=== PATIENT | female | born 1940 | race American Indian/Alaskan Native ===

== ENCOUNTER 2021-07-19 11:10 | Outpatient (AMBR) | payer MEDICARE, MEDICAID, SELFPAY ==
--- NOTE | 2021-07-19 11:26 | PTNOTE_ITS ---
PT OP Initial Eval Patient Information Visit Reasons: Achilles tendinitis Medical Diagnosis: M76.61 Treatment Dx #1: R ankle pain Start of Care: 07/19/21 Date of Onset: 1 month ago Initial Assessment Subjective Pt is 80 yr old female who reports R ankle pain and points to the Achilles region and lateral malleolus as site of pain. She got a pain injection about 4 weeks ago which gave relief for a week and then pain returned. Pain level today is 6/10 and she can walk about 1/2 a block. PLOF: pt could ambulate further not limited by R ankle pain but she has Hx of L LE pain on back side since last year that limits walking distance. PMH: HTN, allergies, Imaging: results in EMR of R calcaneal spur Pt goal: to get rid of the pain Objective R ankle AROM: DF: 5 deg Plantarflexion: to 40 deg Inv/Eversion 15 deg Strength: Ankle DF 3+/5, PF: 4-/5 TTP: moderate of distal Achilles and lateral mallelous Sensation: intact to light touch of R foot Assessment Pt presentation consistent with referring Dx. Pt has limited ankle DF ROM and gastroc tightness with decreased ankle PF strength with heel raises. Pt has L knee pain that contributes to antalgic gait pattern and painful WB on R foot. Pt requires skilled therapy in order to improve ROM, strength and gait and has fair rehab potential. Eval followed by HEP. Short Term and Half-Way Goals 1. Ind with HEP 2. Improved ankle DF to 10 deg and PF to 50 deg 3. Decreased TTP of R ankle from mod to min 4. Pt will ambulate with symmetrical gait pattern one block Treatment Plan 90 day POC in order to complete visits. Pt requires skilled therapy in order to increase strength, decrease pain and address aforementioned impairments. Rx may consist of Therex, Manual therapy, Neuromuscular re-education, Gait training, and therapeutic activities. Modalities as indicated-moist heat packs, ice packs, estim Frequency and Duration 2x a week for 6 weeks Certification Dates: 07/19/21 to 10/18/21 Office Procedures PT Procedures PT Date of Service: 07/19/21 OP PT Eval Mod Complex 30 minutes: Yes
== END 2021-07-20 23:59 | disposition home or self-care (01) ==
PROVIDERS: PCP Physician Assistant; Referring Provider Physician Assistant; Visit Provider Nurse Practitioner Family
DX: M25.571 Pain in right ankle and joints of right foot (principal); R26.2 Difficulty in walking, not elsewhere classified; I10 Essential (primary) hypertension
CPT/HCPCS: 97162

== ENCOUNTER 2021-07-30 13:39 | Outpatient (AMBR) | payer MEDICARE, MEDICAID, SELFPAY ==
--- NOTE | 2021-07-21 14:05 | PTNOTE_ITS ---
PT Outpatient Daily Note Date of Service: 07/21/21 OP Daily Note Visit Reasons: Achilles tendinitis Outpatient Physical Therapy Treatment Date: 07/21/21 Subjective: Same as time of evaluation Objective: See F/S for therex MT: STM Achilles with Graston x10 Assessment: Min/mod TTP of Achilles today with manual therapy. Pt able to demonstrate proper technique with gastrocnemius stretching in standing. Plan: continue per POC Length of Time (minutes) of Treatment: 30 Minutes Office Procedures PT Procedures PT Date of Service: 07/21/21 Therapeutic Exercise 15 minutes: Yes Manual Salvage Inspector 15 minutes: Yes
--- NOTE | 2021-07-27 13:37 | PTNOTE_ITS ---
PT Outpatient Daily Note Date of Service: 07/27/21 OP Daily Note Visit Reasons: Achilles tendinitis Outpatient Physical Therapy Treatment Date: 07/27/21 Subjective: Not too sore after last visit Objective: See F/S for therex MT: STM Achilles with Graston x10 Assessment: Min/mod TTP of Achilles today with manual therapy. Pt transfers and ambulates slowly and cautiously appropriate for age. Plan: continue per POC Length of Time (minutes) of Treatment: 30 Minutes Office Procedures PT Procedures PT Date of Service: 07/21/21 Therapeutic Exercise 15 minutes: Yes Manual Feeder Switchboard Operator 15 minutes: Yes PT Procedures PT Date of Service: 07/27/21 Therapeutic Exercise 15 minutes: Yes Manual Feeder Switchboard Operator 15 minutes: Yes
--- NOTE | 2021-07-30 14:12 | PTNOTE_ITS ---
PT OP Progress/Discharge Note Date of Service: 07/30/21 Progress Note/DC Note Progress Note/Discharge Note: DC Note Patient Information Visit Reasons: Achilles tendinitis Service Continue Service or Discharge: Discharge Discharge Date: 07/30/21 Status Subjective: Pt is ready to be done with therapy as her ankle is doing much better. It's not hurting except when she does her stretches. Objective: R ankle AROM: DF: 10 deg PF: 50 deg Ankle DF: 4-/5 TTP: min of Achilles MT: STM Achilles with Graston x10 Assessment: Pt has attended the eval and 3 Rx visits and made good progress to meet therapy goals. Pt has improved DF ROM to 10 deg and ankle DF strength is improved. Much less TTP of Achilles with manual therapy. Plan: D/C with HEP Office Procedures PT Procedures PT Date of Service: 07/21/21 Therapeutic Exercise 15 minutes: Yes Manual Infantry Operations Specialist 15 minutes: Yes PT Procedures PT Date of Service: 07/27/21 Therapeutic Exercise 15 minutes: Yes Manual Infantry Operations Specialist 15 minutes: Yes PT Procedures PT Date of Service: 07/30/21 Therapeutic Exercise 15 minutes: Yes Manual Infantry Operations Specialist 15 minutes: Yes
== END 2021-08-19 23:59 | disposition home or self-care (01) ==
PROVIDERS: PCP Nurse Practitioner Family; Referring Provider Nurse Practitioner Family; Visit Provider Nurse Practitioner Family
DX: M25.571 Pain in right ankle and joints of right foot (principal); R26.2 Difficulty in walking, not elsewhere classified; I10 Essential (primary) hypertension
CPT/HCPCS: 97110; 97140

== ENCOUNTER 2024-12-03 11:11 | Inpatient (IN) | payer MEDICARE, MEDICAID, SELFPAY ==
[2024-12-03] VITALS (7 sets, daily range): BP systolic 91–120; BP diastolic 51–65; PULSE 82–150; RESP 18–29; TEMP 36.7–37.3; O2SAT 96–100; BMI 19.1
--- NOTE | 2024-12-03 11:25 | EKG_ITS ---
[facility] Test Date: 2024-12-03 Pat Name: MOY ANDRADE Department: Room: - Gender: Female Skin Toggler: : 1940 Requested By: Melvin Bond Order Number: [id number] Reading MD: Melvin Bond Measurements Intervals Centre Rate: 80 P: 39 OH: 155 QRS: -46 QRSD: 117 T: 59 QT: 337 QTc: 391 Interpretive Statements SINUS RHYTHM WITH OCCASIONAL VENTRICULAR PREMATURE COMPLEXES LEFT ANTERIOR FASCICULAR BLOCK [QRS AXIS <= -45, QR IN I, RS IN II] POSSIBLE ANTERIOR MYOCARDIAL INFARCTION , PROBABLY OLD [30 ms Q WAVE IN V3/V4, OR R < 0.2 mV IN V4] Compared to ECG 01/05/2024 14:15:35 Ventricular premature complex(es) now present Left anterior fascicular block now present Sinus bradycardia no longer present Left-axis deviation no longer present Myocardial infarct finding still present /store/S0/[id number]/ecg/[id number].pdf
--- NOTE | 2024-12-03 11:25 | XR_ITS ---
Examination: AP chest single view Technique one AP portable upright chest single view Exam date and time: December 03, 2024 1255 hours Comparison March 21, 2024 INDICATIONS: COPD diagnosis with shortness of breath today. FINDINGS: Extensive bilateral lung opacity consistent with pneumonia Consider underlying pulmonary fibrosis Ladder prominence left ventricle Moderate ectasia thoracic aorta IMPRESSION: Extensive bilateral pneumonia Consider underlying pulmonary fibrosis
--- NOTE | 2024-12-03 11:26 | EDNOTE_ITS ---
<Statement entered by Madhavi Mujica MD - 12/05/24 15:28> As co-signing physician, I was present and available for consult prn. I concur with the plan and care as documented by the midlevel provider. ED General RME/HPI General Chief complaint: Weakness Stated complaint: WEAKNESS Time Seen by Provider: 12/03/24 11:24 Arrival date/time: 12/03/24 11:11 CC: Weakness decreased appetite HPI patient presents the ER via EMS with known history of COPD on 2 L nasal cannula chronically the patient is not able to tell me specifically what is going on EMS report that she has also been intermittently incontinent Related Data Home Medications ?Medication ?Instructions ?Recorded ?Confirmed lisinopril 10 mg tablet 2.5 mg PO DAILY ##0 10/22/13 11/27/23 simvastatin 20 mg tablet 1 tab PO HS ##0 10/22/13 11/27/23 sertraline 100 mg tablet 50 mg PO HS 01/28/19 11/27/23 trazodone 100 mg tablet 50 mg PO HS PRN Sleep 01/28/19 11/27/23 Previous Rx's ?Medication ?Instructions ?Recorded azithromycin 250 mg tablet See Rx Instructions PO .COMPLEX #6 01/05/24 (Zithromax) tabs Allergies Allergy/AdvReac Type Severity Reaction Status Date / Time aspirin Allergy GI UPSET Verified 11/27/23 10:02 codeine Allergy DIFFICULTY Verified 11/27/23 10:02 BREATHING Penicillins Allergy Diarrhea Verified 11/27/23 10:02 Review of Systems Review of Systems Narrative Review of Systems: GEN: No fever, no chills, no weight loss EYES: No discharge, no visual changes, no pain HEENT: No ear pain, no congestion, no sore throat PULM: No shortness of breath, no cough, no congestion CV: No chest pain, no dyspnea on exertion, no palpitations GI: No nausea, no vomiting, no diarrhea, no pain, no constipation : No frequency, no urgency, no dysuria MUSC/SKEL: No joint pain, no back pain SKIN: No rash PSYCH: No hallucinations, no depression HEME/LYMPH: No easy bleeding or bruising tendencies NEURO: + weakness, no headache Past Medical History Past Medical History NEUROLOGIC: Negative Neurological Disorders or Seizures CARDIAC: Positive Hypercholesterolemia and Hypertension; Negative Cardiac Disorders or Congestive Heart Failure RESPIRATORY: Positive Asthma, Pneumonia and Sleep Apnea; Negative Chronic Obstructive Pulmonary Disease (COPD) or Bronchitis GASTROINTESTINAL: Negative Gastrointestinal Disorders GENITOURINARY: Positive Renal Disease; Negative Genitourinary Disorders MUSCULOSKELETAL: Positive Musculoskeletal Disorders and Arthritis ENT: Positive Cataracts and Deafness ENDOCRINE: Negative Endocrine Disorders, Diabetes Mellitus Type 1 or Diabetes Mellitus Type 2 HEMATOLOGIC: Negative Blood Disorders or Sickle Cell Disease PSYCHO/SOCIAL: Positive Depression and Anxiety OTHER HISTORY: Positive Chicken Pox, Measles and Mumps; Negative Hospitalization, Blood Transfusions, Blood Transfusion Reaction, Anesthesia Reactions or Cancer Family History FAMILY HISTORY: Positive Family Cardiac Disorders (CHF Stroke); Negative Family Anesthesia Reaction Surgical History SURGICAL: Positive Ear Surgery, Cochlear Implant, Abdominal Surgery, Hysterectomy and Tubal Ligation Social History SMOKING STATUS: Never smoker ED Exam Narrative Physical exam: [General: Appears mildly uncomfortable but not in any acute distress Head normocephalic HEENT: Eyes pupils are PERRLA EOMs are intact mouth pink dry membranes uvula is midline swallow symmetrical phonation is normal. All the subsystems of HEENT are within acceptable limits Neck is supple nontender no JVD no edema Chest equal chest rise nontender to palpation Respiratory: Tachypneic, with poor inspiratory effort. Clear to auscultation no wheezes crackles or rubs CV: Rate rhythm is irregular no murmurs rubs or clicks Abdomen is soft nontender no masses positive bowel sounds all 4 quadrants Back: No CVA tenderness no spinous process tenderness from cervical spine thoracic and lumbar spine Skin: Intact no petechiae rash induration ulceration or crepitus Extremities: Moving all extremity against resistance cap refill less than 2 seconds neurosensory intact. No lower extremity edema. Neuro: Awake alert oriented x1, self, Glascow coma 15 no focal deficits] Course Quality Measures VTE prophylaxis Orders Category Date Time Status EKG (ED ONLY) *Do not use* NOW Care 12/03/24 11:25 Completed In and Out Catheter X1 Care 12/03/24 12:59 Completed Insert IV NOW Care 12/03/24 12:59 Active EKG (ED Only) Stat Exams 12/03/24 11:25 Draft XR chest 1V Stat Exams 12/03/24 11:25 Completed B-Type Natriuretic Peptide Stat Lab 12/03/24 11:32 Completed CBC Stat Lab 12/03/24 11:32 Completed Comprehensive Metabolic Panel Stat Lab 12/03/24 11:32 Completed Drug Screen,Urine Stat Lab 12/03/24 14:09 Received LDH (Lactate Dehydrogenase) Stat Lab 12/03/24 11:32 Completed Magnesium Stat Lab 12/03/24 11:32 Completed Partial Thromboplastin Time Stat Lab 12/03/24 11:32 Completed Prothrombin Time with INR Stat Lab 12/03/24 11:32 Completed Troponin I Stat Lab 12/03/24 11:32 Completed Urinalysis Stat Lab 12/03/24 14:09 Completed cefTRIAXone/D5w 1gm IV premix [Rocephin/D5w 1gm IV Med 12/03/24 14:35 Discontinued premix] 50 ml IV X1 Vital Signs Vital signs: Vital Signs Temperature 98.2 F 12/03/24 11:16 Pulse Rate 94 12/03/24 11:16 Respiratory Rate 22 H 12/03/24 11:16 Blood Pressure 104/61 12/03/24 11:16 Pulse Oximetry (%) 97 12/03/24 11:16 Oxygen Delivery Method Nasal Cannula 12/03/24 11:16 Oxygen Flow Rate 2 12/03/24 11:16 [facility] Patient data External records reviewed:: [facility] previous records and EMS form Clinical information provided by:: patient and EMS Social determinants that could affect healthcare access:: none Patient has the following chronic illnesses:: COPD How is presenting disease/condition affected by chronic disease/condition?: u neffected by Evaluation data The following diagnostics were reviewed and interpreted by me:: lab results, radiology exam(s) and EKG tracing(s) Lab and/or radiology exams considered but not ordered:: EKG performed at 2030 shows a ventricular rate of 80 AR interval 155 QRS of 117 QTc of 374 normal sinus rhythm occasional PVC. CBC shows leukocytosis of 20,000 no anemia thrombocytopenia Coags show an INR of 1.5 CMP shows sodium 130 potassium of 4.8 chloride of 91 CO2 31.9 BUN of 7 creatinine 2.2 glucose 121 LDH of 254 Troponin is negative BNP is negative X-ray shows extensive pneumonia Interpretation Summary: Patient oxygen saturations stained but greater than 95% however when she was decreased to 2 L nasal cannula the patient became tachypneic and tachycardic, returned back up to 4 L. Patient's case discussed with Dr. Lance resident for Dr. Ferguson who agrees to accept the patient for pneumonia. Medications Medications considered but not ordered:: None Medication administrations:: Medication Administration History Discontinued Medications Ceftriaxone Sodium/Dextrose (Rocephin/D5w 1gm Iv Premix) 50 mls @ 100 mls/hr IV X1 ONE Stop: 12/03/24 15:04 Last Admin: 12/03/24 14:51 Dose: 100 mls/hr Documented By: FRANCK None Consultations Consultation(s) initiated? (list below): No Diagnosis Differential Diagnosis ED Complaint MDM: Pneumonia COPD exacerbation CHF Most likely diagnosis given after review of the tests above:: Pneumonia Admission Indicated Admission indicated?: indicated Explain why admission is indicated or not indicated:: Requires further medical management Admission Request Was there a request for admission?: No Disposition Plan Disposition Plan: Admit Medical Decision Making Differential Diagnosis Differential Diagnosis: Pneumonia COPD exacerbation CHF Lab Data 12/03/24 11:32 12/03/24 11:32 Labs: Lab Results 12/03/24 12/03/24 Range/Units 11:32 14:09 WBC 20.7 H (3.6-11.0) Thou/mm3 RBC 3.72 L (4.00-5.20) Miln/mm3 Hgb 12.4 (12.0-16.0) g/dL Hct 36.8 (36.0-46.0) % MCV 99 (80-100) fL MCH 33.3 (25.0-35.0) pg MCHC 33.7 (31.0-37.0) g/dl RDW Std Deviation 43.2 (36.4-46.3) fL Plt Count 140 (140-440) Thou/mm3 Neut % (Auto) 86 H (37-80) % Lymph % (Auto) 6 L (10-50) % [place] % (Auto) 8 (0-12) % Eos % (Auto) 0 (0-10) % Baso % (Auto) 0 (0-2.5) % Neut # (Auto) 17.7 H (1.8-7.7) Thou/mm3 Lymph # (Auto) 1.2 (1.0-4.8) Thou/mm3 [place] # (Auto) 1.6 H (0.0-0.8) Thou/mm3 Eos # (Auto) 0.0 (0.0-0.5) Thou/mm3 Baso # (Auto) 0.1 (0.0-0.2) Thou/mm3 Immature Gran # (Auto) 0.13 H (0.00-0.00) Thou/mm3 Absolute Nucleated RBC 0.00 (0.00-0.00) Thou/mm3 Immature Gran % 1 H (0-0) % Nucleated RBC % 0 (0) /100 WBC PT 15.7 H (9.0-12.2) Seconds INR 1.5 H (0.9-1.3) APTT 29.5 (22.0-36.0) Seconds Sodium 130 L (136-145) mMol/L Potassium 4.8 (3.4-5.1) mMol/L Chloride 91 L (98-107) mMol/L Carbon Dioxide 31.9 H (20.0-31.0) mMol/L Anion Gap 7 (7-16) BUN 22 (9-23) mg/dL Creatinine 0.8 (0.6-1.3) mg/dL Estim Creat Clear Calc 40.5 L (>60) mL/min eGFR > 60 (60 - ) See Note BUN/Creatinine Ratio 28 H (12-20) Ratio Glucose 121 H (74-106) mg/dL Calculated Osmolality 265 L (275-295) Calcium 10.3 (8.3-10.6) mg/dL Corrected Calcium 10.4 H (8.5-10.1) mg/dL Magnesium 1.3 L (1.6-2.6) mg/dL Total Bilirubin 1.2 (0.3-1.2) mg/dL AST 28 (0-34) U/L ALT 9 L (10-49) U/L Alkaline Phosphatase 54 (46-116) U/L Lactate Dehydrogenase 254 H (120-246) U/L Troponin I < 0.020 (0.0-0.045) ng/mL B-Natriuretic Peptide 95 (0-100) pg/mL Total Protein 7.0 (5.7-8.2) gm/dL Albumin 3.9 (3.4-4.8) gm/dL Globulin 3.1 (2.3-3.5) gm/dL Albumin/Globulin Ratio 1.3 (1.2-2.2) Ur Collection Type Clean Catch Urine Color Yellow (Lt Yel-Yel) Urine Clarity Clear (Clear/Hazy) Urine pH 7.0 (5.0-7.0) Ur Specific [place] 1.025 (1.001-1.035) Urine Protein Trace (Neg - Trace) Urine Glucose (UA) Negative (Negative) Urine Ketones 1+ A (Negative) Urine Blood Negative (Negative) Urine Nitrite Negative (Negative) Urine Bilirubin Negative (Negative) Urine Urobilinogen (Auto) 8.0 (0.0-1.0) mg/dL Ur Leukocyte Esterase Negative (Negative) Urine RBC 5 H (0-3) /hpf Urine WBC 1 (0-5) /hpf Ur Squamous Epith Cells 0 (0-5) /hpf Urine Bacteria None (None) Hyaline Casts < 1 (0-1) /hpf Discharge Plan Plan Patient Disposition: Other Care w/in Hosp ([facility]) Patient condition on transfer: Stable Prescriptions/Referrals Prescriptions/Med Rec: No Action simvastatin 20 MG tablet 1 tab PO HS Qty: 0 lisinopril 10 MG tablet 2.5 mg PO DAILY Qty: 0 trazodone 100 mg Tablet 50 mg PO HS PRN (Reason: Sleep) Hold Instructions: Resume on 11/28/23. sertraline 100 mg Tablet 50 mg PO HS azithromycin [Zithromax] 250 mg tablet See Rx Instructions .ROUTE .COMPLEX Qty: 6 0RF Rx Instructions: For 250 mg dose pack: take 500 mg today (day 1), then 250 mg for 4 days (days 2-5) Problem List Clinical Impression: Pneumonia Patient/Caregiver Discharge Instructions Print Language: Faroese Stand Alone Forms: Aev Award Info., Patient Portal Info Letter PA/MALENA Supervising Physician ESTEBAN/MALENA Supervising Physician: Melvin Ritchie ENP
[2024-12-03 11:51] LABS: Basophils # (Auto) 0.1 Thou/mm3 (0.0-0.2); Basophils % (Auto) 0 % (0-2.5); Eosinophils % (Auto) 0 % (0-10); Hematocrit 36.8 % (36.0-46.0); Hemoglobin 12.4 g/dL (12.0-16.0); Immature Granulocytes % (Auto) 1 % (0-0); Immature Granulocytes Auto 0.13 Thou/mm3 (0.00-0.00); Lymphocytes # (Auto) 1.2 Thou/mm3 (1.0-4.8); Lymphocytes % (Auto) 6 % (10-50); Mean Corpuscular HGB Conc 33.7 g/dl (31.0-37.0); Mean Corpuscular Hemoglobin 33.3 pg (25.0-35.0); Mean Corpuscular Volume 99 fL (80-100); Monocytes # (Auto) 1.6 Thou/mm3 (0.0-0.8); Monocytes % (Auto) 8 % (0-12); Neutrophils # (Auto) 17.7 Thou/mm3 (1.8-7.7); Neutrophils % (Auto) 86 % (37-80); Nucleated Red Blood Cell % 0 /100 WBC (0); Platelet Count 140 Thou/mm3 (140-440); RDW Standard Deviation 43.2 fL (36.4-46.3); Red Blood Count 3.72 Miln/mm3 (4.00-5.20); White Blood Count 20.7 Thou/mm3 (3.6-11.0)
[2024-12-03 12:06] LABS: INR 1.5 (0.9-1.3); Partial Thromboplastin Time 29.5 Seconds (22.0-36.0); Prothrombin Time 15.7 Seconds (9.0-12.2)
[2024-12-03 12:21] LABS: Alanine Aminotransferase 9 U/L (10-49); Albumin, Serum 3.9 gm/dL (3.4-4.8); Albumin/Globulin Ratio 1.3 (1.2-2.2); Alkaline Phosphatase 54 U/L (46-116); Anion Gap 7 (7-16); Aspartate Amino Transferase 28 U/L (0-34); BUN/Creatinine Ratio 28 Ratio (12-20); Bilirubin,Total 1.2 mg/dL (0.3-1.2); Blood Urea Nitrogen 22 mg/dL (9-23); Calcium 10.3 mg/dL (8.3-10.6); Calcium (Corrected) 10.4 mg/dL (8.5-10.1); Carbon Dioxide 31.9 mMol/L (20.0-31.0); Chloride 91 mMol/L (98-107); Creatinine (Component) 0.8 mg/dL (0.6-1.3); Estimated Creatinine Clearance 40.5 mL/min (>60); Globulin 3.1 gm/dL (2.3-3.5); Glucose 121 mg/dL (74-106); LDH (Lactate Dehydrogenase) 254 U/L (120-246); Magnesium 1.3 mg/dL (1.6-2.6); Osmolality,Calculated 265 (275-295); Potassium 4.8 mMol/L (3.4-5.1); Sodium 130 mMol/L (136-145); Troponin I < 0.020 ng/mL (0.0-0.045); eGFR > 60 See Note
[2024-12-03 12:25] LABS: B-Type Natriuretic Peptide 95 pg/mL (0-100)
[2024-12-03 14:32] LABS: Collection Type, Urine Clean Catch; Squamous Epithelial Cell,Urine 0 /hpf (0-5)
[2024-12-03 14:46] LABS: Bilirubin,Urine Negative (Negative); Blood,Urine Negative (Negative); Clarity,Urine Clear (Clear/Hazy); Color,Urine Yellow (Lt Yel-Yel); Glucose, Urine Negative (Negative); Hyaline Casts,Urine < 1 /hpf (0-1); Ketones,Urine 1+ (Negative); Leukocyte Esterase,Urine Negative (Negative); Nitrite,Urine Negative (Negative); Protein,Urine Trace (Neg - Trace); RBC,Urine 5 /hpf (0-3); Specific Gravity,Urine 1.025 (1.001-1.035); WBC,Urine 1 /hpf (0-5)
[2024-12-03] MEDS: cefTRIAXone/D5w 1gm IV premix 50 ML IV (14:51)
[2024-12-03 15:36] LABS: Amphetamine/Methamp Scrn,U Negative (Negative); Barbiturate Screen,Urine Negative (Negative); Benzodiazepines Screen,Urine Negative (Negative); Benzoylecgonine Screen, Ur Negative (Negative); Fentanyl Screen,Urine Negative (Negative); Opiate Screen,Urine Positive (Negative); THC Screen,Urine Negative (Negative)
--- NOTE | 2024-12-03 17:17 | ESHP_ITS ---
<Statement entered by Kalyan Sen MD - 12/03/24 17:19> This patient is a 84-year-old female with past medical history of COPD on 2 L NC presented to the hospital due to shortness of breath and cough. She was also complaining of generalized weakness. Patient was tachypneic and had poor inspiratory effort. Patient is AO x 1. Vitals showed blood pressure 113/60, heart rate 93 and respiratory rate 29. She was saturating well on 2 L NC. Labs revealed white count 20.7, hemoglobin stable at 12.4. Chemistry panel was showing sodium 130, bicarb 31.9. Blood glucose 121. Calcium 10.4 magnesium 1.3. Troponin I was negative. UA was showing RBCs. U tox was positive for opiates. EKG showed sinus rhythm. Chest x-ray showed bibasilar pneumonia. We admit the patient for COPD exacerbation. We started on IV Levaquin every 48 hour, breathing treatments electrolytes were repleted and started on Lovenox for DVT prophylaxis. Patient is also on fluids at 75 cc/h. Blood cultures and MRSA screen ordered. All labs and orders were reviewed. Of note, patient was initially on comfort care however POLST form was signed in the presence of ED physician, senior resident physician and patient's family including her 2 daughters. Patient is DNR and selective treatment. Will continue with new POLST form. I saw and examined the patient, and I agree with current management stated by Dr Farzaneh MD,PGY1. Plan of care was discussed with the attending physician and resident physician. Disclaimer: Despite multiple revisions, due to the dictation software being used, the document bellow may not be free of grammatical errors including phonetic/typographic errors. However, this does not deter from our commitment to providing health care in the patient's best interest in mind. Dr. Mckinley MD, PGY 2 Documentation for date of: 12/03/24 HPI History of Present Illness Chief complaint: Shortness of breath History of present illness: 84 y/o F with PMHx significant for hypertension, HLD, anxiety, COPD presents to ED from home with chief complaint shortness of breath x 3 days with acute worsening x 1 day. Patient was in her usual state of health until approximately 3 days ago when she noted shortness of breath. Earlier this afternoon patient developed significant worsening, appeared confused to family. Patient was found to have POLST form stating comfort care measures only, on further conversation patient decided she wanted selective treatment. New POLST form was signed, patient remains DNR/DNI. Patient endorses fevers, shortness of breath, nausea. Patient denies chest pain, vomiting. ED COURSE: Lab significant for: WBC 20.7, hemoglobin 12.4, sodium 130, magnesium 1.3. Imaging significant for: Chest ray showing extensive bilateral pneumonia. Patient received Rocephin in ED. Mildly tachycardic, tachypneic, afebrile. PMH: Hypertension, HLD, anxiety, COPD PSH: Hysterectomy, cholecystectomy, left shoulder rotator cuff repair SH: Denies alcohol, tobacco, illicit drug use Allergies:?Penicillin, codeine Medications: Simvastatin, Ativan, lisinopril, Pepcid, [place] Review of Systems Review of Systems Systems Reviewed: All systems reviewed, normal except as documented Past Medical History Past Medical History Comments PMH COMMENT: PMH: Hypertension, HLD, anxiety, COPD PSH: Hysterectomy, cholecystectomy, left shoulder rotator cuff repair SH: Denies alcohol, tobacco, illicit drug use Allergies:?Penicillin, codeine Medications: Simvastatin, Ativan, lisinopril, Pepcid, [place] Exam Vital Signs Temp Pulse Resp BP Pulse Ox O2 Del Method O2 Flow Rate 98.2 F 150 H 24 H 113/60 100 Room Air 2 12/03/24 15:01 12/03/24 17:12 12/03/24 17:12 12/03/24 15:01 12/03/24 17:12 12/03/24 15:01 12/03/24 17:12 Narrative Exam PE: Gen: Elderly, frail-appearing woman HEENT: NCAT, PERRLA, EOMI, MMM, anicteric conjunctivae. CVS: normal S1 and S2. RRR. No M/R/G. Resp: Diffuse rhonchi, worse in left lower lobe. Abd: soft, non-tender, non-distended. BS+ in all 4 quadrants. MSK: Good ROM in BUE & BLE. No edema or rash. Neuro: CN II-XII grossly intact. Strength 5/5 in BUE & BLE. Alert and oriented x3. Psych: appropriate mood and affect. Results: Labs 12/04/24 05:33 12/04/24 05:33 Labs: Short CBC 12/03/24 Range/Units 11:32 WBC 20.7 H (3.6-11.0) Thou/mm3 Hgb 12.4 (12.0-16.0) g/dL Hct 36.8 (36.0-46.0) % Plt Count 140 (140-440) Thou/mm3 BMP 12/03/24 11:32 Sodium 130 L Potassium 4.8 Chloride 91 L Carbon Dioxide 31.9 H BUN 22 Creatinine 0.8 Glucose 121 H Calcium 10.3 Cardiac Enzymes 12/03/24 Range/Units 11:32 Troponin I < 0.020 (0.0-0.045) ng/mL Liver Function 12/03/24 Range/Units 11:32 Total Bilirubin 1.2 (0.3-1.2) mg/dL AST 28 (0-34) U/L ALT 9 L (10-49) U/L Alkaline Phosphatase 54 (46-116) U/L Albumin 3.9 (3.4-4.8) gm/dL Urine 12/03/24 Range/Units 14:09 Urine Color Yellow (Lt Yel-Yel) Urine Clarity Clear (Clear/Hazy) Urine pH 7.0 (5.0-7.0) Ur Specific [place] 1.025 (1.001-1.035) Urine Protein Trace (Neg - Trace) Urine Glucose (UA) Negative (Negative) Quality Measures Quality Measures VTE prophylaxis Advance care planning discussed with:: patient and child Medications Home Medications and Allergies Home Medications ?Medication ?Instructions ?Recorded ?Confirmed ?Type lisinopril 10 mg tablet 2.5 mg PO DAILY ##0 10/22/13 11/27/23 History simvastatin 20 mg tablet 1 tab PO HS ##0 10/22/13 11/27/23 History sertraline 100 mg tablet 50 mg PO HS 01/28/19 11/27/23 History trazodone 100 mg tablet 50 mg PO HS PRN Sleep 01/28/19 11/27/23 History hydrocodone 7.5 mg-acetaminophen 1 tab PO BID PRN Pain 12/04/24 12/04/24 History 300 mg tablet Allergies Allergy/AdvReac Type Severity Reaction Status Date / Time aspirin Allergy GI UPSET Verified 11/27/23 10:02 codeine Allergy DIFFICULTY Verified 11/27/23 10:02 BREATHING Penicillins Allergy Diarrhea Verified 11/27/23 10:02 Visit Medications Acetaminophen (Acetaminophen 325 Mg Tablet) 650 mg PO Q6H PRN PRN Reason: Fever >100.4 or pain Stop: 01/02/25 16:33 Albuterol/Ipratropium (Albuterol/Ipratropium (Duoneb) Rt Lyn 3 Ml Nebu) 3 ml INH Q2HR PRN PRN Reason: SHORTNESS OF BREATH OR WHEEZE Stop: 01/02/25 16:33 Dextrose (Dextrose 50%-Water Inj 50 Ml Syringe) 25 ml IV Q15MIN PRN PRN Reason: BG 50-70 responsive npo pt Stop: 01/02/25 17:05 Dextrose (Dextrose 50%-Water Inj 50 Ml Syringe) 50 ml IV Q15MIN PRN PRN Reason: BG <50 OR BG <70 & pt unresponsive Stop: 01/02/25 17:05 Enoxaparin Sodium (Enoxaparin Sod Inj 40 Mg/0.4 Ml Syringe) 40 mg SC QDAY TOYA Stop: 12/18/24 08:59 Famotidine (Famotidine 20 Mg Tablet) 20 mg PO HS TOYA Stop: 01/02/25 20:59 Glucagon (Glucagon Inj 1 Mg Vial) 1 mg IM Q15MIN PRN PRN Reason: BG <70, and no IV access Sodium Chloride (Ns) 1,000 mls @ 75 mls/hr IV .[id number] ONE Stop: 12/04/24 05:56 Sodium Chloride (Ns) 500 mls @ 999 mls/hr IV .Q31M ONE Stop: 12/03/24 17:28 Magnesium Sulfate (Magnesium Sulfate Ivpb) 4 gm in 50 mls @ 12.5 mls/hr IV X1 ONE Stop: 12/03/24 21:05 Magnesium Sulfate (Magnesium Sulfate Ivpb) 2 gm in 50 mls @ 25 mls/hr IV X1 ONE Stop: 12/03/24 23:59 Levofloxacin/Dextrose (Levaquin Ivpb) 750 mg in 150 mls @ 100 mls/hr IV Q48H TOYA Stop: 12/10/24 17:14 Magnesium Hydroxide (Milk Of Magnesia Susp 30 Ml Udc) 30 ml PO QDAY PRN; Protocol PRN Reason: CONSTIPATION Stop: 01/02/25 16:33 Ondansetron HCl (Ondansetron Inj 2 Mg/Ml Inj 2 Ml) 4 mg IV Q6H PRN; Protocol PRN Reason: NAUSEA OR VOMITING Stop: 01/02/25 16:33 Sennosides (Senna Tablet) 1 tab PO QDAY PRN; Protocol PRN Reason: constipation Stop: 01/02/25 16:33 Discontinued Medications Ceftriaxone Sodium/Dextrose (Rocephin/D5w 1gm Iv Premix) 50 mls @ 100 mls/hr IV X1 ONE Stop: 12/03/24 15:04 Last Infusion: 12/03/24 15:43 Dose: Infused Sodium Chloride (Ns) 500 mls @ 999 mls/hr IV .Q31M ONE Stop: 12/03/24 17:04 Levofloxacin/Dextrose (Levaquin Ivpb) 750 mg in 150 mls @ 100 mls/hr IV Q48H TOYA Stop: 12/10/24 16:44 Lisinopril (Lisinopril 2.5 Mg Tablet) 2.5 mg PO QDAY TOYA Stop: 01/03/25 08:59 Assessment & Plan Plan 84 y/o F with PMHx significant for hypertension, HLD, anxiety, COPD presents to ED from home with chief complaint shortness of breath x 3 days with acute worsening x 1 day, admitted for pneumonia. #Community-acquired pneumonia Patient presents from home with shortness of breath that got acutely worse today. Chest x-ray showed extensive bilateral pneumonia, diffuse rhonchi on physical exam. WBCs 20.7, patient tachypneic but saturating in the low 90s on 2 L O2, which patient uses at home. Cocci, COVID, flu testing ordered. Patient has allergy to penicillin. Received Rocephin in the ED. 1 L bolus normal saline ordered. -Levaquin 750 mg IV every 48 hours (started 12/03) -Doxycycline 100 mg p.o. twice daily -IVF: Normal saline 75 mL/h x 1 L -COVID, cocci, flu testing ordered, follow-up -Blood cultures pending, follow-up #Hyponatremia Patient mildly hyponatremic at 130, asymptomatic. -Monitor #COPD, patient history Patient has history as stated. On 2 L O2 at home, currently saturating low 90s. -O2, maintain saturations greater than 88% -DuoNebs as needed #HTN, patient history Patient has history as stated. Blood pressure currently soft in setting of acute infection. -Monitor, consider resuming home meds #History of anxiety on Lorazepam 0.5mg BID prn at home DVT prophylaxis: Lovenox GI prophylaxis: Pepcid Diet: Cardiac, dysphagia 3 Lines: Peripheral IV Code status: DNR Plan of care discussed with senior resident Dr. Sen PGY?[address] Ferguson. Casa Moy MD PGY?1 Attending Provider Attestation/Addendum I have discussed and was present for the essential components of the history, physical examination, diagnosis, and treatment plan with the resident. I agree with the patient's care as documented by the resident and amended herein by me. Jorge Ferguson, DO. Patient seen and evaluated in the ED. Patient admitted for bilateral pneumonia, started on empiric broad-spectrum antibiotics. Per the patient's daughter bedside, the patient was on hospice care and according to her, they were informed that hospice would give them better resources at home however after explaining exactly the purpose of hospice the patient decided she would rather have home health, the POLST form has been changed to selective treatment only. Will restart home meds as appropriate, patient has been on benzodiazepines and opioids hence we will restart as appropriate try to mitigate any withdrawal symptoms however will need to taper down. Continue to monitor closely Talisha. Although this document has been carefully reviewed, there may still be some phonetic and other typographical errors. These errors are purely grammatical due to imperfections in the software program and should not be construed in any way to compromise the substance of the patient's medical care during this visit.
[2024-12-03] MEDS: ACETAMINOPHEN 325 MG TABLET 650 MG PO (18:22)
[2024-12-03] MEDS: SODIUM CHLORIDE 0.9% 500 ML 500 ML 999 ML IV ×2 (18:33→18:44)
[2024-12-03] MEDS: Magnesium Sulfate 4 GM Ivpb 4 GM/50 ML BAG IV (18:36)
[2024-12-03] MEDS: LEVOFLOXACIN/D5W 750MG IVPB 750 MG/150 ML BAG 100 MG IV (18:57)
[2024-12-03] MEDS: LORazepam 0.5 MG TABLET PO (20:25)
[2024-12-03] MEDS: DOXYCYCLINE 100 MG TABLET PO (20:25)
[2024-12-03] MEDS: FAMOTIDINE 20 MG TABLET PO (20:25)
[2024-12-03] MEDS: SODIUM CHLORIDE 0.9% 1000 ML 1,000 ML 75 ML IV (20:38)
--- NOTE | 2024-12-03 20:40 | PC.NURSE ---
DAUGHTER AT BEDSIDE STATES WILL BRING MEDICATION LIST IN THE MORNING.
[2024-12-03] MEDS: Magnesium Sulfate 2 GM Ivpb 2 GM/50 ML BAG IV (22:33)
--- NOTE | 2024-12-03 23:30 | PC.NURSE ---
Pt came in from ER, alert and oriented, no C/O of pain at this time. Pt is on 2L/ NC sating 100%. Pt daughter at bedside.
[2024-12-04] VITALS (7 sets, daily range): BP systolic 104–119; BP diastolic 55–73; PULSE 64–113; RESP 16–23; TEMP 36.2–36.6; O2SAT 98–100; BMI 11.0
--- NOTE | 2024-12-04 00:12 | PC.NURSE ---
Pt tried to get up to the BSC to void, noted SOB and increased work of breathing, pt was instructed to use bedpan, verbalized understanding.
[2024-12-04] MEDS: HYDROcodone/APAP 5/325 TABLET 1 TAB PO (01:11)
[2024-12-04 05:43] LABS: Basophils % (Auto) 0 % (0-2.5); Eosinophils % (Auto) 0 % (0-10); Hematocrit 33.2 % (36.0-46.0); Hemoglobin 11.2 g/dL (12.0-16.0); Immature Granulocytes % (Auto) 1 % (0-0); Immature Granulocytes Auto 0.12 Thou/mm3 (0.00-0.00); Lymphocytes % (Auto) 5 % (10-50); Mean Corpuscular HGB Conc 33.7 g/dl (31.0-37.0); Mean Corpuscular Volume 98 fL (80-100); Monocytes # (Auto) 1.4 Thou/mm3 (0.0-0.8); Monocytes % (Auto) 7 % (0-12); Neutrophils % (Auto) 87 % (37-80); Nucleated Red Blood Cell % 0 /100 WBC (0); Platelet Count 143 Thou/mm3 (140-440); RDW Standard Deviation 42.9 fL (36.4-46.3); Red Blood Count 3.39 Miln/mm3 (4.00-5.20); White Blood Count 19.5 Thou/mm3 (3.6-11.0)
[2024-12-04 06:47] LABS: Alanine Aminotransferase < 7 U/L (10-49); Albumin, Serum 3.2 gm/dL (3.4-4.8); Albumin/Globulin Ratio 1.2 (1.2-2.2); Alkaline Phosphatase 49 U/L (46-116); Anion Gap 7 (7-16); Aspartate Amino Transferase 18 U/L (0-34); BUN/Creatinine Ratio 40 Ratio (12-20); Bilirubin,Total 0.8 mg/dL (0.3-1.2); Blood Urea Nitrogen 20 mg/dL (9-23); Calcium 9.3 mg/dL (8.3-10.6); Calcium (Corrected) 9.9 mg/dL (8.5-10.1); Carbon Dioxide 29.5 mMol/L (20.0-31.0); Chloride 96 mMol/L (98-107); Creatinine (Component) 0.5 mg/dL (0.6-1.3); Estimated Creatinine Clearance 62.1 mL/min (>60); Globulin 2.7 gm/dL (2.3-3.5); Glucose 98 mg/dL (74-106); Magnesium 2.6 mg/dL (1.6-2.6); Osmolality,Calculated 267 (275-295); Phosphorous 2.5 mg/dL (2.4-5.1); Potassium 3.9 mMol/L (3.4-5.1); Sodium 132 mMol/L (136-145); Total Protein 5.9 gm/dL (5.7-8.2); eGFR > 60 See Note
[2024-12-04] MEDS: DOXYCYCLINE 100 MG TABLET PO (08:57)
[2024-12-04] MEDS: LORazepam 0.5 MG TABLET PO ×2 (08:57→21:11)
[2024-12-04] MEDS: ENOXAPARIN SOD INJ 40 MG/0.4 ML SYRINGE SC (08:58)
[2024-12-04] MEDS: LEVOFLOXACIN/D5W 750MG IVPB 750 MG/150 ML BAG 100 MG IV (10:11)
--- NOTE | 2024-12-04 10:35 | CHAP ---
Visited with family member and patient and gave comfort and prayer.
--- NOTE | 2024-12-04 13:34 | PC.SS ---
Initial assessment: This is 84 year old female admitted for pneumonia. Patient currently on 2L of oxygen. Patient lives at home with son. Confirmed demographic information. Patient's daughter, Bere Palacios was identified as the patient's medical decision maker, if patient is not able to. Patient requires assistance with completing ADL's. Patient has a walker, home oxygen concentrator and humidifier. Baseline for oxygen is 2-3L. Patient is followed by Dr. Eunice Monroy for primary care. Patient's family would like short term SNF placement, patient is agreeable. PT is also recommending SNF. No preferred facility. Family will be doing research/tours to decide what SNF they would like. D/c plan: SNF Next of kin: daughter, Bere Palacios
--- NOTE | 2024-12-04 13:53 | PC.SS ---
SNF inquiry sent via [facility].
[2024-12-04 14:17] LABS: Cocci Serology, IgM Negative (Negative)
--- NOTE | 2024-12-04 14:40 | PC.SS ---
Rounding note: new admit, pending cultures. Family wants SNF. Patient will need to meet 3midnights inpatient due to medicare rules.
--- NOTE | 2024-12-04 14:47 | ESPR_ITS ---
<Statement entered by Kalyan Sen MD - 12/04/24 15:06> Patient was seen and examined at the bedside this morning. Patient was saturating well on 2 L which is her home oxygen requirement. Patient reported to have improvement in her shortness of breath however was a little drowsy given her home Ativan was restarted last night. We are currently awaiting blood cultures and will likely discharge her day after tomorrow as family wishes to send her to SNF for acute rehab. Plan is to continue Levaquin today and likely start the patient on ceftriaxone and doxycycline given her old age. Family wants to go for SNF placement and will likely need 2 more midnight stay for SNF placement. Labs were unremarkable and blood pressure was stable. All labs and orders were reviewed. I saw and examined the patient, and I agree with current management stated by Dr Farzaneh DO,PGY1. Plan of care was discussed with the attending physician and resident physician. Disclaimer: Despite multiple revisions, due to the dictation software being used, the document bellow may not be free of grammatical errors including phonetic/typographic errors. However, this does not deter from our commitment to providing health care in the patient's best interest in mind. Dr. Mckinley MD, PGY 2 Documentation for date of: 12/04/24 Subjective Subjective Interval history: No overnight events. Patient seen and examined at bedside. Patient reports mild subjective improvement in symptoms. Endorses cough but has had persistent cough for some time, currently nonproductive. Denies fevers, chills, chest pain, shortness of breath, nausea, vomiting. Flu, COVID, cocci negative. Blood cultures pending, will follow-up. Transition patient from Levaquin to Rocephin and doxycycline. Exam Vital Signs Temp Pulse Resp BP Pulse Ox O2 Del Method O2 Flow Rate 97.8 F 93 17 108/60 99 Nasal Cannula 2 12/04/24 12:00 12/04/24 12:12/04/24 12:12/04/24 12:12/04/24 12:12/04/24 12:12/04/24 12:00 Narrative Exam PE: Gen: Elderly, frail-appearing woman HEENT: NCAT, PERRLA, EOMI, MMM, anicteric conjunctivae. CVS: normal S1 and S2. RRR. No M/R/G. Resp: Mild crackles in right lung upper and lower alejo, left upper and lower lung alejo clear to auscultation. Abd: soft, non-tender, non-distended. BS+ in all 4 quadrants. MSK: Good ROM in BUE & BLE. No edema or rash. Neuro: CN II-XII grossly intact. Strength 5/5 in BUE & BLE. Alert and oriented x3. Psych: appropriate mood and affect. Objective Labs 12/04/24 05:33 12/04/24 05:33 Labs: Laboratory Results - last 24 hr 12/03/24 12/03/24 12/04/24 14:09 17:31 05:33 WBC 19.5 H RBC 3.39 L Hgb 11.2 L Hct 33.2 L MCV 98 MCH 33.0 MCHC 33.7 RDW Std Deviation 42.9 Plt Count 143 Neut % (Auto) 87 H Lymph % (Auto) 5 L [place] % (Auto) 7 Eos % (Auto) 0 Baso % (Auto) 0 Neut # (Auto) 17.0 H Lymph # (Auto) 1.0 [place] # (Auto) 1.4 H Eos # (Auto) 0.0 Baso # (Auto) 0.0 Immature Gran # (Auto) 0.12 H Absolute Nucleated RBC 0.00 Immature Gran % 1 H Nucleated RBC % 0 Sodium 132 L Potassium 3.9 D Chloride 96 L Carbon Dioxide 29.5 Anion Gap 7 BUN 20 Creatinine 0.5 L Estim Creat Clear Calc 62.1 eGFR > 60 BUN/Creatinine Ratio 40 H Glucose 98 Calculated Osmolality 267 L Calcium 9.3 Corrected Calcium 9.9 Phosphorus 2.5 Magnesium 2.6 Total Bilirubin 0.8 AST 18 ALT < 7 L Alkaline Phosphatase 49 Total Protein 5.9 Albumin 3.2 L D Globulin 2.7 Albumin/Globulin Ratio 1.2 Ur Collection Type Clean Catch Urine Color Yellow Urine Clarity Clear Urine pH 7.0 Ur Specific [place] 1.025 Urine Protein Trace Urine Glucose (UA) Negative Urine Ketones 1+ A Urine Blood Negative Urine Nitrite Negative Urine Bilirubin Negative Urine Urobilinogen (Auto) 8.0 Ur Leukocyte Esterase Negative Urine RBC 5 H Urine WBC 1 Ur Squamous Epith Cells 0 Urine Bacteria None Hyaline Casts < 1 Urine Opiates Screen Positive A Urine Fentanyl Screen Negative Ur Barbiturates Screen Negative U Amphetamin/Meth Scrn Negative U Benzodiazepines Scrn Negative U Cocaine Metab Screen Negative U Marijuana (THC) Screen Negative Coccidioides IgM Ab Negative Quality Measures Quality Measures VTE prophylaxis Advance care planning discussed with:: patient and child Assessment & Plan Assessment Current Active Medications: Generic Name Dose Route Start Last Admin Trade Name Freq PRN Reason Stop Dose Admin Acetaminophen 650 mg 12/04/24 11:27 Acetaminophen 325 Mg Tablet PO 01/02/25 16:33 Q6H PRN Fever >100.4 or pain(1-3) Hydrocodone Bitart/Acetaminophen 1 tab 12/04/24 11:24 Hydrocodone/Apap 5/325 Tablet PO 12/09/24 11:23 Q6HR PRN PAIN SCALE 4-10(Mod-Sev Albuterol/Ipratropium 3 ml 12/03/24 16:34 Albuterol/Ipratropium (Duoneb) Rt Lyn 3 Ml Nebu INH 01/02/25 16:33 Q2HR PRN SHORTNESS OF BREATH OR WHEEZE Dextrose 25 ml 12/03/24 17:06 Dextrose 50%-Water Inj 50 Ml Syringe IV 01/02/25 17:05 Q15MIN PRN BG 50-70 responsive npo pt Dextrose 50 ml 12/03/24 17:06 Dextrose 50%-Water Inj 50 Ml Syringe IV 01/02/25 17:05 Q15MIN PRN BG <50 OR BG <70 & pt unresponsive Enoxaparin Sodium 40 mg 12/04/24 09:00 12/04/24 08:58 Enoxaparin Sod Inj 40 Mg/0.4 Ml Syringe SC 12/18/24 08:59 40 mg QDAY TOYA Administration Famotidine 20 mg 12/03/24 21:00 12/03/24 20:25 Famotidine 20 Mg Tablet PO 01/02/25 20:59 20 mg HS TOYA Administration Glucagon 1 mg 12/03/24 17:06 Glucagon Inj 1 Mg Vial IM Q15MIN PRN BG <70, and no IV access Lorazepam 0.5 mg 12/03/24 18:52 12/04/24 08:57 Lorazepam 0.5 Mg Tablet PO 12/08/24 20:59 0.5 mg BID PRN Administration ANXIETY Magnesium Hydroxide 30 ml 12/03/24 16:34 Milk Of Magnesia Susp 30 Ml Udc PO 01/02/25 16:33 QDAY PRN CONSTIPATION Protocol Ondansetron HCl 4 mg 12/03/24 16:34 Ondansetron Inj 2 Mg/Ml Inj 2 Ml IV 01/02/25 16:33 Q6H PRN NAUSEA OR VOMITING Protocol Sennosides 1 tab 12/03/24 16:34 Senna Tablet PO 01/02/25 16:33 QDAY PRN constipation Protocol Plan 84 y/o F with PMHx significant for hypertension, HLD, anxiety, COPD presents to ED from home with chief complaint shortness of breath x 3 days with acute worsening x 1 day, admitted for pneumonia. #Community-acquired pneumonia Patient presents from home with shortness of breath that got acutely worse today. Chest x-ray showed extensive bilateral pneumonia, diffuse rhonchi on physical exam. WBCs 20.7, patient tachypneic but saturating in the low 90s on 2 L O2, which patient uses at home. Cocci, COVID, flu testing ordered. Patient has allergy to penicillin. Received Rocephin in the ED. 1 L bolus normal saline ordered. Patient received 1 L maintenance fluids at rate of 75 mL/h. Patient appears euvolemic, will hold further IVF, encourage oral hydration. COVID, cocci, flu all negative. -Levaquin 750 mg IV every 48 hours (12/03 - 12/04) -Rocephin 1 g IV daily (started 12/05) -Doxycycline 100 mg p.o. twice daily (12/05) -Blood cultures pending, follow-up #Hyponatremia Patient mildly hyponatremic at 130, asymptomatic. Improving. -Monitor #COPD, patient history Patient has history as stated. On 2 L O2 at home, currently saturating low 90s. -O2, maintain saturations greater than 88% -DuoNebs as needed #HTN, patient history Patient has history as stated. Blood pressure currently soft in setting of acute infection. -Monitor, consider resuming home meds #History of anxiety On Lorazepam 0.5mg BID prn at home. Will continue to avoid withdrawal symptoms. DVT prophylaxis: Lovenox GI prophylaxis: Pepcid Diet: Cardiac, dysphagia level 3 Lines: Peripheral IV Code status: DNR Plan of care discussed with senior resident Dr. Sen PGY?[address] Ferguson. Casa Moy MD PGY?1 Attending Provider Attestation/Addendum I have discussed and was present for the essential components of the history, physical examination, diagnosis, and treatment plan with the resident. I agree with the patient's care as documented by the resident and amended herein by me. Jorge Ferguson DO. Patient seen and evaluated this AM. Patient admitted for community-acquired pneumonia, WBC slightly down trended today to 19, blood culture still pending, will continue ceftriaxone and doxycycline possible DC to SNF tomorrow if patient continues to improve. Although this document has been carefully reviewed, there may still be some phonetic and other typographical errors. These errors are purely grammatical due to imperfections in the software program and should not be construed in any way to compromise the substance of the patient's medical care during this visit.
[2024-12-04] MEDS: FAMOTIDINE 20 MG TABLET PO (20:00)
[2024-12-05] VITALS (9 sets, daily range): BP systolic 102–131; BP diastolic 54–77; PULSE 68–121; RESP 18–27; TEMP 36.1–36.6; O2SAT 94–100; BMI 19.1
[2024-12-05 06:09] LABS: Basophils % (Auto) 0 % (0-2.5); Eosinophils % (Auto) 0 % (0-10); Hematocrit 32.7 % (36.0-46.0); Immature Granulocytes % (Auto) 1 % (0-0); Immature Granulocytes Auto 0.07 Thou/mm3 (0.00-0.00); Lymphocytes # (Auto) 1.2 Thou/mm3 (1.0-4.8); Lymphocytes % (Auto) 9 % (10-50); Mean Corpuscular HGB Conc 33.6 g/dl (31.0-37.0); Mean Corpuscular Hemoglobin 32.3 pg (25.0-35.0); Mean Corpuscular Volume 96 fL (80-100); Monocytes # (Auto) 0.9 Thou/mm3 (0.0-0.8); Monocytes % (Auto) 7 % (0-12); Neutrophils # (Auto) 11.4 Thou/mm3 (1.8-7.7); Neutrophils % (Auto) 83 % (37-80); Nucleated Red Blood Cell % 0 /100 WBC (0); Platelet Count 144 Thou/mm3 (140-440); RDW Standard Deviation 41.8 fL (36.4-46.3); Red Blood Count 3.41 Miln/mm3 (4.00-5.20); White Blood Count 13.7 Thou/mm3 (3.6-11.0)
[2024-12-05 07:02] LABS: Alanine Aminotransferase < 7 U/L (10-49); Albumin/Globulin Ratio 1.2 (1.2-2.2); Alkaline Phosphatase 56 U/L (46-116); Anion Gap 7 (7-16); Aspartate Amino Transferase 18 U/L (0-34); BUN/Creatinine Ratio 40 Ratio (12-20); Bilirubin,Total 0.7 mg/dL (0.3-1.2); Blood Urea Nitrogen 16 mg/dL (9-23); Calcium 9.4 mg/dL (8.3-10.6); Calcium (Corrected) 10.2 mg/dL (8.5-10.1); Carbon Dioxide 29.1 mMol/L (20.0-31.0); Chloride 96 mMol/L (98-107); Creatinine (Component) 0.4 mg/dL (0.6-1.3); Estimated Creatinine Clearance 80.7 mL/min (>60); Globulin 2.6 gm/dL (2.3-3.5); Glucose 86 mg/dL (74-106); Osmolality,Calculated 264 (275-295); Potassium 3.6 mMol/L (3.4-5.1); Sodium 132 mMol/L (136-145); Total Protein 5.6 gm/dL (5.7-8.2); eGFR > 60 See Note
--- NOTE | 2024-12-05 08:27 | PC.SS ---
PASRR completed. LV1.
[2024-12-05] MEDS: ENOXAPARIN SOD INJ 40 MG/0.4 ML SYRINGE SC (08:47)
[2024-12-05] MEDS: DOXYCYCLINE 100 MG TABLET PO ×2 (08:47→20:48)
[2024-12-05] MEDS: cefTRIAXone/D5w 1gm IV premix 50 ML IV (08:47)
[2024-12-05 10:39] LABS: Magnesium 1.5 mg/dL (1.6-2.6)
[2024-12-05 11:57] LABS: Cocci Serology, IgG Negative (Negative)
[2024-12-05] MEDS: LORazepam 0.5 MG TABLET PO (13:13)
--- NOTE | 2024-12-05 13:42 | ESPR_ITS ---
<Statement entered by Kalyan Sen MD - 12/05/24 18:51> Patient was seen and examined at the bedside this morning. Patient is admitted for community-acquired pneumonia and currently being treated with ceftriaxone and doxycycline. Cocci IgM came negative. Patient will stay for 1 more midnight and will be likely discharged to SNF tomorrow morning. Blood cultures, negative for first 24 hours. All labs and orders were reviewed. I saw and examined the patient, and I agree with current management stated by Dr Farzaneh MD,PGY1. Plan of care was discussed with the attending physician and resident physician. Disclaimer: Despite multiple revisions, due to the dictation software being used, the document bellow may not be free of grammatical errors including phonetic/typographic errors. However, this does not deter from our commitment to providing health care in the patient's best interest in mind. Dr. Mckinley MD, PGY 2 Documentation for date of: 12/05/24 Subjective Subjective Interval history: No overnight events. Patient seen examined at bedside. Patient feels well, reports objective improvement in symptoms. Denies fevers, shortness of breath, chest pain, abdominal pain, nausea or vomiting. Continuing current management. Exam Vital Signs Temp Pulse Resp BP Pulse Ox O2 Del Method O2 Flow Rate 97.1 F 80 20 131/77 H 99 Nasal Cannula 2 12/05/24 12:00 12/05/24 12:00 12/05/24 12:00 12/05/24 12:00 12/05/24 12:00 12/05/24 12:00 12/05/24 12:00 Narrative Exam PE: Gen: Elderly, frail-appearing woman HEENT: NCAT, PERRLA, EOMI, MMM, anicteric conjunctivae. CVS: normal S1 and S2. RRR. No M/R/G. Resp: Mild crackles in right lung upper and lower alejo, improved from yesterday, left upper and lower lung alejo clear to auscultation. Abd: soft, non-tender, non-distended. BS+ in all 4 quadrants. MSK: Good ROM in BUE & BLE. No edema or rash. Neuro: CN II-XII grossly intact. Strength 5/5 in BUE & BLE. Alert and oriented x3. Psych: appropriate mood and affect. Objective Labs 12/05/24 05:00 12/05/24 05:00 Labs: Laboratory Results - last 24 hr 12/03/24 12/05/24 17:31 05:00 WBC 13.7 H D RBC 3.41 L Hgb 11.0 L Hct 32.7 L MCV 96 MCH 32.3 MCHC 33.6 RDW Std Deviation 41.8 Plt Count 144 Neut % (Auto) 83 H Lymph % (Auto) 9 L Coffey % (Auto) 7 Eos % (Auto) 0 Baso % (Auto) 0 Neut # (Auto) 11.4 H Lymph # (Auto) 1.2 Coffey # (Auto) 0.9 H Eos # (Auto) 0.0 Baso # (Auto) 0.0 Immature Gran # (Auto) 0.07 H Absolute Nucleated RBC 0.00 Immature Gran % 1 H Nucleated RBC % 0 Sodium 132 L Potassium 3.6 Chloride 96 L Carbon Dioxide 29.1 Anion Gap 7 BUN 16 Creatinine 0.4 L Estim Creat Clear Calc 80.7 eGFR > 60 BUN/Creatinine Ratio 40 H Glucose 86 Calculated Osmolality 264 L Calcium 9.4 Corrected Calcium 10.2 H Magnesium 1.5 L Total Bilirubin 0.7 AST 18 ALT < 7 L Alkaline Phosphatase 56 Total Protein 5.6 L Albumin 3.0 L Globulin 2.6 Albumin/Globulin Ratio 1.2 Coccidioides IgG Ab Negative Coccidioides IgM Ab Negative Quality Measures Quality Measures VTE prophylaxis Advance care planning discussed with:: patient and child Assessment & Plan Assessment Current Active Medications: Generic Name Dose Route Start Last Admin Trade Name Freq PRN Reason Stop Dose Admin Acetaminophen 650 mg 12/04/24 11:27 Acetaminophen 325 Mg Tablet PO 01/02/25 16:33 Q6H PRN Fever >100.4 or pain(1-3) Hydrocodone Bitart/Acetaminophen 1 tab 12/04/24 11:24 Hydrocodone/Apap 5/325 Tablet PO 12/09/24 11:23 Q6HR PRN PAIN SCALE 4-10(Mod-Sev Albuterol/Ipratropium 3 ml 12/03/24 16:34 Albuterol/Ipratropium (Duoneb) Rt Lyn 3 Ml Nebu INH 01/02/25 16:33 Q2HR PRN SHORTNESS OF BREATH OR WHEEZE Benzonatate 100 mg 12/05/24 07:43 Benzonatate 100 Mg Capsule PO 01/04/25 07:42 Q8HR PRN COUGH Protocol Dextrose 25 ml 12/03/24 17:06 Dextrose 50%-Water Inj 50 Ml Syringe IV 01/02/25 17:05 Q15MIN PRN BG 50-70 responsive npo pt Dextrose 50 ml 12/03/24 17:06 Dextrose 50%-Water Inj 50 Ml Syringe IV 01/02/25 17:05 Q15MIN PRN BG <50 OR BG <70 & pt unresponsive Doxycycline Hyclate 100 mg 12/05/24 09:00 12/05/24 08:47 Doxycycline 100 Mg Tablet PO 12/12/24 08:59 100 mg BID TOYA Administration Enoxaparin Sodium 40 mg 12/04/24 09:00 12/05/24 08:47 Enoxaparin Sod Inj 40 Mg/0.4 Ml Syringe SC 12/18/24 08:59 40 mg QDAY TOYA Administration Famotidine 20 mg 12/03/24 21:00 12/04/24 20:00 Famotidine 20 Mg Tablet PO 01/02/25 20:59 20 mg HS TOYA Administration Glucagon 1 mg 12/03/24 17:06 Glucagon Inj 1 Mg Vial IM Q15MIN PRN BG <70, and no IV access Ceftriaxone Sodium/Dextrose 50 mls @ 100 mls/hr 12/05/24 09:00 12/05/24 08:47 Rocephin/D5w 1gm Iv Premix IV 12/12/24 08:59 100 mls/hr QDAY TOYA Administration Lorazepam 0.5 mg 12/03/24 18:52 12/05/24 13:13 Lorazepam 0.5 Mg Tablet PO 12/08/24 20:59 0.5 mg BID PRN Administration ANXIETY Magnesium Hydroxide 30 ml 12/03/24 16:34 Milk Of Magnesia Susp 30 Ml Udc PO 01/02/25 16:33 QDAY PRN CONSTIPATION Protocol Ondansetron HCl 4 mg 12/03/24 16:34 Ondansetron Inj 2 Mg/Ml Inj 2 Ml IV 01/02/25 16:33 Q6H PRN NAUSEA OR VOMITING Protocol Sennosides 1 tab 12/03/24 16:34 Senna Tablet PO 01/02/25 16:33 QDAY PRN constipation Protocol Plan 84 y/o F with PMHx significant for hypertension, HLD, anxiety, COPD presents to ED from home with chief complaint shortness of breath x 3 days with acute worsening x 1 day, admitted for pneumonia. #Community-acquired pneumonia Patient presents from home with shortness of breath that got acutely worse today. Chest x-ray showed extensive bilateral pneumonia, diffuse rhonchi on physical exam. WBCs 20.7, patient tachypneic but saturating in the low 90s on 2 L O2, which patient uses at home. Cocci, COVID, flu testing ordered. Patient has allergy to penicillin. Received Rocephin in the ED. 1 L bolus normal saline ordered. Patient received 1 L maintenance fluids at rate of 75 mL/h. Patient appears euvolemic, will hold further IVF, encourage oral hydration. COVID, cocci, flu all negative. -Levaquin 750 mg IV every 48 hours (12/03 - 12/04) -Rocephin 1 g IV daily (started 12/05) -Doxycycline 100 mg p.o. twice daily (12/05) -Blood cultures pending, follow-up #Hyponatremia Patient mildly hyponatremic at 130, asymptomatic. Improving. -Monitor #COPD, patient history Patient has history as stated. On 2 L O2 at home, currently saturating low 90s. -O2, maintain saturations greater than 88% -DuoNebs as needed #HTN, patient history Patient has history as stated. Blood pressure currently soft in setting of acute infection. -Monitor, consider resuming home meds #History of anxiety On Lorazepam 0.5mg BID prn at home. Will continue to avoid withdrawal symptoms. DVT prophylaxis: Lovenox GI prophylaxis: Pepcid Diet: Cardiac, dysphagia level 3 Lines: Peripheral IV Code status: DNR Plan of care discussed with senior resident Dr. Sen PGY?[address] Gonzalez. Casa Moy MD PGY?1 Attending Provider Attestation/Addendum I attest that I was physically present for the evaluation, physical examination, lab and imaging review of the patient with the residents. I discussed the case with the residents and agree with the findings and plans of care as documented above. At bedside today, patient states she is feeling well and does not have new complaints. Has been saturating well on 2 L nasal cannula which is her baseline. Continues to have some crackles on right lung. WBC count has been improving. Continues to be on IV Rocephin and oral doxycycline. Pending blood culture. Buzz Gonzalez MD
--- NOTE | 2024-12-05 15:39 | PC.SS ---
Addendum entered by STACY Jones 12/05/24 16:24: Radha from [facility] informed that they can accept the patient at their facility when ready for discharge. Addendum entered by STACY Jones 12/05/24 15:44: Attempted to contact Radha at [facility] to determine if able to accept the patient at their facility. Pending response. Original Note: SS follow up: spoke with patient's daughter Bere, to present SNF options. Preferred SNF is [facility] and second choice is [facility].
[2024-12-05] MEDS: FAMOTIDINE 20 MG TABLET PO (20:48)
[2024-12-05] MEDS: HYDROcodone/APAP 5/325 TABLET 1 TAB PO (20:49)
[2024-12-05] MEDS: MG HYD/AL HYD/SIME (Maalox Reg) SUSP 30 ML UDC PO (23:24)
[2024-12-06] VITALS (8 sets, daily range): BP systolic 101–156; BP diastolic 55–75; PULSE 60–100; RESP 17–24; TEMP 36.2–36.7; O2SAT 95–99; BMI 18.6
[2024-12-06 06:00] LABS: Basophils % (Auto) 0 % (0-2.5); Eosinophils # (Auto) 0.3 Thou/mm3 (0.0-0.5); Eosinophils % (Auto) 3 % (0-10); Hematocrit 33.1 % (36.0-46.0); Hemoglobin 11.4 g/dL (12.0-16.0); Immature Granulocytes % (Auto) 0 % (0-0); Immature Granulocytes Auto 0.03 Thou/mm3 (0.00-0.00); Lymphocytes # (Auto) 1.7 Thou/mm3 (1.0-4.8); Lymphocytes % (Auto) 17 % (10-50); Mean Corpuscular HGB Conc 34.4 g/dl (31.0-37.0); Mean Corpuscular Hemoglobin 32.9 pg (25.0-35.0); Mean Corpuscular Volume 96 fL (80-100); Monocytes % (Auto) 10 % (0-12); Neutrophils # (Auto) 7.3 Thou/mm3 (1.8-7.7); Neutrophils % (Auto) 70 % (37-80); Nucleated Red Blood Cell % 0 /100 WBC (0); Platelet Count 180 Thou/mm3 (140-440); Red Blood Count 3.46 Miln/mm3 (4.00-5.20); White Blood Count 10.3 Thou/mm3 (3.6-11.0)
[2024-12-06 06:29] LABS: Alanine Aminotransferase < 7 U/L (10-49); Albumin, Serum 3.2 gm/dL (3.4-4.8); Albumin/Globulin Ratio 1.2 (1.2-2.2); Alkaline Phosphatase 61 U/L (46-116); Anion Gap 6 (7-16); Aspartate Amino Transferase 22 U/L (0-34); BUN/Creatinine Ratio 43 Ratio (12-20); Bilirubin,Total 0.5 mg/dL (0.3-1.2); Blood Urea Nitrogen 17 mg/dL (9-23); Calcium 9.5 mg/dL (8.3-10.6); Calcium (Corrected) 10.1 mg/dL (8.5-10.1); Carbon Dioxide 30.8 mMol/L (20.0-31.0); Chloride 97 mMol/L (98-107); Creatinine (Component) 0.4 mg/dL (0.6-1.3); Estimated Creatinine Clearance 78.9 mL/min (>60); Globulin 2.6 gm/dL (2.3-3.5); Glucose 98 mg/dL (74-106); Magnesium 1.4 mg/dL (1.6-2.6); Osmolality,Calculated 269 (275-295); Potassium 3.7 mMol/L (3.4-5.1); Sodium 134 mMol/L (136-145); Total Protein 5.8 gm/dL (5.7-8.2); eGFR > 60 See Note
[2024-12-06] MEDS: MG HYD/AL HYD/SIME (Maalox Reg) SUSP 30 ML UDC PO (06:40)
[2024-12-06] MEDS: DOXYCYCLINE 100 MG TABLET PO (09:16)
[2024-12-06] MEDS: ENOXAPARIN SOD INJ 40 MG/0.4 ML SYRINGE SC (09:16)
[2024-12-06] MEDS: Magnesium Sulfate 2 GM Ivpb 2 GM/50 ML BAG IV (09:17)
[2024-12-06] MEDS: POTASSIUM PHOS 22.5 MMOL in SODIUM CHLORIDE 0.9% 500 ML 500 ML 82.778 MMOL IV (09:18)
[2024-12-06] MEDS: cefTRIAXone/D5w 1gm IV premix 50 ML IV (09:18)
[2024-12-06 10:50] LABS: Influenza A Ag Negative; Influenza B Ag Negative
--- NOTE | 2024-12-06 10:56 | PC.SS ---
Addendum entered by STACY Jones 12/06/24 12:51: ETA 5pm [facility]. Notified nurse, Radha at [facility] ands patients family at bed side. Addendum entered by STACY Jones 12/06/24 11:01: Updated patient's daughter, Bere Palacios of today's discharge to SNF. Addendum entered by STACY Jones 12/06/24 10:58: Radha informs labs were received and can confirms they can accept the patient today at their facility. [employer] arranged. Reference number: [id number]. 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 Original Note: SS follow up: met with patient to confirm the d/c plan to [facility]. Patient is agreeable. Contacted Radha at [facility] who requested labs for the patient. Sent updated labs via [facility].
[2024-12-06] MEDS: Magnesium Sulfate 4 GM Ivpb 4 GM/50 ML BAG IV (11:11)
--- NOTE | 2024-12-06 14:23 | ESDS_ITS ---
<Statement entered by Kalyan Sen MD - 12/06/24 14:37> I saw and examined the patient, and I agree with current management stated by Dr Farzaneh MD,PGY1. Plan of care was discussed with the attending physician and resident physician. Disclaimer: Despite multiple revisions, due to the dictation software being used, the document bellow may not be free of grammatical errors including phonetic/typographic errors. However, this does not deter from our commitment to providing health care in the patient's best interest in mind. Dr. Mckinley MD, PGY 2 Planned Discharge Date 12/06/24 DS: Providers Provider Date of admission: 12/03/24 16:34 Primary care physician: Eunice Monroy([facility])MARIANA Admitting Provider: Luis Miguel Ferguson DO Attending Provider on Admission: Buzz Gonzalez MD Consults: 12/03/24 16:34 Referral Physical Therapy Routine Comment: Physician Instructions: Attending Provider on DC: Buzz Gonzalez MD Discharging Provider: Casa Moy MD DS: Diagnosis Problem List Completed Was Problem List Reviewed/Reconciled?: Yes Hospital Course Hospital Course Hospital course: 84 y/o F with PMHx significant for hypertension, HLD, anxiety, COPD presented to ED from home with chief complaint shortness of breath x 3 days with acute worsening x 1 day. Patient was in her usual state of health until approximately 3 days prior when she noted shortness of breath. Earlier the day of admission patient developed significant worsening, appeared confused to family. Patient was found to have POLST form stating comfort care measures only, on further conversation patient decided she wanted selective treatment. New POLST form was signed, patient remained DNR/DNI. Admitted for treatment of acute hypoxic respiratory failure secondary to pain acquired pneumonia. Patient appropriately treated with antibiotics, remained on O2, same level has at home. Patient reports subjective improvement in symptoms during her hospital stay. Home blood pressure medication was held as patient's blood pressure was soft, will be discharged with holding parameters. Patient medically cleared and stable for discharge. Discharge planning: You are being discharged on following medications: -Doxycycline 100 mg twice daily for the next 4 days -Benzonatate 100 mg as needed for cough, up to 3 times daily -Senna, take 1 tab daily as needed for constipation Please continue taking all other medications as previously prescribed Follow-up with PCP in 1-2 weeks Diagnoses: #Community-acquired pneumonia #Hyponatremia #COPD, patient history #HTN, patient history #History of anxiety Plan of care discussed with senior resident Dr. Sen PGY?[address] Gonzalez. Casa Moy MD PGY?1 Time Spent with Patient Time attestation: Total time spent providing and/or coordinating discharge services: Exam Vital Signs Temp Pulse Resp BP Pulse Ox O2 Del Method O2 Flow Rate 97.8 F 100 22 H 102/59 L 97 Room Air 2 12/06/24 11:45 12/06/24 13:50 12/06/24 13:50 12/06/24 11:45 12/06/24 13:50 12/06/24 11:45 12/06/24 13:50 Narrative Exam PE: Gen: Elderly, frail-appearing woman HEENT: NCAT, PERRLA, EOMI, MMM, anicteric conjunctivae. CVS: normal S1 and S2. RRR. No M/R/G. Resp: Mild diffuse wheezing in all lung alejo. Abd: soft, non-tender, non-distended. BS+ in all 4 quadrants. MSK: Good ROM in BUE & BLE. No edema or rash. Neuro: CN II-XII grossly intact. Strength 5/5 in BUE & BLE. Alert and oriented x3. Psych: appropriate mood and affect. Discharge Plan Plan Patient Disposition: Xfer [facility] (SNF) Patient condition on transfer: Stable Prescriptions/Referrals Prescriptions/Med Rec: New doxycycline monohydrate 100 mg capsule 100 mg PO BID 4 Days Qty: 8 0RF sennosides [Senna Lax] 8.6 mg Tablet 8.6 mg PO QDAY PRN (Reason: constipation) Qty: 30 0RF benzonatate 100 mg Capsule 100 mg PO Q8HR PRN (Reason: Cough) 30 Days Qty: 30 0RF Continued simvastatin 20 MG tablet 1 tab PO HS Qty: 0 hydrocodone-acetaminophen 7.5-300 mg tablet 1 tab PO BID PRN (Reason: Pain) Patient Comments: TAKE 1 TABLET BY MOUTH EVERY 12 HOURS NEEDED famotidine 20 mg tablet 20 mg PO QDAY Patient Comments: TAKE 1 TABLET BY MOUTH EVERY DAY lorazepam 0.5 mg tablet 0.5 mg PO BID PRN (Reason: Anxiety) Patient Comments: TAKE 1 TABLET BY MOUTH TWICE DAILY NEEDED lisinopril 2.5 mg tablet 2.5 mg PO QDAY Qty: 30 0RF Patient Comments: TAKE 1 TABLET BY MOUTH EVERY DAY Rx Instructions: Hold if SBP drops below 100 and DBP below 60 mmHg Referrals: Papi)Eunice PA-C [Primary Care Provider] - Patient/Caregiver Discharge Instructions Discharge Activity: activity as tolerated Other Discharge Activity Instructions:: You are being discharged on following medications: -Doxycycline 100 mg twice daily for the next 4 days -Benzonatate 100 mg as needed for cough, up to 3 times daily -Senna, take 1 tab daily as needed for constipation Please continue taking all other medications as previously prescribed Follow-up with PCP in 1-2 weeks Print Language: Sami Stand Alone Forms: Ave Award Info., Patient Portal Info Letter Discharge Order Discharge Orders: Discharge (Routine); Ordered 12/06/24 Ordered By: Kalyan Sen Quality Discharge Quality Measures VTE prophylaxis MD Attestestation MD Attestation I attest that I was physically present for the evaluation, physical examination, lab and imaging review of the patient with the residents. I discussed the case with the residents and agree with the findings and plans of care as documented above. At bedside, patient continues to feel well and does not have new complaints. Saturating well on 2 L nasal cannula which is her baseline at home, tolerating diet well. Blood cultures have been negative for 48 hours. We will discharge patient to SNF on oral antibiotics. Buzz Gonzalez MD
[2024-12-06] MEDS: HYDROcodone/APAP 5/325 TABLET 1 TAB PO (15:13)
== END 2024-12-06 17:15 | disposition skilled nursing facility (03) | DRG 194 ==
LOC: SERX 17:02 → SERHOLD 17:04 → S3NX 23:38
PROVIDERS: Registered Nurse General Practice; Student in an Organized Health Care Education/Training Program; Admitting Provider Student in an Organized Health Care Education/Training Program; Emergency Provider Emergency Medicine; PCP Nurse Practitioner Family; Visit Provider Student in an Organized Health Care Education/Training Program
DX: J18.9 Pneumonia, unspecified organism (principal); E87.1 Hypo-osmolality and hyponatremia; J44.0 Chronic obstructive pulmonary disease with (acute) lower respiratory infection; J44.1 Chronic obstructive pulmonary disease with (acute) exacerbation; F41.9 Anxiety disorder, unspecified; I10 Essential (primary) hypertension; E78.5 Hyperlipidemia, unspecified; Z66 Do not resuscitate; Z51.5 Encounter for palliative care; Z90.710 Acquired absence of both cervix and uterus; Z79.899 Other long term (current) drug therapy; Z88.0 Allergy status to penicillin
CPT/HCPCS: 36415; 71045; 80053; 80307; 81001; 83615; 83735; 83880; 84100; 84484; 85025; 85610; 85730; 86331; 86635; 87040; 87081; 87400; 87502; 87811; 93005; 93225; 96365; 96366; 96367; 97163; 99285; J0696; J1650; J1956; J3475; J7030; J7040; A9270

== ENCOUNTER → 2025-01-22 | Outpatient (CLI) | payer MEDICARE, MEDICAID, SELFPAY ==
--- NOTE | 2025-01-22 15:02 | XR_ITS ---
Examination: PA lateral chest 2 views TECHNIQUE: Upright PA lateral chest 2 views Exam date and time: 2024 at 1514 hours Comparison December 03, 2024 INDICATIONS: Shortness of breath beginning 3 days ago. FINDINGS: Minor prominence left ventricle Severe bilateral lung opacity Moderate osteopenia IMPRESSION: Severe bilateral lung opacity, differential would include pneumonia superimposed upon pulmonary fibrosis
== END | disposition home or self-care (01) ==
PROVIDERS: PCP Nurse Practitioner Family; Referring Provider Nurse Practitioner Family; Visit Provider Nurse Practitioner Family
DX: R91.8 Other nonspecific abnormal finding of lung field (principal); J84.10 Pulmonary fibrosis, unspecified
CPT/HCPCS: 71046

== ENCOUNTER 2025-01-23 08:13 | Inpatient (IN) | payer MEDICARE, MEDICAID, SELFPAY ==
[2025-01-23] VITALS (14 sets, daily range): BP systolic 94–146; BP diastolic 57–92; PULSE 66–91; RESP 16–25; TEMP 35.9–36.6; O2SAT 92–100; BMI 19.1; BMI 19.5
--- NOTE | 2025-01-23 08:48 | EKG_ITS ---
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: : 1940 Requested By: Max Greenberg Order Number: [id number] Reading MD: Max Greenberg Measurements Intervals [place] Rate: 66 P: 46 [place]: 156 QRS: -30 QRSD: 102 T: 202 QT: 387 QTc: 406 Interpretive Statements SINUS RHYTHM BORDERLINE LEFT AXIS DEVIATION [QRS AXIS < -20] LEFT VENTRICULAR HYPERTROPHY AND ST-T CHANGE [VOLTAGE CRITERIA PLUS ST/T ABNORMALITY] Compared to ECG 12/03/2024 12:31:41 Left ventricular hypertrophy now present ST (T wave) deviation now present Ventricular premature complex(es) no longer present Left anterior fascicular block no longer present Myocardial infarct finding no longer present /store/S0/[id number].pdf
--- NOTE | 2025-01-23 08:48 | PD.EDADULT ---
ED General RME/HPI General Chief complaint: Syncope / Near Syncope Stated complaint: SYNCOPE Time Seen by Provider: 01/23/25 08:47 Arrival date/time: 01/23/25 08:13 RME / HPI RME / HPI narrative: Patient is a 84-year-old lady who was found on the floor at her house EMS was called and found her O2 sats to be in the 80s to 85 range on room air. Her mental status was decreased evidently she has some kind of chronic pain or anxiety issues. Patient reports falling. Her mental status was increased as soon after EMS stimulated her and where fire was on scene and stimulate her. Evidently O2 sats came up into the mid 90s with stimulation but they placed her on 4 L and her O2 sats are 95 to 96% patient denies any other acute problem. She does states she has back pain and cannot really communicate is worse or base of the same is baseline Related Data Home Medications ?Medication ?Instructions ?Recorded ?Confirmed simvastatin 20 mg tablet 1 tab PO HS ##0 10/22/13 12/04/24 famotidine 20 mg tablet 20 mg PO QDAY 12/04/24 12/04/24 hydrocodone 7.5 mg-acetaminophen 1 tab PO BID PRN Pain 12/04/24 12/04/24 300 mg tablet lorazepam 0.5 mg tablet 0.5 mg PO BID PRN Anxiety 12/04/24 12/04/24 Previous Rx's ?Medication ?Instructions ?Recorded lisinopril 2.5 mg tablet 2.5 mg PO QDAY #30 tabs 12/06/24 sennosides 8.6 mg tablet (Senna 8.6 mg PO QDAY PRN constipation 12/06/24 Lax) #30 tabs Allergies Allergy/AdvReac Type Severity Reaction Status Date / Time aspirin Allergy GI UPSET Verified 11/27/23 10:02 codeine Allergy DIFFICULTY Verified 11/27/23 10:02 BREATHING Penicillins Allergy Diarrhea Verified 11/27/23 10:02 Review of Systems Review of Systems Narrative Review of Systems: Review of Systems: Constitutional: DENIES: Fevers,; Eyes: DENIES: Loss of vision, Head/Ear/Nose: DENIES: Loss of hearing. Throat: Denies dysphagia. Cardiovascular: Denies chest pain, Dyspnea or syncope. Respiratory: DENIES: Shortness of breath, Gastrointestinal: DENIES: Rectal bleeding or melena. Genitourinary: DENIES: Dysuria (painful or difficult urination),; Musculoskeletal: See HPI for chronic back pain. DENIES: Arthralgia (pain in a joint),; Skin: DENIES: Rash,; Neurological: DENIES: loss of function or movement,; Psychiatric: DENIES: recent major life stressor, emotional problem, illicit drug use or abuse,; Endocrinology: DENIES: Weight change,; Hematologic/Lymphatic: DENIES: Abnormal bruising. Allergic/Immunologic: DENIES: Urticaria (hives), Past Medical History Past Medical History CARDIAC: Positive Hypercholesterolemia and Hypertension RESPIRATORY: Positive Asthma, Pneumonia and Sleep Apnea GENITOURINARY: Positive Renal Disease MUSCULOSKELETAL: Positive Musculoskeletal Disorders and Arthritis ENT: Positive Cataracts and Deafness PSYCHO/SOCIAL: Positive Depression and Anxiety OTHER HISTORY: Positive Chicken Pox, Measles and Mumps; Negative Blood Transfusion Reaction Family History FAMILY HISTORY: Positive Family Cardiac Disorders Surgical History SURGICAL: Positive Ear Surgery, Cochlear Implant, Abdominal Surgery, Hysterectomy and Tubal Ligation Social History SMOKING STATUS: Never smoker ED Exam Narrative Physical exam: Physical Exam: General: The vital signs were reviewed. She is got a small stature thin body habitus. Patient is ambulance bay she is peers a little sedate but arouses and answers questions appropriately with a very soft voice. Pupils are about 2 to 3 mm bilaterally. The patient is non-toxic, in no apparent distress and appears healthy with a patent airway, no respiratory distress and has no apparent circulatory problems. Head & Scalp: Normocephalic, atraumatic. Face: Appears normal and is without lesions, deformity. Ears: Left external pinna appears normal. Right external pinna appears normal. Eyes: The sclera is anicteric. No obvious photophobia. The Left and Right Orbit/Lid/Conjunctiva appears normal without swelling, discoloration or injection. Nose: The nose is without deformity, discharge or tenderness; Throat: Appears normal. The mucous membranes are pink and moist without exudates, redness or mass seen. The tongue appears normal. Neck: The neck is supple and no apparent mass or adenopathy. Chest: The chest wall is normal in size and symmetry and has no chest wall tenderness or crepitus. The patient displays normal ventilator effort without retractions, accessory muscle use and has adequate air movement bilaterally with no wheezes and no rales. Cardiovascular: Regular rate and rhythm; No murmurs, rubs, or gallops; Gastrointestinal: The abdomen appears normal. No obvious hernias or mass. The abdomen is soft and benign, non-distended, with no pain, no guarding and no rebound tenderness. Bowel sounds are present and normal sounding. No CVA tenderness. Genitourinary: Back/Spine: No obvious pain or injury. Extremities/Musculoskeletal/lymphatic: The bilateral upper and lower extremities are warm. There is no evidence of arterial insufficiency. There is no evidence of venous insufficiency/edema. The patient spontaneously moves bilateral upper and lower extremities with no pain and no limitation of movement. There is no apparent, injury or trauma. Skin: The skin is warm, dry and intact. No rashes. No petechia. No purpura. No abnormal bruising. The color is appropriate with no cyanosis. Mental status/Psychiatric: Mental status is appropriate for age. The patient has no apparent delusions, visual hallucinations, no apparent audible hallucinations. The patient has no apparent suicidal thoughts/ideation and no apparent homicidal thoughts/ideation. Neurological: The patient is awake, alert, interactive, cordial, cooperative and is oriented to name and situation. The patient follows commands and answers historical question with no impairment. There is no visual disturbance apparent. The pupils are equal and reactive bilaterally with normal eye movements and no diplopia The bilateral upper and lower extremities have normal strength, normal range of motion and normal functioning. The gait, station and balance were not tested due to acuity Course Quality Measures none Orders Category Date Time Status Patient Condition Routine Admission 01/23/25 16:14 Ordered Bedside COVID-19 Antigen Test NOW Care 01/23/25 16:11 Active Bedside Influenza A&B Antigen Test NOW Care 01/23/25 16:11 Completed EKG (ED ONLY) *Do not use* NOW Care 01/23/25 08:48 Completed Miscellaneous Nursing Order NOW Care 01/23/25 14:54 Active Miscellaneous Nursing Order NOW Care 01/23/25 16:23 Active Notify provider NEEDED Care 01/23/25 16:[address] head/brain wo con Stat Exams 01/23/25 14:[address] lumbar spine wo con Stat Exams 01/23/25 08:52 Completed EKG (ED Only) Stat Exams 01/23/25 08:48 Draft XR chest 1V portable Stat Exams 01/23/25 08:48 Completed B-Type Natriuretic Peptide Stat Lab 01/23/25 09:44 Completed Blood Culture (Lab) Stat Lab 01/23/25 09:44 Received CBC AM DRAW Lab 01/24/25 05:00 Ordered CBC AM DRAW Lab 01/25/25 05:00 Ordered CBC AM DRAW Lab 01/26/25 05:00 Ordered CBC Stat Lab 01/23/25 09:44 Completed Comprehensive Metabolic Panel AM DRAW Lab 01/24/25 05:00 Ordered Comprehensive Metabolic Panel AM DRAW Lab 01/25/25 05:00 Ordered Comprehensive Metabolic Panel AM DRAW Lab 01/26/25 05:00 Ordered Comprehensive Metabolic Panel Stat Lab 01/23/25 09:44 Completed Drug Screen,Urine Stat Lab 01/23/25 15:25 Completed Lactate (Lactic Acid) Stat Lab 01/23/25 09:44 Completed Lipase Stat Lab 01/23/25 09:44 Completed Magnesium AM DRAW Lab 01/24/25 05:00 Ordered Magnesium Stat Lab 01/23/25 09:44 Completed Phosphorous AM DRAW Lab 01/24/25 05:00 Ordered Sputum Culture and Gram Stain Stat Lab 01/23/25 16:12 Ordered Troponin I Stat Lab 01/23/25 09:44 Completed Urinalysis Stat Lab 01/23/25 15:25 Completed Urinalysis, C/S if Indicated Stat Lab 01/23/25 15:25 Completed Urine Culture Stat Lab 01/23/25 15:25 Received Venous Blood Gas Stat Lab 01/23/25 09:44 Completed Acetaminophen Tab [Tylenol Tab] Med 01/23/25 16:14 Active 650 mg PO Q6H PRN Albuterol/Ipratr Rt Lyn [Duoneb Rt Lyn] Med 01/23/25 19:00 Active 3 ml INH Q6HRRT Azithromycin Inj [Zithromax Inj] 500 mg Med 01/23/25 14:54 Discontinued Sodium Chloride 0.9% 250 ml [Ns] 250 ml IV QDAY Azithromycin Inj [Zithromax Inj] 500 mg Med 01/24/25 09:00 Pending Sodium Chloride 0.9% 250 ml [Ns] 250 ml IV QDAY Azithromycin Inj [Zithromax Inj] 500 mg Med 01/23/25 15:00 Discontinued Sodium Chloride 0.9% 250 ml [Ns] 250 ml IV X1 Enoxaparin [Lovenox] Med 01/24/25 09:00 Active 40 mg SC QDAY Ondansetron Inj [Zofran Inj] Med 01/23/25 16:14 Active 4 mg IV Q6H PRN Polyeth Glycol/Propylene Glyco [Miralax Pkt] Med 01/23/25 16:30 Active 17 gm PO QDAY Senna [Senokot] Med 01/23/25 16:30 Active 1 tab PO QDAY Sodium Chloride Rt Lyn 10% [NS Rt Lyn 10%] Med 01/23/25 16:12 Discontinued 5 ml INH X1 ONE cefTRIAXone [Rocephin] 1,000 mg Med 01/24/25 09:00 Active SODIUM CHLORIDE 0.9% (Popper) [Ns 0.9% (P)] 50 ml IV QDAY cefTRIAXone [Rocephin] 1,000 mg Med 01/23/25 14:54 Discontinued SODIUM CHLORIDE 0.9% (Popper) [Ns 0.9% (P)] 50 ml IV X1 oxyCODONE/APAP 5/325 [Percocet 5/325] Med 01/23/25 16:14 Active 1 tab PO Q6H PRN Code Status Routine Oth 01/23/25 16:14 Ordered Oxygen Delivery PRN RT 01/23/25 16:14 Active Sputum Induction PRN RT 01/23/25 16:15 Ordered Vital Signs Vital signs: Vital Signs Temperature 96.9 F 01/23/25 08:20 Pulse Rate 84 01/23/25 08:20 Respiratory Rate 17 01/23/25 08:20 Blood Pressure 121/76 01/23/25 08:20 Pulse Oximetry (%) 95 01/23/25 08:20 Oxygen Delivery Method Room Air 01/23/25 08:20 Pulse ox is 95% on room air which is adequate. [facility] Patient data External records reviewed:: [facility] previous records (I reviewed admission from 12/03/24 through 12/06/24) and EMS form Clinical information provided by:: patient and EMS Social determinants that could affect healthcare access:: none Patient has the following chronic illnesses:: COPD How is presenting disease/condition affected by chronic disease/condition?: exacerbated by Evaluation data The following diagnostics were reviewed and interpreted by me:: lab results, radiology exam(s) and EKG tracing(s) Lab and/or radiology exams considered but not ordered:: none Interpretation Summary: Ordering Physician: Max Greenberg MD Date of Service: 01/23/25 Procedure(s): XR chest 1V portable Accession Number(s): [id number] cc: Eunice Monroy PA-C ([employer]); Max Greenberg MD; Sage Sorto MD~ Examination: AP chest single view TECHNIQUE: AP portable semiupright chest single view Exam date and time: January 23, 2025 at 0902 hours INDICATIONS: Onset chest pain today FINDINGS: Again noted extensive interstitial disease throughout the lungs compared with January 22, 2025 No significant cardiac enlargement Ectatic thoracic aorta Prominent osteopenia IMPRESSION: Again noted severe bilateral lung opacity, differential would include pneumonia superimposed upon pulmonary fibrosis Dictated By: Sage Sorto MD Signed By: <Electronically signed by Sage Sorto MD in OV> 01/23/25 1028 Ordering Physician: Max Greenberg MD Date of Service: 01/23/25 Procedure(s): CT lumbar spine wo con Accession Number(s): [id number] cc: Eunice Monroy PA-C ([employer]); Max Greenberg MD; Sage Sorto MD~ Examination: CT lumbar spine, without contrast. 2-D sagittal reconstructions. 2-D coronal reconstructions. 3-D reconstructions. Date and time of exam:January 23, 2025 0913 hours INDICATIONS: Patient fell today with injury to lower back, lower back pain CTDI: vol (mGy):14.6 * DLP: (mGycm): 144 Technique: Multiple 1.25 mm axial sections of the lumbar spine have been obtained. 2-D sagittal and coronal reconstructions have been obtained. 3-D reconstructions have been obtained. Low dose protocols were performed. One or more of the following dose reduction techniques were used; automated exposure control, adjustment of the mA and/or KV according to patient size, use of iterative reconstruction technique. Findings: Severe osteopenia No lumbar vertebral body compression fracture Grade 1 anterolisthesis L4 on L5, L5 on S1, L3 on L2 Lumbar pedicles, laminae, transverse and posterior spinous processes intact L5-S1 4 mm central lumbar disc bulge extending to the left foraminal region with mild left L5 ganglionic compression L4-L5 severe overall spinal stenosis, axial image 90, 6 mm central lumbar disc bulge, facet arthropathy and thickening of ligamenta flava L3-L4 no disc protrusion L2-L3 no disc protrusion L1-L2 no disc protrusion IMPRESSION: No acute lumbar fracture L5-S1 4 mm central lumbar disc bulge with mild left L5 ganglionic compression L4-L5 severe overall spinal stenosis Dictated By: Saeg Sorto MD Signed By: <Electronically signed by Sage Sorto MD in OV> 01/23/25 1108 Medications Medications considered but not ordered:: none Medication administrations:: Medication Administration History Acetaminophen (Acetaminophen 325 Mg Tablet) 650 mg PO Q6H PRN PRN Reason: Fever >100.3 or pain 1-3 Stop: 02/22/25 16:13 Albuterol/Ipratropium (Albuterol/Ipratropium (Duoneb) Rt Lyn 3 Ml Nebu) 3 ml INH Q6HRRT TOYA Stop: 02/22/25 18:59 Enoxaparin Sodium (Enoxaparin Sod Inj 40 Mg/0.4 Ml Syringe) 40 mg SC QDAY TOYA Stop: 02/07/25 08:59 Ceftriaxone Sodium 1,000 mg/ (Sodium Chloride) 50 mls @ 100 mls/hr IV QDAY TYOA Stop: 01/31/25 08:59 Azithromycin 500 mg/ Sodium (Chloride) 250 mls @ 250 mls/hr IV QDAY TOYA Stop: 01/31/25 08:59 Magnesium Sulfate (Magnesium Sulfate Ivpb) 4 gm in 50 mls @ 12.5 mls/hr IV X1 ONE Stop: 01/23/25 20:37 Ondansetron HCl (Ondansetron Inj 2 Mg/Ml Inj 2 Ml) 4 mg IV Q6H PRN; Protocol PRN Reason: NAUSEA OR VOMITING Stop: 02/22/25 16:13 Oxycodone/Acetaminophen (Oxycodone/Apap 5/325 Tablet) 1 tab PO Q6H PRN PRN Reason: PAIN SCALE 4-10(Mod-Sev Stop: 01/28/25 16:13 Polyethylene Glycol (Polyethylene Glycol 17 Gm Packet) 17 gm PO QDAY TOYA Stop: 02/22/25 16:29 Sennosides (Senna Tablet) 1 tab PO QDAY TOYA; Protocol Stop: 02/22/25 16:29 Discontinued Medications Ceftriaxone Sodium 1,000 mg/ (Sodium Chloride) 50 mls @ 100 mls/hr IV X1 ONE Stop: 01/23/25 15:23 Last Infusion: 01/23/25 16:29 Dose: Infused Documented By: Admin: 01/23/25 15:51 Dose: 100 mls/hr Documented By: FRANCK Azithromycin 500 mg/ Sodium (Chloride) 250 mls @ 250 mls/hr IV QDAY TOYA Stop: 01/30/25 14:53 Last Admin: 01/23/25 16:31 Dose: Not Given Documented By: FRANCK Non-Admin Reason: Cancelled by Provider Azithromycin 500 mg/ Sodium (Chloride) 250 mls @ 250 mls/hr IV X1 ONE Stop: 01/23/25 15:59 Last Infusion: 01/23/25 17:32 Dose: Infused Documented By: Admin: 01/23/25 16:31 Dose: 250 mls/hr Documented By: FRANCK Sodium Chloride (Sodium Chloride Rt 10% 15 Ml Nebu) 5 ml INH X1 ONE Stop: 01/23/25 16:13 see above Consultations Consultation(s) initiated? (list below): Yes Diagnosis Differential Diagnosis ED Complaint MDM: syncope, CHF, COPD exacerbation, pneumonia, viral illness Most likely diagnosis given after review of the tests above:: Probably occult pneumonia buried in th interstitial lung disease. Admission Indicated Admission indicated?: indicated Explain why admission is indicated or not indicated:: Weak unsafe cannot walk worsening from baseline probably due to pneumonia as her hypoxemia is worse with minimal exertion. Admission Request Was there a request for admission?: Yes Admission Attestation Admission request attestation: Discussed case with [] from Hospitalist service regarding admission. Discussed patients ED course, exam findings, labs, and radiology results. The Hospitalist [agrees,declines] to accept the patient for admission. Disposition Plan Disposition Plan: Admit Medical Decision Making MDM Narrative MDM Narrative: Patient is found down on the ground in the setting of took her [place] and lorazepam earlier this morning and is uncertain if she actually had a syncopal event is too weak and fell or oversedated and fell but will do a medical workup and observe her. She seems to be maintaining her O2 sats at this time and has no other obvious acute problem. Unclear if her back pain is actually worse her baseline. I sat her up on the gurney and she did not moan or complaint of pain as I did at. This time or just going to watch Went back and reevaluated this patient according to the daughter who is now present states she has been getting increasingly weak over the last week and a half. There is been no documented fever. She also noticed some increased cognitive decline. Medical workup today reveals a chest x-ray which has bilateral interstitial abnormalities with a patch in the right mid upper lung field which is actually better than previous x-rays and worse than others is unclear if this represents acute or chronic. Urine is still has not been collected at 1450 hrs. The nurse was asked to collect the cath specimen soon as possible. Medical workup reveals a white count 9.4 hemoglobin of 12.4 platelet count of 176,000 with 83% segs. The pH is 7.39 pCO2 slight elevated 69 probably chronically elevated due to her bronchiectasis and/or interstitial lung disease. Sodium 140 potassium 4.2 chloride 95 CO2 is greater than 40. BUN 12 creatinine 0.6 lactic acid and back at 1.2 magnesium is a little low at 1.5. BNP is [address] reveals no acute fracture chest x-ray is as mentioned above. On reevaluation the patient patient appears to be comfortable. Daughter states she is still quite weak and not back to her usual self. Because of this we attempted to try to stand and walk her as usually she can walk with a walker without any assistance as long she has continuous oxygen in place. With her oxygen in place we tried to stand at the side of the bed and she immediately saturated into upper 80s and was wobbly and unsafe to take any steps. Notes her oxygenation was 95 6% when she was lying still. Patient clearly desaturates with minimal exertion and has bad lungs presume he could have increased pneumonia that cannot be visualized. Will start the Rocephin and azithromycin. Urine is to be collected also I contacted the hospitalist resident Dr. Carballo who will be admitting this patient. Differential Diagnosis Differential Diagnosis: syncope, CHF, COPD exacerbation, pneumonia, viral illness Lab Data 01/23/25 09:44 01/23/25 09:44 Labs: Lab Results 01/23/25 01/23/25 Range/Units 09:44 15:25 WBC 9.4 (3.6-11.0) Thou/mm3 RBC 3.84 L (4.00-5.20) Miln/mm3 Hgb 12.4 (12.0-16.0) g/dL Hct 38.9 (36.0-46.0) % MCV 101 H (80-100) fL MCH 32.3 (25.0-35.0) pg MCHC 31.9 (31.0-37.0) g/dl RDW Std Deviation 44.8 (36.4-46.3) fL Plt Count 176 (140-440) Thou/mm3 Neut % (Auto) 83 H (37-80) % Lymph % (Auto) 8 L (10-50) % [place] % (Auto) 7 (0-12) % Eos % (Auto) 2 (0-10) % Baso % (Auto) 0 (0-2.5) % Neut # (Auto) 7.7 (1.8-7.7) Thou/mm3 Lymph # (Auto) 0.8 L (1.0-4.8) Thou/mm3 [place] # (Auto) 0.7 (0.0-0.8) Thou/mm3 Eos # (Auto) 0.1 (0.0-0.5) Thou/mm3 Baso # (Auto) 0.0 (0.0-0.2) Thou/mm3 Immature Gran # (Auto) 0.02 H (0.00-0.00) Thou/mm3 Absolute Nucleated RBC 0.00 (0.00-0.00) Thou/mm3 Immature Gran % 0 (0-0) % Nucleated RBC % 0 (0) /100 WBC VBG pH 7.39 (7.33-7.66) VBG pCO2 69 H (36-56) mmHg VBG pO2 33 (15-58) mmHg VBG O2 Sat (Sherine) 67 L (96-97) % VBG Base Excess 14 H (-3-3) Sodium 140 (136-145) mMol/L Potassium 4.2 (3.4-5.1) mMol/L Chloride 95 L (98-107) mMol/L Carbon Dioxide > 40.0 H (20.0-31.0) mMol/L Anion Gap 5 L (7-16) BUN 12 (9-23) mg/dL Creatinine 0.6 (0.6-1.3) mg/dL Estim Creat Clear Calc 50.5 L (>60) mL/min eGFR > 60 (60 - ) See Note BUN/Creatinine Ratio 20 (12-20) Ratio Glucose 103 (74-106) mg/dL Calculated Osmolality 279 (275-295) Lactic Acid 1.2 (0.4-2.0) mMol/L Calcium 10.5 (8.3-10.6) mg/dL Corrected Calcium 10.5 H (8.5-10.1) mg/dL Magnesium 1.5 L (1.6-2.6) mg/dL Total Bilirubin 0.7 (0.3-1.2) mg/dL AST 26 (0-34) U/L ALT 7 L (10-49) U/L Alkaline Phosphatase 62 (46-116) U/L Troponin I 0.021 (0.0-0.045) ng/mL B-Natriuretic Peptide 148 H (0-100) pg/mL Total Protein 7.1 (5.7-8.2) gm/dL Albumin 4.0 (3.4-4.8) gm/dL Globulin 3.1 (2.3-3.5) gm/dL Albumin/Globulin Ratio 1.3 (1.2-2.2) Lipase 25 (12-53) U/L Ur Collection Type Clean Catch Urine Color Yellow (Lt Yel-Yel) Urine Clarity Turbid A (Clear/Hazy) Urine pH 7.0 (5.0-7.0) Ur Specific [place] 1.013 (1.001-1.035) Urine Protein Trace (Neg - Trace) Urine Glucose (UA) Negative (Negative) Urine Ketones Trace (Negative) Urine Blood Negative (Negative) Urine Nitrite Negative (Negative) Urine Bilirubin Negative (Negative) Urine Urobilinogen (Auto) 4.0 (0.0-1.0) mg/dL Ur Leukocyte Esterase Positive (Negative) Urine RBC 3 (0-3) /hpf Urine WBC 2 (0-5) /hpf Ur Squamous Epith Cells < 1 (0-5) /hpf Ur Transition Epith Cell < 1 (0-5) /hpf Urine Bacteria 2+ A (None) Ur Culture Indicated? Yes Urine Opiates Screen Positive A (Negative) Urine Fentanyl Screen Negative (Negative) Ur Barbiturates Screen Negative (Negative) U Amphetamin/Meth Scrn Negative (Negative) U Benzodiazepines Scrn Negative (Negative) U Cocaine Metab Screen Negative (Negative) U Marijuana (THC) Screen Positive A (Negative) Discharge Plan Plan Patient Disposition: Admit Acute Care w/in Hospital Disposition Comment: Hospitalist to admit Problem List Clinical Impression: Pneumonia, Weakness, Unable to ambulate, Hypoxemia, Interstitial lung disease
--- NOTE | 2025-01-23 08:52 | XR_ITS ---
Examination: CT lumbar spine, without contrast. 2-D sagittal reconstructions. 2-D coronal reconstructions. 3-D reconstructions. Date and time of exam:January 23, 2025 0913 hours INDICATIONS: Patient fell today with injury to lower back, lower back pain CTDI: vol (mGy):14.6 * DLP: (mGycm): 144 Technique: Multiple 1.25 mm axial sections of the lumbar spine have been obtained. 2-D sagittal and coronal reconstructions have been obtained. 3-D reconstructions have been obtained. Low dose protocols were performed. One or more of the following dose reduction techniques were used; automated exposure control, adjustment of the mA and/or KV according to patient size, use of iterative reconstruction technique. Findings: Severe osteopenia No lumbar vertebral body compression fracture Grade 1 anterolisthesis L4 on L5, L5 on S1, L3 on L2 Lumbar pedicles, laminae, transverse and posterior spinous processes intact L5-S1 4 mm central lumbar disc bulge extending to the left foraminal region with mild left L5 ganglionic compression L4-L5 severe overall spinal stenosis, axial image 90, 6 mm central lumbar disc bulge, facet arthropathy and thickening of ligamenta flava L3-L4 no disc protrusion L2-L3 no disc protrusion L1-L2 no disc protrusion IMPRESSION: No acute lumbar fracture L5-S1 4 mm central lumbar disc bulge with mild left L5 ganglionic compression L4-L5 severe overall spinal stenosis
[2025-01-23 09:59] LABS: Base Excess, Venous 14 (-3-3); Lactate (Lactic Acid) 1.2 mMol/L (0.4-2.0); O2 Saturation, Venous 67 % (96-97); PCO2, Venous 69 mmHg (36-56); PO2, Venous 33 mmHg (15-58); pH, Venous 7.39 (7.33-7.66)
[2025-01-23 10:04] LABS: Basophils % (Auto) 0 % (0-2.5); Eosinophils # (Auto) 0.1 Thou/mm3 (0.0-0.5); Eosinophils % (Auto) 2 % (0-10); Hematocrit 38.9 % (36.0-46.0); Hemoglobin 12.4 g/dL (12.0-16.0); Immature Granulocytes % (Auto) 0 % (0-0); Immature Granulocytes Auto 0.02 Thou/mm3 (0.00-0.00); Lymphocytes # (Auto) 0.8 Thou/mm3 (1.0-4.8); Lymphocytes % (Auto) 8 % (10-50); Mean Corpuscular HGB Conc 31.9 g/dl (31.0-37.0); Mean Corpuscular Hemoglobin 32.3 pg (25.0-35.0); Mean Corpuscular Volume 101 fL (80-100); Monocytes # (Auto) 0.7 Thou/mm3 (0.0-0.8); Monocytes % (Auto) 7 % (0-12); Neutrophils # (Auto) 7.7 Thou/mm3 (1.8-7.7); Neutrophils % (Auto) 83 % (37-80); Nucleated Red Blood Cell % 0 /100 WBC (0); Platelet Count 176 Thou/mm3 (140-440); RDW Standard Deviation 44.8 fL (36.4-46.3); Red Blood Count 3.84 Miln/mm3 (4.00-5.20); White Blood Count 9.4 Thou/mm3 (3.6-11.0)
[2025-01-23 10:21] LABS: B-Type Natriuretic Peptide 148 pg/mL (0-100)
[2025-01-23 10:33] LABS: Alanine Aminotransferase 7 U/L (10-49); Albumin/Globulin Ratio 1.3 (1.2-2.2); Alkaline Phosphatase 62 U/L (46-116); Anion Gap 5 (7-16); Aspartate Amino Transferase 26 U/L (0-34); BUN/Creatinine Ratio 20 Ratio (12-20); Bilirubin,Total 0.7 mg/dL (0.3-1.2); Blood Urea Nitrogen 12 mg/dL (9-23); Calcium 10.5 mg/dL (8.3-10.6); Calcium (Corrected) 10.5 mg/dL (8.5-10.1); Carbon Dioxide > 40.0 mMol/L (20.0-31.0); Chloride 95 mMol/L (98-107); Creatinine (Component) 0.6 mg/dL (0.6-1.3); Estimated Creatinine Clearance 50.5 mL/min (>60); Globulin 3.1 gm/dL (2.3-3.5); Glucose 103 mg/dL (74-106); Lipase 25 U/L (12-53); Magnesium 1.5 mg/dL (1.6-2.6); Osmolality,Calculated 279 (275-295); Potassium 4.2 mMol/L (3.4-5.1); Sodium 140 mMol/L (136-145); Total Protein 7.1 gm/dL (5.7-8.2); Troponin I 0.021 ng/mL (0.0-0.045); eGFR > 60 See Note
--- NOTE | 2025-01-23 14:52 | XR_ITS ---
Examination: CT brain head without contrast. 2-D sagittal coronal reconstructions Date and time of exam:January 23, 2025 1506 hours INDICATIONS: Patient fell today with injury to the head, head pain CTDI: vol (mGy):45.4 DLP: (mGycm):842 Technique: Multiple CT axial sections of the brain have been obtained, 5 mm slice thickness. Contrast has not been administered. 2-D sagittal, coronal reconstructions have been obtained Low dose protocols were performed. One or more of the following dose reduction techniques were used; automated exposure control, adjustment of the mA and/or KV according to patient size, use of iterative reconstruction technique. Findings: No significant ventricular enlargement. Intra-axial or extra-axial hemorrhage density is not seen. No mass effect or midline shift Basal cisterns are not remarkable. Fourth ventricle is midline. Cranial vault intact. Instrumentation or opacity projects in the left posterior temporal parietal bone Impression: Negative for acute hemorrhage, mass effect or midline shift 17 mm opacity projects partly within the posterior left temporal parietal bone
[2025-01-23 15:41] LABS: Collection Type, Urine Clean Catch
[2025-01-23] MEDS: cefTRIAXone 1,000 MG in SODIUM CHLORIDE 0.9% (Popper) 50 ML 100 MG IV (15:51)
--- NOTE | 2025-01-23 15:53 | ESHP_ITS ---
<Statement entered by Tiffany Spencer MD - 01/23/25 22:41> Patient was seen and examined by me personally. I have directly supervised and reviewed documentation by the team resident and agree with its findings with any exceptions or additional findings as below. Plan of care was discussed with the attending, Dr. Hendrickson. New admission today. Patient is a 84-year-old female with a past medical history of COPD on 2.5-3L home O2, pulmonary fibrosis, hypertension, and hyperlipidemia who was brought to the ED due to unwitnessed ground-level fall, possible syncopal event. Patient is asleep but arousable to voice, oriented x3, hard-of hearing. Patient's daughter is at bedside to assist in providing history. Patient apparently was found down on the floor by son who lives with her. EMS was called and patient was found saturating 85% on room air. Uncertain mechanism of action of fall and uncertain if there was hit to head. Denies blood thinner use. Patient does have a history of pulmonary fibrosis diagnosed by pulmonology Dr. Taveras. Patient has an inhaler she takes at home 4 times daily. She has never smoked. ED workup revealed CXR showing diffuse bilateral opacity, seen on previous CXRs but worse this time, possible superimposed pneumonia on pulmonary fibrosis. There is no leukocytosis or fever. Labs showing >40 bicarb, and VBG showed pCO2 69, possibly indicative of acute on chronic CO2 retention. Patient was unable to stand when undergoing walk test in ED and also desturated to the 80s on oxygen upon movement. Therefore patient was admitted for acute on chronic hypoxic and hypercapneic respiratory failure secondary to community acquired pneumonia/COPD exacerbation as well as syncope workup. COVID, flu were negative. Cultures, MRSA screen, procal will be obtained. Started IV ceftriaxone and azithromycin as well as DuoNebs. Supplemental oxygen given and wean as tolerated. Tiffany Spencer, PGY-2 Documentation for date of: 01/23/25 HPI History of Present Illness Chief complaint: ground level fall, altered mental status History of present illness: The patient is a 84-year-old female with a previous medical history of COPD on 2 L home oxygen, hypertension, hyperlipidemia who was brought to the ED due to ground-level fall. Her daughter at the bedside, according to her patient lives with her son and she lives next-door. She was found on the floor in the morning and there was no witnesses to the fall. She also reported that she has taken lorazepam in the morning. She reported she had an admission for pneumonia a few months ago and she was discharged to the SNF. She was discharged from SNF in November and she reports her condition has improved. But she reports that starting a few weeks ago her mother started to become confused closer to nighttime. She denies any sick contacts, fever or chills. In the ED she was hemodynamically stable, afebrile, saturating well on 3 L nasal cannula. She was unable to stand and desaturated when moving. Labs showed high bicarb, normal anion gap. No leukocytosis. EKG showed sinus rhythm. Chest x-ray showed pneumonia superimposed on pulmonary fibrosis. Lumbar spine CT was negative for acute lumbar fracture. Head CT was negative for acute hemorrhage mass effect or midline shift. There was 17 mm opacity projection, most likely artifact, head on examination intact. Patient was started on ceftriaxone and azithromycin. Patient is being admitted for acute on chronic hypoxic respiratory failure secondary to pneumonia. Social history: Lives with his son, never smoker, does not drink alcohol. Med rec is pending Review of Systems Review of Systems Narrative Review of Systems: General: Denies weight loss, fever and chills. HEENT: Denies changes in vision and hearing. Resp: Denies SOB, cough and wheezing. CVS: Denies palpitations and CP. GI: Denies abdominal pain, nausea, vomiting and diarrhea. : Denies dysuria and urinary frequency. MSK: Denies myalgia and joint pain. Denies rash and pruritus. Neuro: Denies headache and syncope. Psych: Denies recent changes in mood. Denies anxiety and depression. Exam Vital Signs Temp Pulse Resp BP Pulse Ox O2 Del Method O2 Flow Rate 97.7 F 86 18 110/57 L 100 Nasal Cannula 3 01/23/25 15:50 01/23/25 15:50 01/23/25 15:50 01/23/25 15:50 01/23/25 15:50 01/23/25 15:50 01/23/25 15:50 Narrative Exam Physical Exam General: Awake and in no acute distress. slighly somnolent. easily aroused. HEENT: Normocephalic, atraumatic, mucous membranes moist. Heart: Regular rate and rhythm, no murmurs. Lungs: Bilateral diffuse crackles. Abdomen: Soft, nondistended, mild diffuse tenderness, positive bowel sounds. ?No guarding or rebound tenderness. Neurologic: Alert and oriented x3, no gross neurological deficit, and patient able to move all 4 extremities. Extremities: No edema. Skin: No rash or ecchymoses. Results: Labs 01/24/25 04:56 01/24/25 04:56 Labs: Short CBC 01/23/25 Range/Units 09:44 WBC 9.4 (3.6-11.0) Thou/mm3 Hgb 12.4 (12.0-16.0) g/dL Hct 38.9 (36.0-46.0) % Plt Count 176 (140-440) Thou/mm3 BMP 01/23/25 09:44 Sodium 140 Potassium 4.2 Chloride 95 L Carbon Dioxide > 40.0 H BUN 12 Creatinine 0.6 Glucose 103 Calcium 10.5 Cardiac Enzymes 01/23/25 Range/Units 09:44 Troponin I 0.021 (0.0-0.045) ng/mL Liver Function 01/23/25 Range/Units 09:44 Total Bilirubin 0.7 (0.3-1.2) mg/dL AST 26 (0-34) U/L ALT 7 L (10-49) U/L Alkaline Phosphatase 62 (46-116) U/L Albumin 4.0 (3.4-4.8) gm/dL ABG Interpretation ABG results: 01/23/25 09:44 VBG pH 7.39 VBG pCO2 69 H VBG pO2 33 VBG Base Excess 14 H Quality Measures Quality Measures VTE prophylaxis Advance care planning discussed with:: child Medications Home Medications and Allergies Home Medications ?Medication ?Instructions ?Recorded ?Confirmed ?Type simvastatin 20 mg tablet 1 tab PO HS ##0 10/22/13 History famotidine 20 mg tablet 20 mg PO QDAY 12/04/2412/04 History hydrocodone 7.5 mg-acetaminophen 1 tab PO BID PRN Pain 12/04/24 01/24/25 History 300 mg tablet lorazepam 0.5 mg tablet 0.5 mg PO BID PRN Anxiety 01/24/25 History dronabinol 2.5 mg capsule 2.5 mg PO QDAY PRN owner s 01/24/25 01/24/25 History syndrome Allergies Allergy/AdvReac Type Severity Reaction Status Date / Time aspirin Allergy GI UPSET Verified 11/27/23 10:02 codeine Allergy DIFFICULTY Verified 11/27/23 10:02 BREATHING Penicillins Allergy Diarrhea Verified 11/27/23 10:02 Visit Medications Azithromycin 500 mg/ Sodium (Chloride) 250 mls @ 250 mls/hr IV QDAY TOYA Stop: 01/30/25 14:53 Azithromycin 500 mg/ Sodium (Chloride) 250 mls @ 250 mls/hr IV X1 ONE Stop: 01/23/25 15:59 Discontinued Medications Ceftriaxone Sodium 1,000 mg/ (Sodium Chloride) 50 mls @ 100 mls/hr IV X1 ONE Stop: 01/23/25 15:23 Last Admin: 01/23/25 15:51 Dose: 100 mls/hr Assessment & Plan Plan The patient is a 84-year-old female with a previous medical history of COPD on 2 L home oxygen, hypertension, hyperlipidemia who was brought to the ED due to ground-level fall. Patient was being admitted for acute on chronic hypoxic respiratory failure secondary to pneumonia. #Acute on chronic hypoxic respiratory failure #Community-acquired pneumonia #History of COPD Patient has a history of COPD, does not have history of smoking. Follows up with [facility] and is using oxygen at home. In the ED her oxygen demands are increased and she desats while moving. Chest x-ray showed pneumonia superimposed on pulmonary fibrosis. Patient has an elevated pCO2 on VBGs and high bicarbonate. Plan: ? Ceftriaxone 1 g daily 01/23?current ? Azithromycin 500 daily 01/23?current - Repeat VBG ? Blood cultures pending ?Sputum cultures ordered ? 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 There was no witness to the fall and it is unknown if she had a loss of consciousness. CT negative for acute changes, showed opacity artifact. In the ED, she was AOx3, but patient's family reported that she started to become confused in the evenings a few weeks ago. They also reported that she is taking lorazepam for anxiety. Infection possibly is one of the reason for confusion. Plan: ? Frequent reorientation ? Family visiting ? Lorazepam on hold for now ? Will try to avoid Beers criteria medications - orthostatic vitals - Echo doppler #Hypomagnesemia Plan: - Magnesium 4 gm IV once #Constipation Plan: - miralax 1 pkt daily - senna 1 tab daily #History of hypertension #Hyperlipidemia Will hold home blood pressure medications for now due to normal blood pressure. Med rec is pending. Health maintenance: FEN: cardiac DVT prophylaxis: lovenox sc GI prophylaxis: Dispo: med tele CODE STATUS: DNR Plan of care discussed with attending Dr. Hendrickson, PGY-[address] Spencer and PGY-[address] White. Nalini Mccormick MD, PGY 1. Attending Provider Attestation/Addendum I have examined the patient, reviewed labs and imaging findings, discussed the case with the resident(s), and reviewed entered orders. I agree with the plan of care as outlined in this note, with these additional summaries/recommendations: Patient is a 84-year-old female with a medical history of pulmonary fibrosis, COPD, chronic respiratory failure on 2.5 to 3 L home O2, primary hypertension, and hyperlipidemia who presented to [facility] emergency department on 01/23/2025 after a ground-level fall which was unwitnessed and suspected syncopal episode and thus hospitalist team consulted for continuation of care. Patient seen at bedside. No acute overnight events. Patient appears around her baseline mental status today. Patient was admitted for acute on chronic hypoxic respiratory failure in the setting of bacterial pneumonia and severe underlying pulmonary fibrosis/COPD. Will continue IV antibiotics and cultures pending. Continue breathing treatments. Patient only requiring minimal nasal cannula at this time and we will continue to monitor. Patient also had an unwitnessed fall admission suspect possible syncopal episode and thus pending echocardiogram, orthostatic vitals and EKG reviewed. Patient noted to be taking benzodiazepine which we recommend be discontinued and tapered. Patient endorses constipation and will give laxatives. Replace electrolytes as needed. Repeat hematology and chemistry panel in AM. Dr. Emeka MD
[2025-01-23 16:03] LABS: Bacteria,Urine 2+; Bilirubin,Urine Negative (Negative); Blood,Urine Negative (Negative); Clarity,Urine Turbid (Clear/Hazy); Color,Urine Yellow (Lt Yel-Yel); Glucose, Urine Negative (Negative); Ketones,Urine Trace (Negative); Leukocyte Esterase,Urine Positive (Negative); Nitrite,Urine Negative (Negative); Protein,Urine Trace (Neg - Trace); RBC,Urine 3 /hpf (0-3); Specific Gravity,Urine 1.013 (1.001-1.035); Squamous Epithelial Cell,Urine < 1 /hpf (0-5); Transitional Epi Cells,Urine < 1 /hpf (0-5); WBC,Urine 2 /hpf (0-5)
[2025-01-23 16:09] LABS: Culture Indicated,Urine Yes
[2025-01-23 16:10] LABS: Amphetamine/Methamp Scrn,U Negative (Negative); Barbiturate Screen,Urine Negative (Negative); Benzodiazepines Screen,Urine Negative (Negative); Benzoylecgonine Screen, Ur Negative (Negative); Fentanyl Screen,Urine Negative (Negative); Opiate Screen,Urine Positive (Negative); THC Screen,Urine Positive (Negative)
[2025-01-23] MEDS: AZITHROMYCIN INJ 500 MG in SODIUM CHLORIDE 0.9% 250 ML 250 ML 250 MG IV (16:31)
[2025-01-23 18:25] LABS: Base Excess, Venous 13 (-3-3); O2 Saturation, Venous 75 % (96-97); PCO2, Venous 81 mmHg (36-56); PO2, Venous 41 mmHg (15-58); pH, Venous 7.33 (7.33-7.66)
[2025-01-23] MEDS: POLYETHYLENE GLYCOL 17 GM PACKET PO (18:32)
[2025-01-23] MEDS: Magnesium Sulfate 4 GM Ivpb 4 GM/50 ML BAG IV (18:32)
[2025-01-23] MEDS: SENNA TABLET 1 TAB PO (18:32)
--- NOTE | 2025-01-23 19:00 | PC.NURSE ---
Patient arrived in med surg unit aroun 17:55 PM via gurney. Assisted patient to bed. Provided safety and comfort.
[2025-01-23] MEDS: ALBUTEROL/IPRATROPIUM (Duoneb) RT SOL 3 ML NEBU INH (19:47)
[2025-01-24] VITALS (11 sets, daily range): BP systolic 116–137; BP diastolic 65–79; PULSE 71–97; RESP 16–20; TEMP 35.9–36.6; O2SAT 95–100
[2025-01-24] MEDS: ALBUTEROL/IPRATROPIUM (Duoneb) RT SOL 3 ML NEBU INH ×4 (02:13→19:35)
[2025-01-24 05:43] LABS: Basophils % (Auto) 0 % (0-2.5); Eosinophils # (Auto) 0.1 Thou/mm3 (0.0-0.5); Eosinophils % (Auto) 1 % (0-10); Hematocrit 36.2 % (36.0-46.0); Hemoglobin 11.8 g/dL (12.0-16.0); Immature Granulocytes % (Auto) 0 % (0-0); Immature Granulocytes Auto 0.01 Thou/mm3 (0.00-0.00); Lymphocytes % (Auto) 17 % (10-50); Mean Corpuscular HGB Conc 32.6 g/dl (31.0-37.0); Mean Corpuscular Hemoglobin 32.8 pg (25.0-35.0); Mean Corpuscular Volume 101 fL (80-100); Monocytes # (Auto) 0.4 Thou/mm3 (0.0-0.8); Monocytes % (Auto) 7 % (0-12); Neutrophils # (Auto) 4.5 Thou/mm3 (1.8-7.7); Neutrophils % (Auto) 75 % (37-80); Nucleated Red Blood Cell % 0 /100 WBC (0); Platelet Count 163 Thou/mm3 (140-440); White Blood Count 6.1 Thou/mm3 (3.6-11.0)
[2025-01-24 06:22] LABS: Alanine Aminotransferase < 7 U/L (10-49); Albumin, Serum 3.5 gm/dL (3.4-4.8); Albumin/Globulin Ratio 1.1 (1.2-2.2); Alkaline Phosphatase 55 U/L (46-116); Anion Gap 7 (7-16); Aspartate Amino Transferase 23 U/L (0-34); BUN/Creatinine Ratio 22 Ratio (12-20); Bilirubin,Total 0.5 mg/dL (0.3-1.2); Blood Urea Nitrogen 13 mg/dL (9-23); Calcium 9.8 mg/dL (8.3-10.6); Calcium (Corrected) 10.2 mg/dL (8.5-10.1); Carbon Dioxide 37.1 mMol/L (20.0-31.0); Chloride 95 mMol/L (98-107); Creatinine (Component) 0.6 mg/dL (0.6-1.3); Estimated Creatinine Clearance 51.7 mL/min (>60); Globulin 3.1 gm/dL (2.3-3.5); Glucose 82 mg/dL (74-106); Magnesium 2.2 mg/dL (1.6-2.6); Osmolality,Calculated 276 (275-295); Phosphorous 2.3 mg/dL (2.4-5.1); Potassium 3.7 mMol/L (3.4-5.1); Procalcitonin 0.09 ng/ml (0.0-0.49); Sodium 139 mMol/L (136-145); Total Protein 6.6 gm/dL (5.7-8.2); eGFR > 60 See Note
[2025-01-24] MEDS: ENOXAPARIN SOD INJ 40 MG/0.4 ML SYRINGE SC (08:35)
[2025-01-24] MEDS: cefTRIAXone 1,000 MG in SODIUM CHLORIDE 0.9% (Popper) 50 ML 100 MG IV (08:35)
[2025-01-24] MEDS: POLYETHYLENE GLYCOL 17 GM PACKET PO (08:35)
[2025-01-24] MEDS: SENNA TABLET 1 TAB PO (08:35)
[2025-01-24] MEDS: ACETAMINOPHEN 325 MG TABLET 650 MG PO ×2 (11:19→20:36)
--- NOTE | 2025-01-24 13:55 | PC.PT ---
PT eval only. Patient is at her maximum rehab potential. Will need homehealth PT to evaluate patient's safety at home to decrease fall risk.
--- NOTE | 2025-01-24 14:49 | PC.SS ---
Follow up note: Pt is on IV antibiotic. Pt will return home upon dc.
--- NOTE | 2025-01-24 15:38 | PC.NURSE ---
made aware pt is requesting medication for sleep tonight. to place orders
--- NOTE | 2025-01-24 15:50 | PC.SS ---
SS met with patient regarding her d/c plan.? Pt is alert/oriented.? Pt was admitted for Pneumonia.? Pt confirmed demographic and contact information is correct on facesheet.? Pt resides with son.? Pt ambulates using a 4 wheel with seat, rollator walker.? Pt requires assistance with ADLs.? Pt named her dtr, Bere Palacios medical decision maker if she is unable.? SS provided pt with verbal d/c options to home or SNF.? Patient?s choice is to return home upon d/c.? Pt states her 2 daughters are her [facility] caregivers.? Dtr, Bere confirmed pt has had [facility] in the past.? SS provided verbal choices for HH ([facility], [facility], [facility], and [facility]).? Dtr states pt was established with [facility] in the past and pt is requesting to continue with them.? SS provided pt and dtr with [facility].? Pt states she followed with with PCP in December 2024. D/C plan:? Return home Next of Kin:? Bere Palacios, dtr, phone# [phone] PCP:? Dr. Eunice Monroy from [facility] Address:? Correct on facesheet
--- NOTE | 2025-01-24 17:31 | ECHO_ITS ---
Transthoracic Echo Report Ht (in): 61 Wt (lb): 103 Exam Location: Portable Status: Inpatient Occupational Therapy Teacher: GRANT Za^^^^ Indications: Procedure Performed: BP: 124 / 74 HR: 77 Technical Quality: Fair MEASUREMENTS (Male / Female) Normal Values 2D ECHO LV Diastolic Diameter PLAX 4.4 cm 4.2 - 5.9 / 3.9 - 5.3 cm LV Systolic Diameter PLAX 2.8 cm IVS Diastolic Thickness 0.5 cm 0.6 - 1.0 / 0.6 - 0.9 cm LVPW Diastolic Thickness 0.6 cm 0.6 - 1.0 / 0.6 - 0.9 cm LV Relative Wall Thickness 0.3 LVOT Diameter 2.0 cm Aortic Root Diameter 3.2 cm LA Systolic Diameter LX 2.3 cm 3.0 - 4.0 / 2.7 - 3.8 cm LV Ejection Fraction MOD 4C 61.2 % LV Cardiac Index MOD 4C 3926.6 cm?/min?m? LV Ejection Fraction 4C AL 61.9 % LV Cardiac Index 4C AL 4093.0 cm?/min?m? LV Ejection Fraction MOD 2C 58.3 % LV Cardiac Index MOD 2C 2186.3 cm?/min?m? LV Ejection Fraction 2C AL 60.7 % LV Cardiac Index 2C AL 2296.9 cm?/min?m? LA Volume Index 35.4 cm?/m? 16 - 28 cm?/m? Ascending Aorta Diameter 3.3 cm DOPPLER AV Peak Velocity 135.7 cm/s AV Peak Gradient 7.4 mmHg AV Mean Gradient 4.0 mmHg AV Velocity Time Integral 26.1 cm AI Peak Velocity 248.3 cm/s AI Peak Gradient 24.7 mmHg AI Pressure Half Time 524.3 ms LVOT Peak Velocity 85.0 cm/s LVOT Peak Gradient 2.9 mmHg LVOT Velocity Time Integral 20.6 cm LVOT Cardiac Index 3519.6 cm?/min?m? AV Area Cont Eq vti 2.5 cm? AV Area Cont Eq pk 2.0 cm? MV Area PHT 7.1 cm? MR Peak Velocity 506.0 cm/s MR Peak Gradient 102.4 mmHg Mitral E Point Velocity 43.2 cm/s Mitral A Point Velocity 51.4 cm/s Mitral E to A Ratio 0.8 LV E' Lateral Velocity 5.4 cm/s Mitral E to LV E' Lateral Ratio 8.0 LV E' Septal Velocity 5.7 cm/s Mitral E to LV E' Septal Ratio 7.6 TR Peak Velocity 276.0 cm/s TR Peak Gradient 30.5 mmHg PV Peak Velocity 97.6 cm/s PV Peak Gradient 3.8 mmHg RVOT Peak Velocity 68.7 cm/s FINDINGS Left Ventricle Normal left ventricular size, wall thickness, systolic function with no obvious regional wall motion abnormalities. There is grade I diastolic dysfunction of the left ventricle (impaired relaxation pattern). The left ventricular ejection fraction is normal, estimated at 55-60%. Right Ventricle The right ventricle is normal in size and systolic function. The estimated right ventricular systolic pressure, 48 mmHg. Left Atrium The left atrium is normal by two-dimensional, color flow and Doppler imaging with no structural abnormalities, no thrombus formation present. Right Atrium The right atrium is normal by two-dimensional imaging, color flow and Doppler imaging with no structural abnormalities, no thrombus formation present. Atrial Septum The interatrial septum appears normal with no evidence of a shunt. Aorta The aorta is normal by two-dimensional, color flow and Doppler interrogation. Mitral Valve Mild mitral annular calcification. Mild mitral regurgitation. Aortic Valve Aortic valve sclerosis. Trace to mild aortic valve regurgitation. Tricuspid Valve There is mild to moderate tricuspid valve regurgitation. Pulmonic Valve Mild pulmonic valve regurgitation. Vessels The pulmonary artery appears normal. The inferior vena cava pulmonary and hepatic veins appear normal. Pericardium The pericardium is normal by two-dimensional imaging. There is no significant pericardial effusion. CONCLUSIONS indication: syncope LV appears normal with EF 55-60%. Diastolic Dysfunction I present. RV appears normal with moderately elevated RVSP 48 mmHg. MV has trace-mild MR & MAC AOV is sclerotic with trace-mild AI. TV has mild-moderate TR. Sachin Colón (Electronically Signed) Final Date: 25 January 2025 13:38
--- NOTE | 2025-01-24 18:29 | ESPR_ITS ---
Documentation for date of: 01/24/25 Subjective Subjective Interval history: Patient was seen and examined by the bedside. No acute overnight events. Patient is feeling well. Saturates well on 2L O2. Home oxygen level is 2.5L. PT evaluated the patient, recommended home health. Will continue with antibiotics, cultures are pending. Exam Vital Signs Temp Pulse Resp BP Pulse Ox O2 Del Method O2 Flow Rate 97.7 F 81 18 116/74 98 Nasal Cannula 2 01/24/25 16:00 01/24/25 16:00 01/24/25 16:00 01/24/25 16:01/24/25 16:00 01/24/25 16:00 01/24/25 16:00 Narrative Exam Physical Exam General: Awake and in no acute distress. HEENT: Normocephalic, atraumatic, mucous membranes moist. Heart: Regular rate and rhythm, no murmurs. Lungs: Bilateral diffuse crackles. Abdomen: Soft, nondistended, mild diffuse tenderness, positive bowel sounds. ?No guarding or rebound tenderness. Neurologic: Alert and oriented x3, no gross neurological deficit, and patient able to move all 4 extremities. Extremities: No edema. Skin: No rash or ecchymoses. Objective Labs 01/25/25 04:46 01/25/25 04:46 Labs: Laboratory Results - last 24 hr 01/24/25 04:56 WBC 6.1 RBC 3.60 L Hgb 11.8 L Hct 36.2 MCV 101 H MCH 32.8 MCHC 32.6 RDW Std Deviation 44.0 Plt Count 163 Neut % (Auto) 75 Lymph % (Auto) 17 [place] % (Auto) 7 Eos % (Auto) 1 Baso % (Auto) 0 Neut # (Auto) 4.5 Lymph # (Auto) 1.0 [place] # (Auto) 0.4 Eos # (Auto) 0.1 Baso # (Auto) 0.0 Immature Gran # (Auto) 0.01 H Absolute Nucleated RBC 0.00 Immature Gran % 0 Nucleated RBC % 0 Sodium 139 Potassium 3.7 D Chloride 95 L Carbon Dioxide 37.1 H Anion Gap 7 BUN 13 Creatinine 0.6 Estim Creat Clear Calc 51.7 L eGFR > 60 BUN/Creatinine Ratio 22 H Glucose 82 Calculated Osmolality 276 Calcium 9.8 Corrected Calcium 10.2 H Phosphorus 2.3 L Magnesium 2.2 Total Bilirubin 0.5 AST 23 ALT < 7 L Alkaline Phosphatase 55 Total Protein 6.6 Albumin 3.5 D Globulin 3.1 Albumin/Globulin Ratio 1.1 L Procalcitonin 0.09 ABG Interpretation ABG results: 01/23/25 01/23/25 09:44 17:47 VBG pH 7.39 7.33 VBG pCO2 69 H 81 H D VBG pO2 33 41 VBG Base Excess 14 H 13 H Quality Measures Quality Measures VTE prophylaxis Advance care planning discussed with:: child Assessment & Plan Assessment Current Active Medications: Generic Name Dose Route Start Last Admin Trade Name Freq PRN Reason Stop Dose Admin Acetaminophen 650 mg 01/23/25 16:14 01/24/25 11:19 Acetaminophen 325 Mg Tablet PO 02/22/25 16:13 650 mg Q6H PRN Administration Fever >100.3 or pain 1-3 Albuterol/Ipratropium 3 ml 01/23/25 19:00 01/24/25 14:04 Albuterol/Ipratropium (Duoneb) Rt Lyn 3 Ml Nebu INH 02/22/25 18:59 3 ml Q6HRRT TOYA Administration Enoxaparin Sodium 40 mg 01/24/25 09:00 01/24/25 08:35 Enoxaparin Sod Inj 40 Mg/0.4 Ml Syringe SC 02/07/25 08:59 40 mg QDAY TOYA Administration Ceftriaxone Sodium 1,000 mg/ 50 mls @ 100 mls/hr 01/24/25 09:00 01/24/25 08:35 Sodium Chloride IV 01/31/25 08:59 100 mls/hr QDAY TOYA Administration Azithromycin 500 mg/ Sodium 250 mls @ 250 mls/hr 01/24/25 21:00 Chloride IV 01/30/25 20:59 QDAY@2100 TOYA Melatonin 3 mg 01/24/25 21:00 Melatonin 3 Mg Tablet PO 02/23/25 20:59 HS TOYA Ondansetron HCl 4 mg 01/23/25 16:14 Ondansetron Inj 2 Mg/Ml Inj 2 Ml IV 02/22/25 16:13 Q6H PRN NAUSEA OR VOMITING Protocol Oxycodone/Acetaminophen 1 tab 01/23/25 16:14 Oxycodone/Apap 5/325 Tablet PO 01/28/25 16:13 Q6H PRN PAIN SCALE 4-10(Mod-Sev Polyethylene Glycol 17 gm 01/23/25 16:30 01/24/25 08:35 Polyethylene Glycol 17 Gm Packet PO 02/22/25 16:29 17 gm QDAY TOYA Administration Sennosides 1 tab 01/23/25 16:30 01/24/25 08:35 Senna Tablet PO 02/22/25 16:29 1 tab QDAY TOYA Administration Protocol Plan The patient is a 84-year-old female with a previous medical history of COPD on 2 L home oxygen, hypertension, hyperlipidemia who was brought to the ED due to ground-level fall. Patient was being admitted for acute on chronic hypoxic respiratory failure secondary to pneumonia. #Acute on chronic hypoxic respiratory failure #Community-acquired pneumonia #History of COPD Patient has a history of COPD, does not have history of smoking. 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 In the ED her oxygen demands are increased and she desats while moving. Chest x-ray showed pneumonia superimposed on pulmonary fibrosis. Patient has an elevated pCO2 on VBGs and high bicarbonate. Plan: ? Ceftriaxone 1 g daily 01/23?current ? Azithromycin 500 daily 01/23?current ? Blood cultures preliminary negative ?Sputum cultures ordered ? 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 There was no witness to the fall and it is unknown if she had a loss of consciousness. CT negative for acute changes, showed opacity artifact. In the ED, she was AOx3, but patient's family reported that she started to become confused in the evenings a few weeks ago. They also reported that she is taking lorazepam for anxiety. Infection possibly is one of the reason for confusion. Orthostatic vitals showed drop >20 mm Hg SBP when sitting Plan: ? Frequent reorientation ? Family visiting ? Lorazepam on hold for now ? Will try to avoid Beers criteria medications - Echo doppler #Hypomagnesemia, resolved Plan: -Monitor CMP #Constipation Plan: - miralax 1 pkt daily - senna 1 tab daily #History of hypertension #Hyperlipidemia Will hold home blood pressure medications for now due to normal blood pressure. Med rec is pending. Health maintenance: FEN: cardiac DVT prophylaxis: lovenox sc GI prophylaxis: Dispo: med tele CODE STATUS: DNR Plan of care discussed with attending Dr. Hendrickson and PGY-[address] White. Nalini Mccormick MD, PGY 1. -- ATTESTATION: I saw and examined the patient this morning, and I agree with current management stated by the resident. Will continue to monitor patient during their stay. Patient is a 84-year-old female with previous history of COPD on 2 L of home oxygen, hypertension, hyperlipidemia who was initially admitted on 01/24/2024 after a ground-level fall where she was found down by family members. In our ER she was found to have a extensive bilateral pneumonia with acute hypoxic respiratory failure. She also had electrolyte abnormalities and she was admitted for further suspected syncopal workup. Patient is doing great this morning and is back to home O2 baseline. We are pending urine cultures and further rehabilitation with physical therapy prior to discharge during the patient. Likely discharge tomorrow. Disclaimer: Despite multiple revisions, due to the dictation software being used, the document bellow may not be free of grammatical errors including phonetic/typographic errors. However, this does not deter from our commitment to providing health care in the patient's best interest in mind. Dr. Tomas White, PGY-3 Attending Provider Attestation/Addendum I have examined the patient, reviewed labs and imaging findings, discussed the case with the resident(s), and reviewed entered orders. I agree with the plan of care as outlined in this note, with these additional summaries/recommendations: Patient is a 84-year-old female with a medical history of pulmonary fibrosis, COPD, chronic respiratory failure on 2.5 to 3 L home O2, primary hypertension, and hyperlipidemia who presented to [facility] emergency department on 01/23/2025 after a ground-level fall which was unwitnessed and suspected syncopal episode and thus hospitalist team consulted for continuation of care. Patient seen at bedside. No acute overnight events. Patient appears around her baseline mental status today. Patient was admitted for acute on chronic hypoxic respiratory failure in the setting of bacterial pneumonia and severe underlying pulmonary fibrosis/COPD. Will continue IV antibiotics and cultures pending. Continue breathing treatments. Patient only requiring minimal nasal cannula at this time and we will continue to monitor. Patient also had an unwitnessed fall admission suspect possible syncopal episode and thus pending echocardiogram, orthostatic vitals and EKG reviewed. Patient noted to be taking benzodiazepine which we recommend be discontinued and tapered. Patient endorses constipation and will give laxatives. Replace electrolytes as needed. Repeat hematology and chemistry panel in AM. Dr. Emeka MD
[2025-01-24] MEDS: MELATONIN 3 MG TABLET PO (20:11)
[2025-01-24] MEDS: AZITHROMYCIN INJ 500 MG in SODIUM CHLORIDE 0.9% 250 ML 250 ML 250 MG IV (20:11)
[2025-01-25] VITALS (8 sets, daily range): BP systolic 131–156; BP diastolic 67–95; PULSE 71–98; RESP 17–26; TEMP 36.2–36.9; O2SAT 94–100
[2025-01-25] MEDS: oxyCODONE/APAP 5/325 TABLET 1 TAB PO (00:10)
[2025-01-25] MEDS: ALBUTEROL/IPRATROPIUM (Duoneb) RT SOL 3 ML NEBU INH ×2 (01:47→06:18)
[2025-01-25 05:45] LABS: Basophils # (Auto) 0.1 Thou/mm3 (0.0-0.2); Basophils % (Auto) 1 % (0-2.5); Eosinophils # (Auto) 0.2 Thou/mm3 (0.0-0.5); Eosinophils % (Auto) 2 % (0-10); Hematocrit 31.5 % (36.0-46.0); Hemoglobin 10.8 g/dL (12.0-16.0); Immature Granulocytes % (Auto) 0 % (0-0); Immature Granulocytes Auto 0.01 Thou/mm3 (0.00-0.00); Lymphocytes # (Auto) 1.5 Thou/mm3 (1.0-4.8); Lymphocytes % (Auto) 23 % (10-50); Mean Corpuscular HGB Conc 34.3 g/dl (31.0-37.0); Mean Corpuscular Hemoglobin 33.9 pg (25.0-35.0); Mean Corpuscular Volume 99 fL (80-100); Monocytes # (Auto) 0.5 Thou/mm3 (0.0-0.8); Monocytes % (Auto) 8 % (0-12); Neutrophils # (Auto) 4.3 Thou/mm3 (1.8-7.7); Neutrophils % (Auto) 65 % (37-80); Nucleated Red Blood Cell % 0 /100 WBC (0); Platelet Count 284 Thou/mm3 (140-440); Red Blood Count 3.19 Miln/mm3 (4.00-5.20); White Blood Count 6.6 Thou/mm3 (3.6-11.0)
[2025-01-25 06:47] LABS: Alanine Aminotransferase < 7 U/L (10-49); Albumin, Serum 3.2 gm/dL (3.4-4.8); Albumin/Globulin Ratio 1.2 (1.2-2.2); Alkaline Phosphatase 48 U/L (46-116); Anion Gap 1 (7-16); Aspartate Amino Transferase 20 U/L (0-34); BUN/Creatinine Ratio 18 Ratio (12-20); Bilirubin,Total 0.4 mg/dL (0.3-1.2); Blood Urea Nitrogen 11 mg/dL (9-23); Calcium 9.5 mg/dL (8.3-10.6); Calcium (Corrected) 10.1 mg/dL (8.5-10.1); Carbon Dioxide 39.7 mMol/L (20.0-31.0); Chloride 97 mMol/L (98-107); Creatinine (Component) 0.6 mg/dL (0.6-1.3); Estimated Creatinine Clearance 51.7 mL/min (>60); Globulin 2.6 gm/dL (2.3-3.5); Glucose 86 mg/dL (74-106); Osmolality,Calculated 274 (275-295); Potassium 3.8 mMol/L (3.4-5.1); Sodium 138 mMol/L (136-145); Total Protein 5.8 gm/dL (5.7-8.2); eGFR > 60 See Note
[2025-01-25] MEDS: cefTRIAXone 1,000 MG in SODIUM CHLORIDE 0.9% (Popper) 50 ML 100 MG IV (09:33)
[2025-01-25] MEDS: SENNA TABLET 1 TAB PO (09:33)
[2025-01-25] MEDS: ENOXAPARIN SOD INJ 40 MG/0.4 ML SYRINGE SC (09:33)
[2025-01-25] MEDS: POLYETHYLENE GLYCOL 17 GM PACKET PO (09:33)
[2025-01-25] MEDS: NAPH,KPH MBDB 1 PACKET (1.5 GM) PO (12:20)
--- NOTE | 2025-01-25 14:35 | ESPR_ITS ---
<Statement entered by Tiffany Spencer MD - 01/26/25 01:17> Patient was seen and examined by me personally. I have directly supervised and reviewed documentation by the team resident and agree with its findings with any exceptions or additional findings as below. Plan of care was discussed with the attending, Dr. Hendrickson. Patient was doing well this morning, reported no complaints. She is on her baseline O2 amount of 2L. Blood cultures are negative post-48 hours, urine culture is negative, MRSA screen is negative, and sputum culture is pending however was not sufficient quality sample with 10-25 epithelial cells. Will plan to discharge the patient on PO antibiotics to complete the course for pneumonia after echo is read for the syncope workup. Tiffany Spencer, PGY-2 Documentation for date of: 01/25/25 Subjective Subjective Interval history: Patient was seen and examined by the bedside. No acute overnight events. Patient reports feeling better, her shortness of breath improved. Saturates well on 2L [place]. Echo reading is pending. Anticipate discharge home with home health in 24 hours. Exam Vital Signs Temp Pulse Resp BP Pulse Ox O2 Del Method O2 Flow Rate 97.8 F 75 21 H 135/95 H 99 Nasal Cannula 2 01/25/25 12:00 01/25/25 12:00 01/25/25 12:00 01/25/25 12:00 01/25/25 12:00 01/25/25 12:00 01/25/25 12:00 Narrative Exam Physical Exam General: Awake and in no acute distress. HEENT: Normocephalic, atraumatic, mucous membranes moist. Heart: Regular rate and rhythm, no murmurs. Lungs: Bilateral diffuse fine crackles. Abdomen: Soft, nondistended, mild diffuse tenderness, positive bowel sounds. ?No guarding or rebound tenderness. Neurologic: Alert and oriented x3, no gross neurological deficit, and patient able to move all 4 extremities. Extremities: No edema. Skin: No rash or ecchymoses. Objective Labs 01/26/25 05:12 01/26/25 05:12 Labs: Laboratory Results - last 24 hr 01/25/25 04:46 WBC 6.6 RBC 3.19 L Hgb 10.8 L Hct 31.5 L MCV 99 MCH 33.9 MCHC 34.3 RDW Std Deviation 44.0 Plt Count 284 D Neut % (Auto) 65 Lymph % (Auto) 23 [place] % (Auto) 8 Eos % (Auto) 2 Baso % (Auto) 1 Neut # (Auto) 4.3 Lymph # (Auto) 1.5 [place] # (Auto) 0.5 Eos # (Auto) 0.2 Baso # (Auto) 0.1 Immature Gran # (Auto) 0.01 H Absolute Nucleated RBC 0.00 Immature Gran % 0 Nucleated RBC % 0 Sodium 138 Potassium 3.8 Chloride 97 L Carbon Dioxide 39.7 H Anion Gap 1 L BUN 11 Creatinine 0.6 Estim Creat Clear Calc 51.7 L eGFR > 60 BUN/Creatinine Ratio 18 Glucose 86 Calculated Osmolality 274 L Calcium 9.5 Corrected Calcium 10.1 Total Bilirubin 0.4 AST 20 ALT < 7 L Alkaline Phosphatase 48 Total Protein 5.8 Albumin 3.2 L Globulin 2.6 Albumin/Globulin Ratio 1.2 ABG Interpretation ABG results: 01/23/25 01/23/25 09:44 17:47 VBG pH 7.39 7.33 VBG pCO2 69 H 81 H D VBG pO2 33 41 VBG Base Excess 14 H 13 H Quality Measures Quality Measures VTE prophylaxis Advance care planning discussed with:: child Assessment & Plan Assessment Current Active Medications: Generic Name Dose Route Start Last Admin Trade Name Freq PRN Reason Stop Dose Admin Acetaminophen 650 mg 01/23/25 16:14 01/24/25 20:36 Acetaminophen 325 Mg Tablet PO 02/22/25 16:13 650 mg Q6H PRN Administration Fever >100.3 or pain 1-3 Albuterol/Ipratropium 3 ml 01/25/25 07:57 Albuterol/Ipratropium (Duoneb) Rt Lyn 3 Ml Nebu INH 02/22/25 18:59 Q6HRRT PRN shortness of breath Enoxaparin Sodium 40 mg 01/24/25 09:00 01/25/25 09:33 Enoxaparin Sod Inj 40 Mg/0.4 Ml Syringe SC 02/07/25 08:59 40 mg QDAY TOYA Administration Ceftriaxone Sodium 1,000 mg/ 50 mls @ 100 mls/hr 01/24/25 09:00 01/25/25 09:33 Sodium Chloride IV 01/31/25 08:59 100 mls/hr QDAY TOYA Administration Azithromycin 500 mg/ Sodium 250 mls @ 250 mls/hr 01/24/25 21:00 01/24/25 20:11 Chloride IV 01/30/25 20:59 250 mls/hr QDAY@2100 TOYA Administration Melatonin 3 mg 01/24/25 21:00 01/24/25 20:11 Melatonin 3 Mg Tablet PO 02/23/25 20:59 3 mg HS TOYA Administration Ondansetron HCl 4 mg 01/23/25 16:14 Ondansetron Inj 2 Mg/Ml Inj 2 Ml IV 02/22/25 16:13 Q6H PRN NAUSEA OR VOMITING Protocol Oxycodone/Acetaminophen 1 tab 01/23/25 16:14 01/25/25 00:10 Oxycodone/Apap 5/325 Tablet PO 01/28/25 16:13 1 tab Q6H PRN Administration PAIN SCALE 4-10(Mod-Sev Polyethylene Glycol 17 gm 01/23/25 16:30 01/25/25 09:33 Polyethylene Glycol 17 Gm Packet PO 02/22/25 16:29 17 gm QDAY TOYA Administration Sennosides 1 tab 01/23/25 16:30 01/25/25 09:33 Senna Tablet PO 02/22/25 16:29 1 tab QDAY TOYA Administration Protocol Plan The patient is a 84-year-old female with a previous medical history of COPD on 2 L home oxygen, hypertension, hyperlipidemia who was brought to the ED due to ground-level fall. Patient was being admitted for acute on chronic hypoxic respiratory failure secondary to pneumonia. #Acute on chronic hypoxic respiratory failure #Community-acquired pneumonia #History of COPD Patient has a history of COPD, does not have history of smoking. Follows up with sharepoint architect and is using oxygen at home. In the ED her oxygen demands are increased and she desats while moving. Chest x-ray showed pneumonia superimposed on pulmonary fibrosis. Patient has an elevated pCO2 on VBGs and high bicarbonate. Blood culture, urine culture negative, MRSA screen negative. Sputum culture pending. Plan: ? Ceftriaxone 1 g daily 01/23?current ? Azithromycin 500 daily 01/23?current ?Sputum cultures pending ? 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 There was no witness to the fall and it is unknown if she had a loss of consciousness. CT negative for acute changes, showed opacity artifact. In the ED, she was AOx3, but patient's family reported that she started to become confused in the evenings a few weeks ago. They also reported that she is taking lorazepam for anxiety. Infection possibly is one of the reason for confusion. Orthostatic vitals showed drop >10 mm Hg SBP when standing Plan: ? Frequent reorientation ? Family visiting ? Lorazepam on hold for now ? Will try to avoid Beers criteria medications - Echo doppler #Hypomagnesemia, resolved Plan: -Monitor CMP #Constipation Plan: - miralax 1 pkt daily - senna 1 tab daily #History of hypertension #Hyperlipidemia Will hold home blood pressure medications for now due to normal blood pressure. Health maintenance: FEN: cardiac DVT prophylaxis: lovenox sc GI prophylaxis: Dispo: med tele CODE STATUS: DNR Plan of care discussed with attending Dr. Hendrickson and PGY-[address] Spencer. Nalini Mccormick MD, PGY 1. Attending Provider Attestation/Addendum I have examined the patient, reviewed labs and imaging findings, discussed the case with the resident(s), and reviewed entered orders. I agree with the plan of care as outlined in this note. Dr. Emeka MD
[2025-01-25] MEDS: LORazepam 0.5 MG TABLET PO (15:15)
--- NOTE | 2025-01-25 16:47 | ESDS_ITS ---
<Statement entered by Tiffany Spencer MD - 01/26/25 01:27> Patient was seen and examined by me personally. I have directly supervised and reviewed documentation by the team resident and agree with its findings with any exceptions or additional findings as below. Plan of care was discussed with the attending, Dr. Hendrickson. Initially planning to discharge as echo was read, showing normal EF 60% and stage I diastolic dysfunction. However patient's daughter did not want to take the patient home therefore discharge was postponed to tomorrow. Tiffany Spencer, PGY-2 Planned Discharge Date 01/25/25 DS: Providers Provider Date of admission: 01/23/25 16:27 [facility] Admitting Provider: Perry Hendrickson MD Attending Provider on Admission: Perry Hendrickson MD Consults: 01/23/25 16:40 Referral Physical Therapy Routine Comment: Physician Instructions: Attending Provider on DC: Nalini Mccormick MD Discharging Provider: Nalini Mccormick MD DS: Diagnosis Problem List Completed Was Problem List Reviewed/Reconciled?: Yes Hospital Course Hospital Course Hospital course: The patient is a 84-year-old male with a previous medical history of COPD on 2.5 L of home, pulmonary fibrosis, hypertension and lipidemia who was brought to the ED due to unwitnessed fall. She has a history of taking lorazepam for anxiety. In the ED she was hemodynamically stable, afebrile, saturating well on 3 L nasal cannula, somnolent but easily arousable. Chest x-ray showed pneumonia superimposed on pulmonary fibrosis. Head CT lumbar spine CT was negative for acute fractures or hemorrhage. EKG was unremarkable. Echo showed normal ejection fraction and stage I diastolic dysfunction. Orthostatic vitals were positive for orthostatic hypotension. Patient was admitted for acute on chronic hypoxic respiratory failure secondary to pneumonia. She was started on antibiotics and inhalations. Her condition improved, however oxygen requirements came back to the baseline and she has self-reported improvement of breathing. PT assessed her, recommended home with home health. She was seen at the bedside also medically cleared for discharge home with home health. #Acute on chronic hypoxic respiratory failure #Community-acquired pneumonia #History of COPD #Suspected syncope #Altered mental status, resolved #History of anxiety #Orthostatic hypotension #Hypomagnesemia, resolved #Constipation #History of hypertension #Hyperlipidemia Discharge instructions: - Take cefdinir 300 mg twice daily for 4 more days - Follow-up with your PCP in 1-2 weeks - Follow with your support architect Dr. Taveras in 1 week - We recommend stopping Lorazepam as it might be contributing to increased falls - Continue the rest of your medications as prescribed - We have arranged a home health service to help with physical therapy and medications Plan of care discussed with attending Dr. Hendrickson, PGY-[address] Spencer. Nalini Mccormick MD, PGY 1. Time Spent with Patient Time attestation: Total time spent providing and/or coordinating discharge services: Home Health Home Health Referral Orders: 01/24/25 15:41 Home Health Referral Routine Reason For Exam: Needs outpatient PT Home-Bound The patient must either because of illness or injury, need the aid of supportive devices such as crutches, canes, wheelchairs, and walkers; the use of special transportation; or the assistance of another person in order to leave their place of residence; OR have a condition such that leaving his or her home is medically contraindicated. In addition, the patient also meets the following criteria: patient is normally unable to leave the home and leaving home requires considerable taxing effort. Addendum to Home Health Certification Practitioner's Certification: I certify that the patient has been under my care in the hospital and the care of attending physician (see below). We had a pmxl-qs-ihwg encounter on (see date below). My clinical findings indicate that the patient is home bound per the above criteria and the Home Health Services noted in these orders are medically necessary. The primary reason for the xzes-ex-jkpe encounter is related to the fact that the patient requires home health services. Date Certifying Plkn-td-Ganx Physician Encounter: 01/24/25 Physician's Name who will Assume Oversight for Services: [facility] Physician's Phone No.who will Assume Oversight for Service: ESTIMATOR PRINTING - Community Resources: Yes PT to Evaluate: Yes PT to evaluate and provide a treatmnet plan to increase patient's mobility and strength. Wound Care: No IV Therapy: No RN Safety Evaluation: Yes RN to evaluate and create a plan of care that will produce positive outcomes. Palliative Treatment: No Palliative treatment and evaluate the need for hospice. Home Health Aide - Personal Care: Yes Home Health Aide to assist with any ADL's. 01/25/25 10:28 Home Health Referral Routine Reason For Exam: Physical therapy Home-Bound The patient must either because of illness or injury, need the aid of supportive devices such as crutches, canes, wheelchairs, and walkers; the use of special transportation; or the assistance of another person in order to leave their place of residence; OR have a condition such that leaving his or her home is medically contraindicated. In addition, the patient also meets the following criteria: patient is normally unable to leave the home and leaving home requires considerable taxing effort. Addendum to Home Health Certification Practitioner's Certification: I certify that the patient has been under my care in the hospital and the care of attending physician (see below). We had a nevo-hw-ffvb encounter on (see date below). My clinical findings indicate that the patient is home bound per the above criteria and the Home Health Services noted in these orders are medically necessary. The primary reason for the kmjr-ql-fubc encounter is related to the fact that the patient requires home health services. Date Certifying Petr-gw-Ocmh Physician Encounter: 01/23/25 Physician's Name who will Assume Oversight for Services: [facility] Physician's Phone No.who will Assume Oversight for Service: ESTIMATOR PRINTING - Community Resources: No PT to Evaluate: Yes PT to evaluate and provide a treatmnet plan to increase patient's mobility and strength. Wound Care: No IV Therapy: No RN Safety Evaluation: Yes RN to evaluate and create a plan of care that will produce positive outcomes. Palliative Treatment: No Palliative treatment and evaluate the need for hospice. Home Health Aide - Personal Care: No Home Health Aide to assist with any ADL's. Exam Vital Signs Temp Pulse Resp BP Pulse Ox O2 Del Method O2 Flow Rate 97.8 F 75 21 H 135/95 H 99 Nasal Cannula 2 01/25/25 12:00 01/25/25 12:00 01/25/25 12:00 01/25/25 12:00 01/25/25 12:00 01/25/25 12:00 01/25/25 12:00 Narrative Exam Physical Exam General: Awake and in no acute distress. HEENT: Normocephalic, atraumatic, mucous membranes moist. Heart: Regular rate and rhythm, no murmurs. Lungs: Bilateral diffuse fine crackles. Abdomen: Soft, nondistended, mild diffuse tenderness, positive bowel sounds. ?No guarding or rebound tenderness. Neurologic: Alert and oriented x3, no gross neurological deficit, and patient able to move all 4 extremities. Extremities: No edema. Skin: No rash or ecchymoses. Discharge Plan Plan Patient Disposition: Home w/HOME HEALTH Patient condition on transfer: Stable Care Plan Goals: Discharge instructions: - Take cefdinir 300 mg twice daily for 7 more days - Follow-up with your PCP in 1-2 weeks - Follow with your support architect Dr. Taveras in 1 week - We recommend stopping Lorazepam as it might be contributing to increased falls - Continue the rest of your medications as prescribed - We have arranged a home health service to help with physical therapy and medications Prescriptions/Referrals Prescriptions/Med Rec: New cefdinir 300 mg capsule 300 mg PO BID MDD 600 mg 7 Days Qty: 14 0RF Continued simvastatin 20 MG tablet 1 tab PO HS Qty: 0 dronabinol 2.5 mg capsule 2.5 mg PO QDAY PRN (Reason: sundowners syndrome) Patient Comments: TAKE 1 CAPSULE BY MOUTH EVERY DAY 1-3 HOURS PRIOR TO BEDTIME NEEDED FOR SUNDOWNER SYNDROME hydrocodone-acetaminophen 7.5-300 mg tablet 1 tab PO BID PRN (Reason: Pain) Patient Comments: TAKE 1 TABLET BY MOUTH EVERY 12 HOURS NEEDED famotidine 20 mg tablet 20 mg PO QDAY Patient Comments: TAKE 1 TABLET BY MOUTH EVERY DAY sennosides [Senna Lax] 8.6 mg Tablet 8.6 mg PO QDAY PRN (Reason: constipation) Qty: 30 0RF lisinopril 2.5 mg tablet 2.5 mg PO QDAY Qty: 30 0RF Patient Comments: TAKE 1 TABLET BY MOUTH EVERY DAY Rx Instructions: Hold if SBP drops below 100 and DBP below 60 mmHg Discontinued lorazepam 0.5 mg tablet 0.5 mg PO BID PRN (Reason: Anxiety) Patient Comments: TAKE 1 TABLET BY MOUTH TWICE DAILY NEEDED Referrals: Porfirio(Reginaldo),MARIANA Dawson [Primary Care Provider] - Patient/Caregiver Discharge Instructions Education Materials: Chest and Lung Problems, Chronic Lung Disease Caregiver, Interstitial Lung Disease, When You Have Pneumonia, Fall Prevention Assessing Risk, Exercises to Prevent Falls Print Language: Luxembourgish Stand Alone Forms: Ave Award Info., Patient Portal Info Letter Quality Discharge Quality Measures VTE prophylaxis MD Attestestation MD Attestation I have examined the patient, reviewed labs and imaging findings, discussed the case with the resident(s), and reviewed entered orders. I agree with the plan of care as outlined in this note. Dr. Emeka MD
--- NOTE | 2025-01-25 17:24 | PC.SS ---
SS provided information on medicare; pt is alert and oriented times 4
[2025-01-25] MEDS: MELATONIN 3 MG TABLET PO (20:24)
[2025-01-25] MEDS: AZITHROMYCIN INJ 500 MG in SODIUM CHLORIDE 0.9% 250 ML 250 ML 250 MG IV (20:24)
[2025-01-26] VITALS (7 sets, daily range): BP systolic 111–135; BP diastolic 55–76; PULSE 56–115; RESP 16–24; TEMP 36.1–36.3; O2SAT 99–100
[2025-01-26] MEDS: ALBUTEROL/IPRATROPIUM (Duoneb) RT SOL 3 ML NEBU INH ×2 (06:26→12:49)
[2025-01-26 06:34] LABS: Basophils % (Auto) 0 % (0-2.5); Eosinophils # (Auto) 0.3 Thou/mm3 (0.0-0.5); Eosinophils % (Auto) 4 % (0-10); Hematocrit 34.2 % (36.0-46.0); Hemoglobin 11.2 g/dL (12.0-16.0); Immature Granulocytes % (Auto) 0 % (0-0); Immature Granulocytes Auto 0.02 Thou/mm3 (0.00-0.00); Lymphocytes # (Auto) 1.7 Thou/mm3 (1.0-4.8); Lymphocytes % (Auto) 22 % (10-50); Mean Corpuscular HGB Conc 32.7 g/dl (31.0-37.0); Mean Corpuscular Hemoglobin 32.7 pg (25.0-35.0); Mean Corpuscular Volume 100 fL (80-100); Monocytes # (Auto) 0.7 Thou/mm3 (0.0-0.8); Monocytes % (Auto) 9 % (0-12); Neutrophils % (Auto) 65 % (37-80); Nucleated Red Blood Cell % 0 /100 WBC (0); Platelet Count 175 Thou/mm3 (140-440); Red Blood Count 3.42 Miln/mm3 (4.00-5.20); White Blood Count 7.8 Thou/mm3 (3.6-11.0)
[2025-01-26 07:06] LABS: Alanine Aminotransferase < 7 U/L (10-49); Albumin, Serum 3.2 gm/dL (3.4-4.8); Albumin/Globulin Ratio 1.3 (1.2-2.2); Alkaline Phosphatase 49 U/L (46-116); Anion Gap 4 (7-16); Aspartate Amino Transferase 20 U/L (0-34); BUN/Creatinine Ratio 18 Ratio (12-20); Bilirubin,Total 0.5 mg/dL (0.3-1.2); Blood Urea Nitrogen 9 mg/dL (9-23); Calcium 9.5 mg/dL (8.3-10.6); Calcium (Corrected) 10.1 mg/dL (8.5-10.1); Carbon Dioxide 37.1 mMol/L (20.0-31.0); Chloride 97 mMol/L (98-107); Creatinine (Component) 0.5 mg/dL (0.6-1.3); Globulin 2.5 gm/dL (2.3-3.5); Glucose 79 mg/dL (74-106); Osmolality,Calculated 273 (275-295); Sodium 138 mMol/L (136-145); Total Protein 5.7 gm/dL (5.7-8.2); eGFR > 60 See Note
[2025-01-26] MEDS: cefTRIAXone 1,000 MG in SODIUM CHLORIDE 0.9% (Popper) 50 ML 100 MG IV (08:59)
[2025-01-26] MEDS: ENOXAPARIN SOD INJ 40 MG/0.4 ML SYRINGE SC (08:59)
[2025-01-26] MEDS: SENNA TABLET 1 TAB PO (09:00)
[2025-01-26] MEDS: POLYETHYLENE GLYCOL 17 GM PACKET PO (09:00)
--- NOTE | 2025-01-26 10:24 | EKG_ITS ---
[facility] Test Date: 2025-01-26 Pat Name: MOY ANDRADE [facility] Gender: Female Hand Cloth Folder: EZE : 1940 Requested By: Nalini Mccormick Order Number: [id number] Reading MD: Nalini Mccormick Measurements Intervals [place] Rate: 69 P: 20 IN: 115 QRS: -29 QRSD: 92 T: 205 QT: 396 QTc: 425 Interpretive Statements SINUS RHYTHM WITH SHORT IN INTERVAL BORDERLINE LEFT AXIS DEVIATION LEFT VENTRICULAR HYPERTROPHY AND ST-T CHANGE Compared to ECG 01/23/2025 09:40:43 Short IN interval now present ST (T wave) deviation still present /store/S0/[id number].pdf
--- NOTE | 2025-01-26 18:13 | ESDS_ITS ---
Planned Discharge Date 01/26/25 DS: Providers Provider Date of admission: 01/23/25 16:27 Primary care physician: Eunice Monroy([facility])MARIANA Admitting Provider: Perry Hendrickson MD Attending Provider on Admission: Perry Hendrickson MD Consults: 01/23/25 16:40 Referral Physical Therapy Routine Comment: Physician Instructions: Attending Provider on DC: Nalini Mccormikc MD Discharging Provider: Nalini Mccormick MD DS: Diagnosis Problem List Completed Was Problem List Reviewed/Reconciled?: Yes Hospital Course Hospital Course Hospital course: The patient is a 84-year-old male with a previous medical history of COPD on 2.5 L of home, pulmonary fibrosis, hypertension and lipidemia who was brought to the ED due to unwitnessed fall. She has a history of taking lorazepam for anxiety. In the ED she was hemodynamically stable, afebrile, saturating well on 3 L nasal cannula, somnolent but easily arousable. Chest x-ray showed pneumonia superimposed on pulmonary fibrosis. Head CT lumbar spine CT was negative for acute fractures or hemorrhage. EKG was unremarkable. Echo showed normal ejection fraction and stage I diastolic dysfunction. Orthostatic vitals were positive for orthostatic hypotension. Patient was admitted for acute on chronic hypoxic respiratory failure secondary to pneumonia. She was started on antibiotics and inhalations. Her condition improved, however oxygen requirements came back to the baseline and she has self-reported improvement of breathing. PT assessed her, recommended home with home health. She was seen at the bedside also medically cleared for discharge home with home health. #Acute on chronic hypoxic respiratory failure #Community-acquired pneumonia #History of COPD #Suspected syncope #Altered mental status, resolved #History of anxiety #Orthostatic hypotension #Hypomagnesemia, resolved #Constipation #History of hypertension #Hyperlipidemia Discharge instructions: - Take cefdinir 300 mg twice daily for 4 more days - Follow-up with your PCP in 1-2 weeks - Follow with your entertainment director Dr. Taveras in 1 week - We recommend stopping Lorazepam as it might be contributing to increased falls - Continue the rest of your medications as prescribed - We have arranged a home health service to help with physical therapy and medications Plan of care discussed with attending Dr. Hendrickson, PGY-[address] Spencer. Nalini Mccormick MD, PGY 1. Time Spent with Patient Time attestation: Total time spent providing and/or coordinating discharge services: Home Health Home Health Referral Orders: 01/25/25 10:28 Home Health Referral Routine Reason For Exam: Physical therapy Home-Bound The patient must either because of illness or injury, need the aid of supportive devices such as crutches, canes, wheelchairs, and walkers; the use of special transportation; or the assistance of another person in order to leave their place of residence; OR have a condition such that leaving his or her home is medically contraindicated. In addition, the patient also meets the following criteria: patient is normally unable to leave the home and leaving home requires considerable taxing effort. Addendum to Home Health Certification Practitioner's Certification: I certify that the patient has been under my care in the hospital and the care of attending physician (see below). We had a umff-bs-jswk encounter on (see date below). My clinical findings indicate that the patient is home bound per the above criteria and the Home Health Services noted in these orders are medically necessary. The primary reason for the spwt-wc-epkj encounter is related to the fact that the patient requires home health services. 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 Wound Care: No IV Therapy: No RN Safety Evaluation: Yes RN to evaluate and create a plan of care that will produce positive outcomes. Palliative Treatment: No Palliative treatment and evaluate the need for hospice. Home Health Aide - Personal Care: No Home Health Aide to assist with any ADL's. Exam Vital Signs Temp Pulse Resp BP Pulse Ox O2 Del Method O2 Flow Rate 97.2 F 68 17 111/55 L 99 Room Air 2 01/26/25 12:00 01/26/25 12:49 01/26/25 12:49 01/26/25 12:00 01/26/25 12:49 01/26/25 12:00 01/26/25 12:49 Narrative Exam Physical Exam General: Awake and in no acute distress. HEENT: Normocephalic, atraumatic, mucous membranes moist. Heart: Regular rate and rhythm, no murmurs. Lungs: Bilateral diffuse fine crackles. Abdomen: Soft, nondistended, mild diffuse tenderness, positive bowel sounds. ?No guarding or rebound tenderness. Neurologic: Alert and oriented x3, no gross neurological deficit, and patient able to move all 4 extremities. Extremities: No edema. Skin: No rash or ecchymoses. Discharge Plan Plan Patient Disposition: Home w/HOME HEALTH Patient condition on transfer: Stable Care Plan Goals: Discharge instructions: - Take cefdinir 300 mg twice daily for 7 more days - Follow-up with your PCP in 1-2 weeks - Follow with your entertainment director Dr. Taveras in 1 week - We recommend stopping Lorazepam as it might be contributing to increased falls - Start Melatonin 3 mg 1 hours before sleep - Continue the rest of your medications as prescribed - We have arranged a home health service to help with physical therapy and medications Prescriptions/Referrals Prescriptions/Med Rec: New cefdinir 300 mg capsule 300 mg PO BID MDD 600 mg 7 Days Qty: 14 0RF melatonin 3 mg capsule 3 mg PO HS PRN (Reason: sleep) Qty: 30 0RF Continued simvastatin 20 MG tablet 1 tab PO HS Qty: 0 dronabinol 2.5 mg capsule 2.5 mg PO QDAY PRN (Reason: sundowners syndrome) Patient Comments: TAKE 1 CAPSULE BY MOUTH EVERY DAY 1-3 HOURS PRIOR TO BEDTIME NEEDED FOR SUNDOWNER SYNDROME hydrocodone-acetaminophen 7.5-300 mg tablet 1 tab PO BID PRN (Reason: Pain) Patient Comments: TAKE 1 TABLET BY MOUTH EVERY 12 HOURS NEEDED famotidine 20 mg tablet 20 mg PO QDAY Patient Comments: TAKE 1 TABLET BY MOUTH EVERY DAY sennosides [Senna Lax] 8.6 mg Tablet 8.6 mg PO QDAY PRN (Reason: constipation) Qty: 30 0RF lisinopril 2.5 mg tablet 2.5 mg PO QDAY Qty: 30 0RF Patient Comments: TAKE 1 TABLET BY MOUTH EVERY DAY Rx Instructions: Hold if SBP drops below 100 and DBP below 60 mmHg Discontinued lorazepam 0.5 mg tablet 0.5 mg PO BID PRN (Reason: Anxiety) Patient Comments: TAKE 1 TABLET BY MOUTH TWICE DAILY NEEDED Referrals: Papi),MARIANA Dawson [Primary Care Provider] - Patient/Caregiver Discharge Instructions Education Materials: Chest and Lung Problems, Chronic Lung Disease Caregiver, Interstitial Lung Disease, When You Have Pneumonia, Fall Prevention Assessing Risk, Exercises to Prevent Falls Print Language: Yi Stand Alone Forms: Ave Award Info., Patient Portal Info Letter Discharge Order Discharge Orders: Discharge (Routine); Ordered 01/26/25 Ordered By: Nalini Mccormick Quality Discharge Quality Measures VTE prophylaxis MD Attestestation MD Attestation I have examined the patient, reviewed labs and imaging findings, discussed the case with the resident(s), and reviewed entered orders. I agree with the plan of care as outlined in this note. Dr. Emeka MD
--- NOTE | 2025-01-29 07:20 | PC.CC ---
Pt accepted to [facility] SOC will be 01/29/25
== END 2025-01-26 14:31 | disposition home health service (06) | DRG 193 ==
LOC: SERX 15:01 → S3NX 01-24 06:24 → SERHOLD 01-24 06:27 → S3NX 01-24 06:27
PROVIDERS: Admitting Provider Student in an Organized Health Care Education/Training Program; Emergency Provider Emergency Medicine; PCP Nurse Practitioner Family; Visit Provider Student in an Organized Health Care Education/Training Program
DX: J15.9 Unspecified bacterial pneumonia (principal); J96.21 Acute and chronic respiratory failure with hypoxia; J96.22 Acute and chronic respiratory failure with hypercapnia; J44.0 Chronic obstructive pulmonary disease with (acute) lower respiratory infection; J84.10 Pulmonary fibrosis, unspecified; I11.9 Hypertensive heart disease without heart failure; E78.5 Hyperlipidemia, unspecified; E83.42 Hypomagnesemia; F41.9 Anxiety disorder, unspecified; K59.00 Constipation, unspecified; I95.1 Orthostatic hypotension; Z66 Do not resuscitate; Z99.81 Dependence on supplemental oxygen; Z88.6 Allergy status to analgesic agent; Z88.5 Allergy status to narcotic agent; Z88.0 Allergy status to penicillin; Z79.899 Other long term (current) drug therapy
CPT/HCPCS: 36415; 70450; 71045; 72131; 80053; 80307; 81001; 82803; 83605; 83690; 83735; 83880; 84100; 84145; 84484; 85025; 87040; 87077; 87081; 87086; 87106; 87186; 87205; 87400; 87811; 93005; 93225; 93306; 94640; 96365; 96367; 97162; 99285; A9270; J0456; J0696; J1650; J3475; J7050

== ENCOUNTER 2025-02-14 15:08 | Inpatient (IN) | payer MEDICARE, MEDICAID, SELFPAY ==
[2025-02-14] VITALS (11 sets, daily range): BP systolic 131–168; BP diastolic 63–88; PULSE 78–100; RESP 4–52; TEMP 36.3–36.6; O2SAT 100; BMI 31.9
--- NOTE | 2025-02-14 15:22 | EKG_ITS ---
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
--- NOTE | 2025-02-14 15:24 | XR_ITS ---
Examination: AP chest single view Technique one AP portable upright chest single view Exam date and time: February 06, 2025 1547 hours Comparison January 23, 2025 INDICATIONS: Chest pain today FINDINGS: Again noted extensive bilateral lung opacity Normal heart size Moderate osteopenia IMPRESSION: Again noted extensive bilateral lung opacity, differential would include pneumonia superimposed upon pulmonary fibrosis, please see the CT chest report June 12, 2024
[2025-02-14 15:45] LABS: Basophils % (Auto) 1 % (0-2.5); Eosinophils # (Auto) 0.1 Thou/mm3 (0.0-0.5); Eosinophils % (Auto) 1 % (0-10); Hematocrit 35.2 % (36.0-46.0); Hemoglobin 11.5 g/dL (12.0-16.0); Immature Granulocytes % (Auto) 0 % (0-0); Lymphocytes % (Auto) 24 % (10-50); Mean Corpuscular HGB Conc 32.7 g/dl (31.0-37.0); Mean Corpuscular Hemoglobin 32.5 pg (25.0-35.0); Mean Corpuscular Volume 99 fL (80-100); Monocytes # (Auto) 0.3 Thou/mm3 (0.0-0.8); Monocytes % (Auto) 6 % (0-12); Neutrophils # (Auto) 2.9 Thou/mm3 (1.8-7.7); Neutrophils % (Auto) 68 % (37-80); Nucleated Red Blood Cell % 0 /100 WBC (0); Platelet Count 131 Thou/mm3 (140-440); RDW Standard Deviation 42.2 fL (36.4-46.3); Red Blood Count 3.54 Miln/mm3 (4.00-5.20); White Blood Count 4.3 Thou/mm3 (3.6-11.0)
--- NOTE | 2025-02-14 15:53 | PD.EDSOB ---
ED SOB =RME/HPI General Chief Complaint: Shortness of Breath/Dyspnea Stated Complaint: RESPIRATORY FAILURE Time Seen by Provider: 02/14/25 15:19 Arrival date/time: 02/14/25 15:08 RME / HPI RME / HPI Narrative: 84 year old female with history of COPD on 2L home O2, pulmonary fibrosis, hypertension, hyperlipidemia presents to the ED BIBA from home for respiratory failure today. Per medics, son on scene reported finding the patient lying on the bathroom floor unresponsive with questionable tremors. Reportedly had performed CPR until fire arrived. [place] pulses however noted patient to have agonal respirations and began bagging via BVM. Medics state patient occasionally opens eyes and on lung auscultation lungs are diminished bilaterally. Related Data Home Medications ?Medication ?Instructions ?Recorded ?Confirmed simvastatin 20 mg tablet 1 tab PO HS ##0 10/22/13 02/15/25 famotidine 20 mg tablet 20 mg PO QDAY 12/04/24 02/15/25 hydrocodone 7.5 mg-acetaminophen 1 tab PO BID PRN Pain 12/04/24 02/15/25 300 mg tablet dronabinol 2.5 mg capsule 2.5 mg PO QDAY PRN sundowners 01/24/25 02/15/25 syndrome lorazepam 0.5 mg tablet (Ativan) 0.5 mg PO BID 02/15/25 02/15/25 trazodone PO 02/15/25 Previous Rx's ?Medication ?Instructions ?Recorded lisinopril 2.5 mg tablet 2.5 mg PO QDAY #30 tabs 12/06/24 sennosides 8.6 mg tablet (Senna 8.6 mg PO QDAY PRN constipation 12/06/24 Lax) #30 tabs melatonin 3 mg capsule 3 mg PO HS PRN sleep #30 caps 01/26/25 Allergies Allergy/AdvReac Type Severity Reaction Status Date / Time aspirin Allergy GI UPSET Verified 11/27/23 10:02 codeine Allergy DIFFICULTY Verified 11/27/23 10:02 BREATHING Penicillins Allergy Diarrhea Verified 11/27/23 10:02 Review of Systems Review of Systems ROS Unobtainable: unobtainable due to mental status Past Medical History Past Medical History CARDIAC: Positive Hypercholesterolemia and Hypertension RESPIRATORY: Positive Chronic Obstructive Pulmonary Disease (COPD), Pneumonia and Sleep Apnea GENITOURINARY: Positive Renal Disease MUSCULOSKELETAL: Positive Musculoskeletal Disorders ENT: Positive Cataracts and Deafness PSYCHO/SOCIAL: Positive Depression and Anxiety OTHER HISTORY: Positive Chicken Pox, Measles and Mumps Family History FAMILY HISTORY: Positive Family Cardiac Disorders Surgical History SURGICAL: Positive Ear Surgery, Cochlear Implant, Abdominal Surgery, Hysterectomy and Tubal Ligation Social History SMOKING STATUS: Never smoker ED Exam Narrative Physical exam: GENERAL APPEARANCE: Initially appeared obtunded however slightly improved, well-developed, well-nourished, no acute distress HEENT: Normocephalic, atraumatic; pupils equal, round, reactive to light; EOMI; mucous membranes pink, moist; oropharynx clear NECK: Supple LUNGS: CTABL; no wheezes, no rales, no rhonchi HEART: Regular rate, regular rhythm; normal S1, S2; no murmurs ABDOMEN: non distended; normal BS; soft, no tenderness, no guarding, no rebound; no masses, no organomegaly, no hernia BACK: no CVA tenderness EXTREMITIES: atraumatic; no edema NEUROLOGIC: obtunded; cranial nerves II-XII grossly intact; no focal sensory or motor deficits PSYCHIATRIC: appropriate mood and affect SKIN: warm, dry, normal color; no rashes Course Course Course Narrative: chest xray ordered to help determine etiology of shortness of breath. Quality Measures none Orders Category Date Time Status Hat Lining Blocker NOW Care 02/14/25 15:24 Completed EKG (ED ONLY) *Do not use* NOW Care 02/14/25 15:22 Completed EKG (ED Only) Stat Exams 02/14/25 15:22 Draft XR chest 1V portable Stat Exams 02/14/25 15:24 Completed ABG [Arterial Blood Gas] Stat Lab 02/14/25 19:03 Completed B-Type Natriuretic Peptide Stat Lab 02/14/25 15:34 Completed CBC Stat Lab 02/14/25 15:34 Completed Comprehensive Metabolic Panel Stat Lab 02/14/25 15:34 Completed Lipase Stat Lab 02/14/25 15:34 Completed Magnesium Stat Lab 02/14/25 15:34 Completed Partial Thromboplastin Time Stat Lab 02/14/25 15:34 Completed Prothrombin Time with INR Stat Lab 02/14/25 15:34 Completed Troponin I Stat Lab 02/14/25 15:34 Completed Magnesium Sulfate 2 GM Ivpb [Magnesium Sulfate Ivpb] Med 02/14/25 20:29 Discontinued 2 gm in 50 ml IV X1 BiPAP / CPAP NOW RT 02/14/25 20:23 Completed Vital Signs Vital signs: Vital Signs Temperature 97.7 F 02/14/25 15:17 Pulse Rate 96 02/14/25 15:17 Respiratory Rate 22 H 02/14/25 15:17 Blood Pressure 132/88 H 02/14/25 15:17 Pulse Oximetry (%) 100 02/14/25 15:17 Oxygen Delivery Method Nasal Cannula 02/14/25 15:17 Shortness of Breath / Dyspnea MDM Narrative MDM Narrative:: Bing Marcus am scribing for and in the presence of Dr. Mujica. Patient data External records reviewed:: [facility] previous records (I reviewed admission from 01/23/2025 through 01/28/2025 ) and EMS form Clinical information provided by:: EMS Social determinants that could affect healthcare access:: none Patient has the following chronic illnesses:: COPD on 2L home O2, pulmonary fibrosis, hypertension, hyperlipidemia How is presenting disease/condition affected by chronic disease/condition?: exacerbated by Evaluation data The following diagnostics were reviewed and interpreted by me:: lab results, radiology exam(s) and EKG tracing(s) (Sinus rhythm, LAD, HR 91, no acute ischemic changes, no STEMI ) Lab and/or radiology exams considered but not ordered:: None Interpretation Summary: Ordering Physician: Madhavi Mujica MD Date of Service: 02/14/25 Procedure(s): XR chest 1V portable Accession Number(s): [id number] cc: Sage Sorto MD; Madhavi Mujica MD~ Examination: AP chest single view Technique one AP portable upright chest single view Exam date and time: February 06, 2025 1547 hours Comparison January 23, 2025 INDICATIONS: Chest pain today FINDINGS: Again noted extensive bilateral lung opacity Normal heart size Moderate osteopenia IMPRESSION: Again noted extensive bilateral lung opacity, differential would include pneumonia superimposed upon pulmonary fibrosis, please see the CT chest report June 12, 2024 Dictated By: Sage Sorto MD Signed By: <Electronically signed by Sage Sorto MD in OV> 02/14/25 1554 Medications / Prescriptions Medications or Prescriptions considered but not ordered:: None Medication administrations:: Medication Administration History Discontinued Medications Acetaminophen (Acetaminophen 325 Mg Tablet) 650 mg PO Q6H PRN PRN Reason: Fever >101.5 Stop: 03/16/25 20:46 Hydrocodone Bitart/Acetaminophen (Hydrocodone/Apap 7.5/325 Tablet) 1 tab PO BID PRN PRN Reason: breakthrough pain or pain 4-7 Stop: 02/19/25 23:44 Albuterol/Ipratropium (Albuterol/Ipratropium (Duoneb) Rt Lyn 3 Ml Nebu) 3 ml INH Q4HRRT TOYA Stop: 03/16/25 22:59 Last Admin: 02/15/25 15:11 Dose: 3 ml Documented By: Admin: 02/15/25 10:51 Dose: 3 ml Documented By: Admin: 02/15/25 07:08 Dose: 3 ml Documented By: Admin: 02/15/25 02:50 Dose: 3 ml Documented By: Admin: 02/14/25 22:11 Dose: 3 ml Documented By: BRYSON Atorvastatin Calcium (Atorvastatin Calcium 20 Mg Tablet) 20 mg PO HS TOYA Stop: 03/17/25 20:59 Atorvastatin Calcium (Atorvastatin Calcium 20 Mg Tablet) 10 mg PO HS TOYA Stop: 03/17/25 20:59 Atorvastatin Calcium (Atorvastatin Calcium 10 Mg Tablet) 10 mg PO HS TOYA Stop: 03/17/25 20:59 Famotidine (Famotidine 20 Mg Tablet) 20 mg PO QDAY TOYA Stop: 03/17/25 08:59 Last Admin: 02/15/25 08:33 Dose: 20 mg Documented By: JOLENE Heparin Sodium (Porcine) (Heparin Sod Inj 5000 Unit/Ml Vial) 5,000 unit SC Q12H TOYA Stop: 02/28/25 20:59 Last Admin: 02/15/25 08:33 Dose: 5,000 unit Documented By: JOLENE Co-signed By: IVANA Admin: 02/14/25 21:40 Dose: 5,000 unit Documented By: SD Co-signed By: ISRAEL Magnesium Sulfate (Magnesium Sulfate Ivpb) 2 gm in 50 mls @ 25 mls/hr IV X1 ONE Stop: 02/14/25 22:28 Last Infusion: 02/14/25 23:49 Dose: Infused Documented By: Admin: 02/14/25 21:39 Dose: 25 mls/hr Documented By: SD Sodium Chloride (Ns) 1,000 mls @ 75 mls/hr IV .[id number] TOYA Stop: 03/16/25 20:59 Last Admin: 02/15/25 08:36 Dose: 75 mls/hr Documented By: Infusion: 02/15/25 08:36 Dose: Infused Documented By: Admin: 02/14/25 21:39 Dose: 75 mls/hr Documented By: SD Ceftriaxone Sodium/Dextrose (Rocephin/D5w 1gm Iv Premix) 1 gm in 50 mls @ 100 mls/hr IV QDAY TOYA Stop: 02/21/25 20:53 Last Infusion: 02/15/25 15:35 Dose: Infused Documented By: Admin: 02/15/25 08:27 Dose: 100 mls/hr Documented By: Infusion: 02/14/25 22:15 Dose: Infused Documented By: Admin: 02/14/25 21:39 Dose: 100 mls/hr Documented By: SD Azithromycin 500 mg/ Sodium (Chloride) 250 mls @ 250 mls/hr IV QDAY@2100 TOYA Stop: 02/22/25 20:59 Azithromycin 500 mg/ Sodium (Chloride) 250 mls @ 250 mls/hr IV X1 ONE Stop: 02/14/25 21:59 Last Infusion: 02/14/25 22:55 Dose: Infused Documented By: Admin: 02/14/25 21:40 Dose: 250 mls/hr Documented By: SD Morphine Sulfate (Morphine Sulfate Iv Drip 100mg/100ml) 100 mls @ 1 mls/hr IV .Q24H PRN; Protocol PRN Reason: PAIN (COMFORT CARE) Stop: 02/20/25 18:54 Last Admin: 02/15/25 19:25 Dose: 1 mg/hr, 1 mls/hr Documented By: KATHLEEN Co-signed By: LUPILLO Ketorolac Tromethamine (Ketorolac Inj 30 Mg/Ml Vial) 30 mg IVP X1 ONE Stop: 02/15/25 00:51 Last Admin: 02/15/25 01:51 Dose: Not Given Documented By: KATHLEEN Non-Admin Reason: Cancelled by Provider Lidocaine (Lidocaine 5% 1 Patch) 1 patch TOP QDAY TOYA Stop: 03/17/25 15:29 Last Admin: 02/18/25 09:00 Dose: Not Given Documented By: Non-Admin Reason: family refuse Admin: 02/17/25 08:38 Dose: Not Given Documented By: NE Non-Admin Reason: family refused patch wants patient to rest Admin: 02/16/25 09:00 Dose: Not Given Documented By: BR Non-Admin Reason: Patient Asleep Admin: 02/15/25 15:42 Dose: 1 patch Documented By: BR Lorazepam (Lorazepam 2 Mg/Ml Vial) 1 mg IVP X1 PRN PRN Reason: ANXIETY Stop: 02/20/25 15:25 Lorazepam (Lorazepam 2 Mg/Ml Vial) 1 mg IVP Q6HR PRN PRN Reason: ANXIETY Stop: 02/20/25 15:25 Last Admin: 02/18/25 08:29 Dose: 1 mg Documented By: Admin: 02/18/25 00:12 Dose: 1 mg Documented By: Admin: 02/17/25 15:19 Dose: 1 mg Documented By: Admin: 02/17/25 07:02 Dose: 1 mg Documented By: Admin: 02/16/25 20:05 Dose: 1 mg Documented By: Admin: 02/16/25 04:41 Dose: 1 mg Documented By: Admin: 02/15/25 15:55 Dose: 1 mg Documented By: JOLENE Lorazepam (Lorazepam 2 Mg/Ml Vial) 1 mg IVP X1 PRN PRN Reason: BREAKTHRU ANXIETY Stop: 02/20/25 15:25 Last Admin: 02/15/25 16:38 Dose: 1 mg Documented By: JOLENE Melatonin (Melatonin 3 Mg Tablet) 3 mg PO X1 ONE Stop: 02/15/25 01:30 Last Admin: 02/15/25 01:41 Dose: 3 mg Documented By: AM Morphine Sulfate (Morphine Sulf Inj 10 Mg/Ml Vial) 1 mg IVP X1 ONE Stop: 02/15/25 14:15 Last Admin: 02/15/25 14:19 Dose: 1 mg Documented By: BR Morphine Sulfate (Morphine Sulf Inj 10 Mg/Ml Vial) 2 mg IVP X1 ONE Stop: 02/15/25 15:27 Last Admin: 02/15/25 15:42 Dose: 2 mg Documented By: BR Morphine Sulfate (Morphine Sulf Inj 10 Mg/Ml Vial) 2 mg IVP Q30M PRN PRN Reason: PAIN Stop: 02/20/25 15:25 Last Admin: 02/18/25 09:46 Dose: 2 mg Documented By: Admin: 02/18/25 08:38 Dose: 2 mg Documented By: Admin: 02/17/25 15:26 Dose: 2 mg Documented By: Admin: 02/17/25 07:06 Dose: 2 mg Documented By: MALATHI Comments: comfort care Admin: 02/15/25 18:43 Dose: 2 mg Documented By: Admin: 02/15/25 17:52 Dose: 2 mg Documented By: JOLENE Ondansetron HCl (Ondansetron Odt 4 Mg Tabrap) 4 mg PO Q6HR PRN PRN Reason: nausea Stop: 03/17/25 15:25 Prednisone (Prednisone 20 Mg Tablet) 40 mg PO QDAY TOYA Stop: 03/16/25 23:14 Last Admin: 02/15/25 08:28 Dose: 40 mg Documented By: Admin: 02/15/25 01:25 Dose: 40 mg Documented By: AM Comments: Patient was npo. Had to do swallow screen first per MD. Scopolamine (Scopolamine 1 Mg Tdsy) 1 mg TOP Q3D TOYA Stop: 03/17/25 15:29 Last Admin: 02/17/25 15:11 Dose: 1 mg Documented By: ALEXANDRIA Comments: accidentally took off Admin: 02/15/25 15:42 Dose: 1 mg Documented By: JOLENE Sennosides (Senna Tablet) 1 tab PO QDAY TOYA; Protocol Stop: 03/17/25 08:59 Last Admin: 02/15/25 08:28 Dose: 1 tab Documented By: JOLENE Sodium Chloride (Sodium Chloride Rt 10% 15 Ml Nebu) 5 ml INH X1 ONE Stop: 02/14/25 23:23 Last Admin: 02/15/25 07:08 Dose: Not Given Documented By: LISA Non-Admin Reason: not needed See above Consultations Consultation(s) initiated? (list below): No Diagnosis Shortness of Breath Differential Diagnosis: acute exacerbation of chronic obstructive airways disease, congestive heart failure, community acquired pneumonia, asthma with exacerbation and other (Viral illness) Most likely diagnosis given after review of the tests above:: Hypercapneic respiratory failure Admission Indicated Admission indicated?: not indicated Explain why admission is indicated or not indicated:: Patient signed out pending ABG. Admission Request Was there a request for admission?: No Disposition Plan Disposition Plan: other (specify) (1800: Patient signed out to Dr. Alcaraz pending ABG) Discharge Plan Plan Patient Disposition: Admit Acute Care w/in Hospital Problem List Clinical Impression: COPD exacerbation
[2025-02-14 16:02] LABS: INR 1.2 (0.9-1.3); Partial Thromboplastin Time 23.6 Seconds (22.0-36.0)
[2025-02-14 16:05] LABS: B-Type Natriuretic Peptide 118 pg/mL (0-100)
[2025-02-14 17:01] LABS: Alanine Aminotransferase < 7 U/L (10-49); Albumin, Serum 3.7 gm/dL (3.4-4.8); Albumin/Globulin Ratio 1.2 (1.2-2.2); Alkaline Phosphatase 63 U/L (46-116); Anion Gap 7 (7-16); Aspartate Amino Transferase 24 U/L (0-34); BUN/Creatinine Ratio 18 Ratio (12-20); Bilirubin,Total 0.7 mg/dL (0.3-1.2); Blood Urea Nitrogen 11 mg/dL (9-23); Calcium 9.9 mg/dL (8.3-10.6); Calcium (Corrected) 10.1 mg/dL (8.5-10.1); Carbon Dioxide > 40.0 mMol/L (20.0-31.0); Chloride 89 mMol/L (98-107); Creatinine (Component) 0.6 mg/dL (0.6-1.3); Estimated Creatinine Clearance 65.4 mL/min (>60); Glucose 154 mg/dL (74-106); Lipase 31 U/L (12-53); Magnesium 1.4 mg/dL (1.6-2.6); Osmolality,Calculated 274 (275-295); Potassium 4.5 mMol/L (3.4-5.1); Sodium 136 mMol/L (136-145); Total Protein 6.7 gm/dL (5.7-8.2); Troponin I < 0.020 ng/mL (0.0-0.045); eGFR > 60 See Note
--- NOTE | 2025-02-14 18:34 | EDNOTE_ITS ---
Emergency Room Addendum Addendum Narrative: 1800: Care assumed from Dr. Mujica, the previous shift emergency physician. Past medical, surgical, social and family history reviewed. Vitals and home medications reviewed. I will assume the care of the patient at this time, pending remainder of labs and final disposition. Please refer to the emergency department record for history and examination from initial visit.? Physical exam by me shows patient under no acute distress at this time. At this time, patient sleeping but arousable and when awake recognizes her son. No accessory muscle use. 84 year old female with past medical history significant for COPD on 2L home O2, pulmonary fibrosis, hypertension, hyperlipidemia presents to the Emergency Department BIBA with complaint of shortness of breath/ respiratory failure today. Per medics, son on scene reported finding the patient lying on the bathroom floor unresponsive. [facility] fire department felt pulses however noted patient to have agonal respirations and began bagging via BVM. ABG 7.34 2024: Respiratory therapist coming to bedside. Dr. Epperson aware and will probably admit. 2046: Discussed test HPI, PMHx, lab, radiology results and/or management with hospitalist Dr. Epperson. Will admit for further evaluation and management. Accepts patient for admission. Diagnosis: - COPD exacerbation
[2025-02-14 19:08] LABS: Base Excess 18 (-3-3); HCO3 48 mEq/L (20-26); Inspired O2, VO2 Liters 2 L/min; Inspired Oxygen, FIO2 21 %; O2 Saturation 99 % (91-98); PCO2 89 mmHg (32.0-48.0); PO2 98 mmHg (83-108); pH, Arterial 7.34 (7.35-7.45)
[2025-02-14 19:09] LABS: Allen Test Performed/OK; Puncture Site Left Radial
--- NOTE | 2025-02-14 20:44 | EVENTNT_ITS ---
Documentation for date of: 02/14/25 Event Note Event Note: An 84-year-old female presented to the ER with the chief complaint of altered mental status and unresponsiveness following an episode of shaking. According to the patient?s oldest son, she was previously at her baseline?alert and verbal?when he assisted her to the restroom using a walker. Shortly after standing from the toilet, she began shaking throughout her body, which was a new event. She then became unresponsive and collapsed. CPR was initiated by the son, who performed chest compressions for approximately 12 minutes until EMS arrived. The patient remained unresponsive but exhibited weak respiratory effort. She use s continuous home oxygen via concentrator due to pulmonary fibrosis and was recently hospitalized approximately two weeks ago for pneumonia. Follow-up imaging and cardiac testing were planned but delayed due to a malfunctioning portable oxygen concentrator; transportation was scheduled for the following week. The patient has a history of COPD on 2.5?3 L home O2, pulmonary fibrosis, HTN, HLD, and dementia. Social history includes 12/06 home care provided by family, with use of diapers, hospital bed, and total assistance with feeding, hygiene, and mobility. She is fully dependent for all ADLs. Code status is unclear due to a previously documented DNR; the family identified her daughters as current decision-makers and they were en route at the time of evaluation. Functional baseline is non-independent with cognitive fluctuations. In the ER, vital signs recorded as temp 97.7 F, HR 96, RR 22, BP 132/88 mmHg. Labs revealed WBC 4.3, Hb 11.5, Plt 131, Na 136, K 4.5, Cl 89, CO2 >40, BUN 11, Cr 0.6, Glucose 154, Mag 1.4, BNP 118. ABG showed pH 7.34, pCO2 89, pO2 98, HCO2 48. CXR showed extensive bilateral lung opacities, consistent with pneumonia superimposed on pulmonary fibrosis. EKG sinus rhythm. The patient was started on BiPAP and admitted. Acute on Chronic Hypoxic Respiratory Failure #Assessment: - Pulmonary fibrosis, COPD on home O2. - ABG: pH 7.34, pCO2 89, pO2 98, HCO3 48, chronic compensated hypercapnia with acute worsening. - Extensive bilateral opacities on CXR #Plan: - Continue BiPAP with close monitoring of ABG and respiratory status. - Pulmonary hygiene, suctioning, positioning. - Clarify code status with family. Community-Acquired Pneumonia #Assessment: - Bilateral infiltrates on CXR, elevated CO2, history of recent pneumonia. - unctional decline, hypoxia, and acute encephalopathy. #Plan: - Start empiric broad-spectrum antibiotics (ceftriaxone + azithromycin). - Monitor respiratory status. Orthostatic Hypotension Syncope #Assessment: - Syncopal episode after rising from toilet, witnessed by family. - Baseline functional impairment and frailty. - CPR performed for ~12 minutes. - Patient is talking now. #Plan: - Monitor orthostatic vitals. - Review medications for antihypertensives that may contribute. - Hydration support with IV fluids. Chronic Obstructive Pulmonary Disease #Assessment: - On 2.5?3 L home O2, history of pulmonary fibrosis. - Currently on BiPAP for respiratory support. #Plan: - Continue BiPAP. - Avoid over-oxygenation; target SpO2 88?92%. - Resume bronchodilators. Hypomagnesemia #Assessment: - Serum Mg 1.4 mg/dL. #Plan: - Replete magnesium IV, monitor for arrhythmias. - Recheck levels after repletion. Hypertension #Assessment: - History of HTN, currently normotensive. #Plan: - Resume home regimen when hemodynamically appropriate. Hyperlipidemia #Assessment: - Chronic condition, no acute concerns. #Plan: - Continue statins.
--- NOTE | 2025-02-14 21:35 | PD.RESHP ---
Documentation for date of: 02/14/25 HPI History of Present Illness History of present illness: HPI is limited as patient is currently on BiPAP is poor historian and most of history obtained through chart review and speaking with family Gillian is a 84 y/o female with PMHx of chronic respiratory failure on 4L home O2, pulmonary fibrosis, hypertension, and hyperlipidemia, and dementia who comes in for an evaluation of shortness of breath while at home using the restroom. Patient's son said that patient was using the restroom and was helping her and then patient had felt weak and became more unresponsive. He also said that the patient stopped having chest rise in which he initiated CPR, however he does not know if that the patient lost a pulse. He also told another family member to call 911. He says he did chest compressions for about 10 to 12 minutes. Of note patient was discharged a couple of weeks ago for similar symptoms of chronic respiratory failure. Patient denies any recent patient sick contacts or travel. Patient has been taking medicines as prescribed and has been trying to go to follow-up appointments. Patient's family is aware that hospice has been discussed and they have been having conversations with her family regards to goals of care for patient. Patient's family reports that she can be very alert and awake at times and however can also be less responsive and altered at times and if there is throughout the day. Family says that she takes Ativan and trazodone sometimes at home to help her sleep and be less anxious. She uses 4 L of oxygen at home. ED course: Patient arrived to the ED temperature of 97.7, heart rate 96, respiratory 22, blood pressure 132/88, saturating 100% on nasal cannula. She worked up and found to have a sodium of 136, potassium 4.5, bicarb over 40, BUN/creatinine 11 and 0.6 respectively, glucose 154, white count 4.3, hemoglobin 11.5, troponin negative x 1, BNP 118, magnesium 1.4, ABG pH 7.34, pCO2 89, bicarb 48. Checks x-ray showed extensive bilateral lung opacities. EKG showed normal sinus rhythm with left atrial dilation and ventricular hypertrophy. Patient was given DuoNeb x 1 azithromycin x 1 Rocephin x 1 magnesium 2 g, started on 75 cc/hour of normal saline. PMHx: As above Surgeries: Multiple surgeries including cholecystectomy, possible hysterectomy, family is unaware of all this review she has had Meds: Simvastatin, senna, melatonin, lisinopril, Tyler, Pepcid, and Dronabinol Allergies: Aspirin, codeine, penicillins Family Hx: Limited family history Social Hx: [facility] ([facility] No smoking history, no alcohol history, no history of oral or IV drug use. 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 Lives with family who all take care of her. Review of Systems Review of Systems Narrative Review of Systems: ROS is limited as patient is currently on BiPAP and small historian Exam Vital Signs Temp Pulse Resp BP Pulse Ox O2 Del Method O2 Flow Rate 97.4 F 97 34 H 168/73 H 100 Nasal Cannula 2 02/14/25 18:22 02/14/25 20:34 02/14/25 20:34 02/14/25 18:22 02/14/25 20:34 02/14/25 18:22 02/14/25 18:22 FiO2 35 02/14/25 20:34 Narrative Exam General: AAOx2, in mild distress, frail elderly woman, little musculature. HEENT: Conjunctiva clear, EOMI, PERRLA, poor dentition. Cardiovascular: Ejection SM heard over YONATAN, radial pulses +2 bilat. Pulmonary: On BiPAP, 12/5, rate of 20, over breathing on biPAP. GI: No tenderness to light or deep palpitation, no guarding, rigidity, rebound tenderness or distension. Extremities: No presence of trace or pitting edema in lower extremities bilaterally, dorsalis pedis pulses +2 bilaterally, diffuse areas of purpura throughout extremities. Neuro: AAOx2, no focal motor or sensory deficits in the UE or LE bilat. Psych: Slightly cooperative. Results: Labs 02/14/25 15:34 02/14/25 15:34 Labs: Short CBC 02/14/25 Range/Units 15:34 WBC 4.3 (3.6-11.0) Thou/mm3 Hgb 11.5 L (12.0-16.0) g/dL Hct 35.2 L (36.0-46.0) % Plt Count 131 L D (140-440) Thou/mm3 BMP 02/14/25 15:34 Sodium 136 Potassium 4.5 Chloride 89 L Carbon Dioxide > 40.0 H BUN 11 Creatinine 0.6 Glucose 154 H Calcium 9.9 Cardiac Enzymes 02/14/25 Range/Units 15:34 Troponin I < 0.020 (0.0-0.045) ng/mL Liver Function 02/14/25 Range/Units 15:34 Total Bilirubin 0.7 (0.3-1.2) mg/dL AST 24 (0-34) U/L ALT < 7 L (10-49) U/L Alkaline Phosphatase 63 (46-116) U/L Albumin 3.7 (3.4-4.8) gm/dL ABG Interpretation ABG results: 02/14/25 19:03 ABG pH 7.34 L ABG pCO2 89 H* ABG pO2 98 ABG HCO3 48 H ABG O2 Saturation 99 H ABG Base Excess 18 H Quality Measures Quality Measures none Advance care planning discussed with:: patient and child Medications Home Medications and Allergies Home Medications ?Medication ?Instructions ?Recorded ?Confirmed ?Type simvastatin 20 mg tablet 1 tab PO HS ##0 10/22/13 12/04/24 History famotidine 20 mg tablet 20 mg PO QDAY 12/04/24 12/04/24 History hydrocodone 7.5 mg-acetaminophen 1 tab PO BID PRN Pain 12/04/24 01/24/25 History 300 mg tablet dronabinol 2.5 mg capsule 2.5 mg PO QDAY PRN sundowners 01/24/25 01/24/25 History syndrome Allergies Allergy/AdvReac Type Severity Reaction Status Date / Time aspirin Allergy GI UPSET Verified 11/27/23 10:02 codeine Allergy DIFFICULTY Verified 11/27/23 10:02 BREATHING Penicillins Allergy Diarrhea Verified 11/27/23 10:02 Visit Medications Acetaminophen (Acetaminophen 325 Mg Tablet) 650 mg PO Q6H PRN PRN Reason: Fever >101.5 Stop: 03/16/25 20:46 Albuterol/Ipratropium (Albuterol/Ipratropium (Duoneb) Rt Lyn 3 Ml Nebu) 3 ml INH Q4HRRT TOYA Stop: 03/16/25 22:59 Heparin Sodium (Porcine) (Heparin Sod Inj 5000 Unit/Ml Vial) 5,000 unit SC Q12H TOYA Stop: 02/28/25 20:59 Magnesium Sulfate (Magnesium Sulfate Ivpb) 2 gm in 50 mls @ 25 mls/hr IV X1 ONE Stop: 02/14/25 22:28 Sodium Chloride (Ns) 1,000 mls @ 75 mls/hr IV .[id number] [facility] Stop: 03/16/25 20:59 Ceftriaxone Sodium/Dextrose (Rocephin/D5w 1gm Iv Premix) 1 gm in 50 mls @ 100 mls/hr IV QDAY TOYA Stop: 02/21/25 20:53 Azithromycin 500 mg/ Sodium (Chloride) 250 mls @ 250 mls/hr IV QDAY TOYA Stop: 02/21/25 20:53 Azithromycin 500 mg/ Sodium (Chloride) 250 mls @ 250 mls/hr IV X1 ONE Stop: 02/14/25 21:59 Assessment & Plan Plan Assessment Gillian is a 84 y/o female with PMHx of chronic respiratory failure on 4L home O2, pulmonary fibrosis, hypertension, and hyperlipidemia, and dementia who is admitted for acute on chronic hypercapnic hypoxic respiratory failure #Acute on Chronic hypercapnic hypoxic Respiratory Failure secondary to #History of pulmonary fibrosis Pulmonary fibrosis, 4 L on home O2. Although in restrictive lung disease pts are less likely to be chronic retainers compared to obstructive lung disease, Pt is likely chronic retainer of CO2 due to severity of her pulmonary fibrosis Unsure if pt has had PFTs ABG: pH 7.34, pCO2 89, pO2 98, HCO3 48, chronic compensated hypercapnia with acute worsening. Extensive bilateral opacities on CXR Chest CT in 2023 shows severe pulmonary fibrosis Unsure if pt follows lung doctor Pulmonary fibrosis appears to be severe, family is aware and is possibly considering hospice due to chronic respiratory failure for patient Plan: - Continue BiPAP with close monitoring of ABG and respiratory status. - Pulmonary hygiene, suctioning, positioning. - Chest physio - Referral to respiratory therapy - Duonebs Q4HRRT - Prednisone 40 mg qday - Consider Pulmonary consult #Community-Acquired Pneumonia Bilateral infiltrates on CXR, elevated CO2, history of recent pneumonia. Functional decline, hypoxia, and acute encephalopathy. Extensive bilateral opacities on CXR Was discharged 2 weeks ago for PNA Plan: - Start empiric broad-spectrum antibiotics (ceftriaxone + azithromycin). - Monitor respiratory status. - Follow up MRSA - Sputum culture #Orthostatic Hypotension Syncope Syncopal episode after rising from toilet, witnessed by family. Baseline functional impairment and frailty. CPR performed for ~12 minutes. Patient is talking now Pt unlikely did not code and likely had syncopal episode, however had CPR done Plan: - Monitor orthostatic vitals. - Review medications for antihypertensives that may contribute. - Hydration support with IV fluids - Pain management as pt did have CPR done #Hypomagnesemia Serum Mg 1.4 mg/dL. Plan: - Replete magnesium IV, monitor for arrhythmias. - Recheck levels after repletion. #Hypertension #Hyperlipidemia Chronic Plan: ? Holding blood pressure medicines as blood pressures soft at this point ? Resumed home Lipitor 10 mg at bedtime ? Will f/u Lipid panel #Health Maintenance Disposition: Telemetry DVT prophylaxis: Heparin GI prophylaxis: Pepcid Diet: Pending Swallow eval CODE STATUS: DNR, selective treatment Patient seen and care discussed with my attending physician, Dr. Zhou Carver, PGY-1 Attending Provider Attestation/Addendum Pt was evaluated and plan formulated together with the housestaff team. I have reviewed the residents note above and agree with most of its content. Please refer to the residents note for additional details.
[2025-02-14] MEDS: cefTRIAXone/D5w 1gm IV premix 1 GM/50 ML BAG IV (21:39)
[2025-02-14] MEDS: SODIUM CHLORIDE 0.9% 1000 ML 1,000 ML 75 ML IV (21:39)
[2025-02-14] MEDS: Magnesium Sulfate 2 GM Ivpb 2 GM/50 ML BAG IV (21:39)
[2025-02-14] MEDS: HEPARIN SOD INJ 5000 UNIT/ML VIAL SC (21:40)
[2025-02-14] MEDS: AZITHROMYCIN INJ 500 MG in SODIUM CHLORIDE 0.9% 250 ML 250 ML 250 MG IV (21:40)
[2025-02-14] MEDS: ALBUTEROL/IPRATROPIUM (Duoneb) RT SOL 3 ML NEBU INH (22:11)
[2025-02-14 22:13] LABS: Base Excess 17 (-3-3); HCO3 46 mEq/L (20-26); Inspired Oxygen, FIO2 35 %; O2 Saturation 99 % (91-98); PCO2 82 mmHg (32.0-48.0); PO2 99 mmHg (83-108); pH, Arterial 7.36 (7.35-7.45)
[2025-02-14 22:15] LABS: Allen Test Not Performed; Puncture Site Left Radial
[2025-02-15] VITALS (12 sets, daily range): BP systolic 137–165; BP diastolic 67–110; PULSE 72–125; RESP 15–32; TEMP 36.1–36.8; O2SAT 94–100
--- NOTE | 2025-02-15 00:05 | PC.NURSE ---
Lorie called. pt taken to on monitor.
[2025-02-15 00:17] LABS: Base Excess 15 (-3-3); HCO3 44 mEq/L (20-26); Inspired O2, VO2 Liters 4 L/min; Inspired Oxygen, FIO2 21 %; O2 Saturation 101 % (91-98); PO2 218 mmHg (83-108); pH, Arterial 7.34 (7.35-7.45)
[2025-02-15 00:29] LABS: PCO2 82 mmHg (32.0-48.0)
[2025-02-15 00:30] LABS: Allen Test Performed/OK; Puncture Site Left Radial
--- NOTE | 2025-02-15 00:58 | PC.RT ---
MD Carver notified and aware of ABG results and elevated Co2. does not wish to put PT back on BiPAP. PT also unable to produce Sputum.
--- NOTE | 2025-02-15 01:00 | PC.NURSE ---
MD Carver is in the room assessing patient. Patient did pass swallow screen and I let MD carver know while he is in the room. He said he will order a diet for patient
--- NOTE | 2025-02-15 01:00 | PC.NURSE ---
Family said they will bring her home meds in the AM for the med rec
[2025-02-15] MEDS: predniSONE 20 MG TABLET 40 MG PO ×2 (01:25→08:28)
[2025-02-15] MEDS: MELATONIN 3 MG TABLET PO (01:41)
--- NOTE | 2025-02-15 02:00 | PC.NURSE ---
Orthostatic vitals could not be done because patient desatted to 80% with activity
[2025-02-15] MEDS: ALBUTEROL/IPRATROPIUM (Duoneb) RT SOL 3 ML NEBU INH ×4 (02:50→15:11)
[2025-02-15 06:08] LABS: Basophils % (Auto) 0 % (0-2.5); Eosinophils % (Auto) 0 % (0-10); Hematocrit 34.9 % (36.0-46.0); Hemoglobin 11.7 g/dL (12.0-16.0); Immature Granulocytes % (Auto) 0 % (0-0); Immature Granulocytes Auto 0.02 Thou/mm3 (0.00-0.00); Lymphocytes # (Auto) 0.7 Thou/mm3 (1.0-4.8); Lymphocytes % (Auto) 8 % (10-50); Mean Corpuscular HGB Conc 33.5 g/dl (31.0-37.0); Mean Corpuscular Hemoglobin 32.7 pg (25.0-35.0); Mean Corpuscular Volume 98 fL (80-100); Monocytes # (Auto) 0.1 Thou/mm3 (0.0-0.8); Monocytes % (Auto) 2 % (0-12); Neutrophils # (Auto) 7.8 Thou/mm3 (1.8-7.7); Neutrophils % (Auto) 91 % (37-80); Nucleated Red Blood Cell % 0 /100 WBC (0); Platelet Count 127 Thou/mm3 (140-440); RDW Standard Deviation 41.5 fL (36.4-46.3); Red Blood Count 3.58 Miln/mm3 (4.00-5.20); White Blood Count 8.7 Thou/mm3 (3.6-11.0)
[2025-02-15 06:14] LABS: Anion Gap 8 (7-16); BUN/Creatinine Ratio 20 Ratio (12-20); Blood Urea Nitrogen 10 mg/dL (9-23); Calcium 9.6 mg/dL (8.3-10.6); Carbon Dioxide 37.2 mMol/L (20.0-31.0); Cardiac Risk Estimate 1.9 RATIO (3.7-5.6); Chloride 92 mMol/L (98-107); Cholesterol 114 mg/dL (132-200); Creatinine (Component) 0.5 mg/dL (0.6-1.3); Estimated Creatinine Clearance 78.5 mL/min (>60); Glucose 95 mg/dL (74-106); HDL Cholesterol 60 mg/dL (40-60); LDL Cholesterol,Calculated 40 mg/dL (0-130); Magnesium 1.8 mg/dL (1.6-2.6); Osmolality,Calculated 272 (275-295); Potassium 3.8 mMol/L (3.4-5.1); Sodium 137 mMol/L (136-145); Triglycerides 72 mg/dL (30-150); Troponin I 0.025 ng/mL (0.0-0.045); eGFR > 60 See Note
[2025-02-15 06:33] LABS: Glucose Estimated Average 85 mg/dL (80-131); Hemoglobin A1C 4.6 % Hgb (4.8-6.0)
[2025-02-15] MEDS: cefTRIAXone/D5w 1gm IV premix 1 GM/50 ML BAG IV (08:27)
[2025-02-15] MEDS: SENNA TABLET 1 TAB PO (08:28)
[2025-02-15] MEDS: HEPARIN SOD INJ 5000 UNIT/ML VIAL SC (08:33)
[2025-02-15] MEDS: FAMOTIDINE 20 MG TABLET PO (08:33)
[2025-02-15] MEDS: SODIUM CHLORIDE 0.9% 1000 ML 1,000 ML 75 ML IV (08:36)
--- NOTE | 2025-02-15 10:23 | PC.SS ---
--SS met with patient who is altered. Patient had a sitter at bedside. SS phoned daughter, Frida, with no answer. SS spoke to daughter, Kaylene, who provided a breif background of patient. Kaylene states patient has hx: Dementia. She resides with her son, Tej. Patient does not use any DME. She does use 02 ([employer]) @ 4L continuous. Patient has family provide transportation assistance for all appointments. Patient PCP: Dr. Monroy @ [facility]. Last appt. is every last week. Patient is a DNR. Pharmacy: [facility]. Patient's alt medical decision maker is her daughter, Bere and secondary is daughter, Kaylene. Kaylene states the discharge plan is for short term SNF. Family preference is 1. [facility] and [facility] alt medical decision maker: Bere Palacios, daughter,
--- NOTE | 2025-02-15 12:55 | ESPR_ITS ---
<Statement entered by Low Greco MD - 02/15/25 17:13> I have discussed and was present for the essential components of the history, physical examination, diagnosis, and treatment plan with the resident. I agree with the patient's care as documented by the resident and amended herein by me. Low Greco MD FACP. Documentation for date of: 02/15/25 Subjective Subjective Interval history: Patient seen and examined this a.m. Admitted overnight. No complaints. Appears tachypnic, AOx1 (self). 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 Sensation grossly intact. Objective Labs 02/15/25 04:26 02/15/25 04:26 Labs: Laboratory Results - last 24 hr 02/14/25 02/14/25 02/14/25 15:34 19:03 22:07 WBC 4.3 RBC 3.54 L Hgb 11.5 L Hct 35.2 L MCV 99 MCH 32.5 MCHC 32.7 RDW Std Deviation 42.2 Plt Count 131 L D Neut % (Auto) 68 Lymph % (Auto) 24 Hudson % (Auto) 6 Eos % (Auto) 1 Baso % (Auto) 1 Neut # (Auto) 2.9 Lymph # (Auto) 1.0 Hudson # (Auto) 0.3 Eos # (Auto) 0.1 Baso # (Auto) 0.0 Immature Gran # (Auto) 0.00 Absolute Nucleated RBC 0.00 Immature Gran % 0 Nucleated RBC % 0 PT 13.0 H INR 1.2 APTT 23.6 Puncture Site Left Radial Left Radial ABG pH 7.34 L 7.36 ABG pCO2 89 H* 82 H* ABG pO2 98 99 ABG HCO3 48 H 46 H ABG O2 Saturation 99 H 99 H ABG Base Excess 18 H 17 H Oxygen Liter Flow 2 FiO2 21 35 Sodium 136 Potassium 4.5 Chloride 89 L Carbon Dioxide > 40.0 H Anion Gap 7 BUN 11 Creatinine 0.6 Estim Creat Clear Calc 65.4 eGFR > 60 BUN/Creatinine Ratio [address] Glu mg/dL Hemoglobin A1c Calculated Osmolality 274 L Calcium 9.9 Corrected Calcium 10.1 Magnesium 1.4 L Total Bilirubin 0.7 AST 24 ALT < 7 L Alkaline Phosphatase 63 Troponin I < 0.020 B-Natriuretic Peptide 118 H Total Protein 6.7 Albumin 3.7 Globulin 3.0 Albumin/Globulin Ratio 1.2 Triglycerides Cholesterol LDL Cholesterol, Calc HDL Cholesterol Cholesterol/HDL Ratio Lipase 31 TSH 02/15/25 02/15/25 00:10 04:26 WBC 8.7 D RBC 3.58 L Hgb 11.7 L Hct 34.9 L MCV 98 MCH 32.7 MCHC 33.5 RDW Std Deviation 41.5 Plt Count 127 L Neut % (Auto) 91 H Lymph % (Auto) 8 L Hudson % (Auto) 2 Eos % (Auto) 0 Baso % (Auto) 0 Neut # (Auto) 7.8 H Lymph # (Auto) 0.7 L Hudson # (Auto) 0.1 Eos # (Auto) 0.0 Baso # (Auto) 0.0 Immature Gran # (Auto) 0.02 H Absolute Nucleated RBC 0.00 Immature Gran % 0 Nucleated RBC % 0 PT INR APTT Puncture Site Left Radial ABG pH 7.34 L ABG pCO2 82 H* ABG pO2 218 H D ABG HCO3 44 H ABG O2 Saturation 101 H ABG Base Excess 15 H Oxygen Liter Flow 4 FiO2 21 Sodium 137 Potassium 3.8 D Chloride 92 L Carbon Dioxide 37.2 H Anion Gap 8 BUN 10 Creatinine 0.5 L Estim Creat Clear Calc 78.5 eGFR > 60 BUN/Creatinine Ratio [address] Glu mg/dL 85 Hemoglobin A1c 4.6 L Calculated Osmolality 272 L Calcium 9.6 Corrected Calcium Magnesium 1.8 Total Bilirubin AST ALT Alkaline Phosphatase Troponin I 0.025 B-Natriuretic Peptide Total Protein Albumin Globulin Albumin/Globulin Ratio Triglycerides 72 Cholesterol 114 L LDL Cholesterol, Calc 40 HDL Cholesterol 60 Cholesterol/HDL Ratio 1.9 L Lipase TSH 1.20 ABG Interpretation ABG results: 02/14/25 02/14/25 02/15/25 19:03 22:07 00:10 ABG pH 7.34 L 7.36 7.34 L ABG pCO2 89 H* 82 H* 82 H* ABG pO2 98 99 218 H D ABG HCO3 48 H 46 H 44 H ABG O2 Saturation 99 H 99 H 101 H ABG Base Excess 18 H 17 H 15 H Quality Measures Quality Measures none Advance care planning discussed with:: patient Assessment & Plan Assessment Current Active Medications: Generic Name Dose Route Start Last Admin Trade Name Freq PRN Reason Stop Dose Admin Acetaminophen 650 mg 02/14/25 20:47 Acetaminophen 325 Mg Tablet PO 03/16/25 20:46 Q6H PRN Fever >101.5 Hydrocodone Bitart/Acetaminophen 1 tab 02/14/25 23:34 Hydrocodone/Apap 7.5/325 Tablet PO 02/19/25 23:44 BID PRN breakthrough pain or pain 4-7 Albuterol/Ipratropium 3 ml 02/14/25 23:00 02/15/25 10:51 Albuterol/Ipratropium (Duoneb) Rt Lyn 3 Ml Nebu INH 03/16/25 22:59 3 ml Q4HRRT TOYA Administration Atorvastatin Calcium 10 mg 02/15/25 21:00 Atorvastatin Calcium 10 Mg Tablet PO 03/17/25 20:59 HS TOYA Famotidine 20 mg 02/15/25 09:00 02/15/25 08:33 Famotidine 20 Mg Tablet PO 03/17/25 08:59 20 mg QDAY TOYA Administration Heparin Sodium (Porcine) 5,000 unit 02/14/25 21:00 02/15/25 08:33 Heparin Sod Inj 5000 Unit/Ml Vial SC 02/28/25 20:59 5,000 unit Q12H TOYA Administration Sodium Chloride 1,000 mls @ 75 mls/hr 02/14/25 21:00 02/15/25 08:36 Ns IV 03/16/25 20:59 75 mls/hr .[id number] TOYA Administration Ceftriaxone Sodium/Dextrose 1 gm in 50 mls @ 100 mls/hr 02/14/25 20:54 02/15/25 08:27 Rocephin/D5w 1gm Iv Premix IV 02/21/25 20:53 100 mls/hr QDAY TOYA Administration Azithromycin 500 mg/ Sodium 250 mls @ 250 mls/hr 02/15/25 21:00 Chloride IV 02/22/25 20:59 QDAY@2100 TOYA Prednisone 40 mg 02/14/25 23:15 02/15/25 08:28 Prednisone 20 Mg Tablet PO 03/16/25 23:14 40 mg QDAY TOYA Administration Sennosides 1 tab 02/15/25 09:00 02/15/25 08:28 Senna Tablet PO 03/17/25 08:59 1 tab QDAY TOYA Administration Protocol Plan Assessment Gillian is a 84 y/o female with PMHx of chronic respiratory failure on 4L home O2, pulmonary fibrosis, hypertension, and hyperlipidemia, and dementia who is admitted for acute on chronic hypercapnic hypoxic respiratory failure #Acute on Chronic hypercapnic hypoxic Respiratory Failure secondary to #History of ILD Assessment: 4 L on home O2. Although in restrictive lung disease pts are less likely to be chronic retainers compared to obstructive lung disease, Pt is likely chronic retainer of CO2 due to severity of her pulmonary fibrosis Unsure if pt has had PFTs ABG: pH 7.34, pCO2 89, pO2 98, HCO3 48, chronic compensated hypercapnia with acute worsening. Extensive bilateral opacities on CXR Chest CT in 2023 shows severe pulmonary fibrosis Unsure if pt follows lung doctor Pulmonary fibrosis appears to be severe, family is aware and is possibly considering hospice due to chronic respiratory failure for patient Plan: - Duonebs Q4HRRT - Prednisone 40 mg qday - if hypoxic, consider HFNC - Goals of care discussion #Community-Acquired Pneumonia Assessment: Bilateral infiltrates on CXR, elevated CO2, history of recent pneumonia. Functional decline, hypoxia, and acute encephalopathy. Extensive bilateral opacities on CXR Was discharged 2 weeks ago for PNA Plan: - cont antibiotics (ceftriaxone + azithromycin). - Monitor respiratory status. - Follow up MRSA - Sputum culture #Orthostatic Hypotension Syncope Syncopal episode after rising from toilet, witnessed by family. Likely secondary to CO2 narcosis leading encephalopathy Baseline functional impairment and frailty. CPR performed for ~12 minutes. Patient is talking now Pt unlikely did not code and likely had syncopal episode, however had CPR done Plan: - Monitor orthostatic vitals. - Review medications for antihypertensives that may contribute. - Hydration support with IV fluids #Hypomagnesemia Serum Mg 1.4 mg/dL. Plan: - Replete magnesium IV, monitor for arrhythmias. - Recheck levels after repletion. #Hypertension #Hyperlipidemia Chronic Plan: ? Holding blood pressure medicines as blood pressures soft at this point ? Resumed home Lipitor 10 mg at bedtime ? Will f/u Lipid panel #Health Maintenance Disposition: Telemetry DVT prophylaxis: Heparin GI prophylaxis: Pepcid Diet: Pending Swallow eval CODE STATUS: DNR, selective treatment - Patient's care was discussed with my attending physician, Dr. Angus Bonner MD Internal Medicine PGY-3
[2025-02-15] MEDS: MORPHINE SULF INJ 10 MG/ML VIAL IVP (14:19)
--- NOTE | 2025-02-15 15:30 | PD.RESEVENT ---
Documentation for date of: 02/15/25 Event Note Event Note: Goals of care: Had a goals of care discussion with family regarding patient's prognosis. Resident was both the patient's daughter and patient's son. Discussion of the patient's poor prognosis due to her institutional blood disease was given. Family had understanding of the patient's prognosis. We discussed comfort measures. We discussed the medications and management of a patient in comfort care and end-of-life. All questions and concerns were addressed. Family had understanding of the process of comfort care. They decided to place the patient on comfort care. A referral to hospice was made. Management was discussed with RN. - Patient's care was discussed with my attending physician, Dr. Angus Bonner MD Internal Medicine PGY-3
[2025-02-15] MEDS: SCOPOLAMINE 1 MG TDSY TOP (15:42)
[2025-02-15] MEDS: MORPHINE SULF INJ 10 MG/ML VIAL 2 MG IVP ×3 (15:42→18:43)
[2025-02-15] MEDS: LIDOCAINE 5% 1 PATCH TOP (15:42)
[2025-02-15] MEDS: LORazepam 2 MG/ML VIAL 1 MG IVP ×2 (15:55→16:38)
[2025-02-15] MEDS: Morphine IV Drip 100mg/100ml 100 ML IV (19:25)
[2025-02-16] VITALS: PULSE 69
[2025-02-16 04:00] VITALS: PULSE 70
[2025-02-16] MEDS: LORazepam 2 MG/ML VIAL 1 MG IVP ×2 (04:41→20:05)
[2025-02-16 05:34] VITALS: BMI 31.9
[2025-02-16 08:00] VITALS: PULSE 67
--- NOTE | 2025-02-16 11:03 | ESPR_ITS ---
<Statement entered by Low Greco MD - 02/17/25 10:34> I have discussed and was present for the essential components of the history, physical examination, diagnosis, and treatment plan with the resident. I agree with the patient's care as documented by the resident and amended herein by me. Low Greco MD FACP. Documentation for date of: 02/16/25 Subjective Subjective Interval history: Patient seen and examined. On comfort care, resting comfortably. Family at bedside. Rounded with RN Exam Vital Signs Temp Pulse Resp BP Pulse Ox O2 Del Method O2 Flow Rate 98.1 F 67 22 H 160/110 H 100 Nasal Cannula 2 02/15/25 16:00 02/16/25 08:00 02/15/25 16:00 02/15/25 16:00 02/15/25 18:50 02/15/25 16:00 02/15/25 18:50 FiO2 35 02/15/25 16:00 Narrative Exam Constitutional: resting comfortably CVS: RRR, S1-S2 present, no murmurs RESP: diffused course breath sounds GI: non distended, non tender to palpation, NBS Objective Labs 02/15/25 04:26 02/15/25 04:26 ABG Interpretation ABG results: 02/14/25 02/14/25 02/15/25 19:03 22:07 00:10 ABG pH 7.34 L 7.36 7.34 L ABG pCO2 89 H* 82 H* 82 H* ABG pO2 98 99 218 H D ABG HCO3 48 H 46 H 44 H ABG O2 Saturation 99 H 99 H 101 H ABG Base Excess 18 H 17 H 15 H Quality Measures Quality Measures none Advance care planning discussed with:: patient Assessment & Plan Assessment Current Active Medications: Generic Name Dose Route Start Last Admin Trade Name Freq PRN Reason Stop Dose Admin Morphine Sulfate 100 mls @ 1 mls/hr 02/15/25 18:55 02/15/25 19:25 Morphine Sulfate Iv Drip 100mg/100ml IV 02/20/25 18:54 1 mg/hr .Q24H PRN 1 mls/hr PAIN (COMFORT CARE) Administration Protocol 1 MG/HR Lidocaine 1 patch 02/15/25 15:30 02/16/25 09:00 Lidocaine 5% 1 Patch TOP 03/17/25 15:29 Not Given QDAY TOYA Lorazepam 1 mg 02/15/25 15:26 02/16/25 04:41 Lorazepam 2 Mg/Ml Vial IVP 02/20/25 15:25 1 mg Q6HR PRN Administration ANXIETY Morphine Sulfate 2 mg 02/15/25 15:26 02/15/25 18:43 Morphine Sulf Inj 10 Mg/Ml Vial IVP 02/20/25 15:25 2 mg Q30M PRN Administration PAIN Ondansetron HCl 4 mg 02/15/25 15:26 Ondansetron Odt 4 Mg Tabrap PO 03/17/25 15:25 Q6HR PRN nausea Scopolamine 1 mg 02/15/25 15:30 02/15/25 15:42 Scopolamine 1 Mg Tdsy TOP 03/17/25 15:29 1 mg Q3D TOYA Administration Plan Assessment Gillian is a 84 y/o female with PMHx of chronic respiratory failure on 4L home O2, pulmonary fibrosis, hypertension, and hyperlipidemia, and dementia who is admitted for acute on chronic hypercapnic hypoxic respiratory failure #Acute on Chronic hypercapnic hypoxic Respiratory Failure secondary to #History of ILD #Community-Acquired Pneumonia #Orthostatic Hypotension Syncope Assessment: 4 L on home O2. Although in restrictive lung disease pts are less likely to be chronic retainers compared to obstructive lung disease, Pt is likely chronic retainer of CO2 due to severity of her pulmonary fibrosis Unsure if pt has had PFTs ABG: pH 7.34, pCO2 89, pO2 98, HCO3 48, chronic compensated hypercapnia with acute worsening. Extensive bilateral opacities on CXR Chest CT in 2023 shows severe pulmonary fibrosis Unsure if pt follows lung doctor Pulmonary fibrosis appears to be severe, family is aware and is possibly considering hospice due to chronic respiratory failure for patient Plan: -COMFORT CARE MEASURES - Patient's care was discussed with my attending physician, Dr. Angus Bonner MD Internal Medicine PGY-3
--- NOTE | 2025-02-16 11:15 | CHAP ---
Patient was visited by the Spiritual Care Volunteer who prayed for them. (Volunteer was in the hospital from 10:15-11:15)
[2025-02-16 12:00] VITALS: PULSE 70
[2025-02-16 13:33] VITALS: PULSE 52; RESP 16; O2SAT 82
[2025-02-17] MEDS: LORazepam 2 MG/ML VIAL 1 MG IVP ×2 (07:02→15:19)
[2025-02-17] MEDS: MORPHINE SULF INJ 10 MG/ML VIAL 2 MG IVP ×2 (07:06→15:26)
[2025-02-17 08:00] VITALS: BP 141/64; PULSE 76; RESP 16; TEMP 36; O2SAT 96
--- NOTE | 2025-02-17 09:17 | PC.SS ---
SS met with pt and dtr Bere at bedside to discuss DC planning and Hospice. Per Bere they need more time before taking pt home. SS inquired if they had chosen a hospice agency, per Bere pt was aligned with [facility] for HH and she is aware they also do hospice and would like to continue to utilize them. SS explained process for hospice. SS explained SS will submit referral to [facility] and they will most likely be in contact with them to get home situated for pt to transition to home with Hospice. Bere expressed concern with ensuring pt is comfortable and pain free. Bere also would like to be trained on how to administer medications to pt at home. SS explained [facility] will educate family on anything that is needed for pt to be home with hospice, comfortable and pain free. SS contacted Team C in regards to Hospice referral so SS can work on case.
--- NOTE | 2025-02-17 10:42 | PC.SS ---
Hospice referral submitted to [facility] as requested by family. Pending response.
[2025-02-17 10:43] VITALS: BMI 31.8
--- NOTE | 2025-02-17 11:13 | PC.SS ---
Addendum entered by Shelby Jerome 02/17/25 13:34: SS received a call from Veda [phone] [facility] that she has not heard from family yet. Per Veda her partner Madhavi will be in town and will stop by as she is familiar with the family and will stop by to answer any questions and get update on DME needed Original Note: SS received a call from [facility], Veda [phone] in regards to pt. Per Veda they can deliver DME that is needed today if coordinated with family/ SS informed Veda pt dtr Bere is the main medical DM for pt. SS went to bedside to update Bere but she was not there, pt was accompanied by her son Abimael. SS updated Abimael and gave ERIC Mccollum information to relay to Bere as her cell phone was off when SS attempted to call.
--- NOTE | 2025-02-17 13:53 | ESPR_ITS ---
<Statement entered by Ramona Meneses MD - 02/17/25 17:45> Patient seen at bedside along with her son. Patient is currently on comfort care measures, seen resting comfortably. Hospice referral placed, and at this time arrangements will be made to keep patient comfortable when discharging from hospital. I discussed with and supervised the qa intern physician who took care of this patient. I personally saw and examined the patient and discussed the assessment and plan with the entire medicine team, including my attending Dr. Ferguson, I agree with most of the assessment and plan as documented below Ramona Meneses M.D. PGY-2 Documentation for date of: 02/17/25 Subjective Subjective Interval history: No overnight events. Patient seen at bedside, resting comfortably. Exam deferred for patient comfort. Hospice care being arranged at [facility], will continue to hold patient until then. Exam Vital Signs Temp Pulse Resp BP Pulse Ox O2 Del Method O2 Flow Rate 96.8 F 76 16 141/64 H 96 Nasal Cannula 2 02/17/25 08:00 02/17/25 08:00 02/17/25 08:00 02/17/25 08:00 02/17/25 08:00 02/17/25 08:00 02/17/25 08:00 FiO2 35 02/15/25 16:00 Narrative Exam Deferred for patient comfort. Objective Labs 02/15/25 04:26 02/15/25 04:26 ABG Interpretation ABG results: 02/14/25 02/14/25 02/15/25 19:03 22:07 00:10 ABG pH 7.34 L 7.36 7.34 L ABG pCO2 89 H* 82 H* 82 H* ABG pO2 98 99 218 H D ABG HCO3 48 H 46 H 44 H ABG O2 Saturation 99 H 99 H 101 H ABG Base Excess 18 H 17 H 15 H Quality Measures Quality Measures VTE prophylaxis Advance care planning discussed with:: patient and child Assessment & Plan Assessment Current Active Medications: Generic Name Dose Route Start Last Admin Trade Name Freq PRN Reason Stop Dose Admin Morphine Sulfate 100 mls @ 1 mls/hr 02/15/25 18:55 02/15/25 19:25 Morphine Sulfate Iv Drip 100mg/100ml IV 02/20/25 18:54 1 mg/hr .Q24H PRN 1 mls/hr PAIN (COMFORT CARE) Administration Protocol 1 MG/HR Lidocaine 1 patch 02/15/25 15:30 02/17/25 08:38 Lidocaine 5% 1 Patch TOP 03/17/25 15:29 Not Given QDAY TOYA Lorazepam 1 mg 02/15/25 15:26 02/17/25 07:02 Lorazepam 2 Mg/Ml Vial IVP 02/20/25 15:25 1 mg Q6HR PRN Administration ANXIETY Morphine Sulfate 2 mg 02/15/25 15:26 02/17/25 07:06 Morphine Sulf Inj 10 Mg/Ml Vial IVP 02/20/25 15:25 2 mg Q30M PRN Administration PAIN Ondansetron HCl 4 mg 02/15/25 15:26 Ondansetron Odt 4 Mg Tabrap PO 03/17/25 15:25 Q6HR PRN nausea Scopolamine 1 mg 02/15/25 15:30 02/15/25 15:42 Scopolamine 1 Mg Tdsy TOP 03/17/25 15:29 1 mg Q3D TOYA Administration Plan Gillian is a 84 y/o female with PMHx of chronic respiratory failure on 4L home O2, pulmonary fibrosis, hypertension, and hyperlipidemia, and dementia who is admitted for acute on chronic hypercapnic hypoxic respiratory failure #Acute on Chronic hypercapnic hypoxic Respiratory Failure secondary to #History of ILD #Community-Acquired Pneumonia #Orthostatic Hypotension Syncope 4 L on home O2. Although in restrictive lung disease pts are less likely to be chronic retainers compared to obstructive lung disease, Pt is likely chronic retainer of CO2 due to severity of her pulmonary fibrosis Unsure if pt has had PFTs ABG: pH 7.34, pCO2 89, pO2 98, HCO3 48, chronic compensated hypercapnia with acute worsening. Extensive bilateral opacities on CXR Chest CT in 2023 shows severe pulmonary fibrosis Unsure if pt follows lung doctor Pulmonary fibrosis appears to be severe, family is aware. Decision was made to place patient on comfort care in line with patient's wishes and values. -COMFORT CARE MEASURES Plan of care discussed with senior resident Dr. Meneses PGY?[address] Ferguson. Casa Moy MD PGY?1 Attending Provider Attestation/Addendum I have discussed and was present for the essential components of the history, physical examination, diagnosis, and treatment plan with the resident. I agree with the patient's care as documented by the resident and amended herein by me. Jorge Ferguson, DO. Patient on comfort measures only status, morphine drip in place. workers compensation claims examiner notified of potential hospice placement at home if the patient does not pass here in the hospital within the next day or so. I did explain this to the patient's son today and he understood. Will continue to monitor the patient closely and provide the family with any necessary support they may need. Although this document has been carefully reviewed, there may still be some phonetic and other typographical errors. These errors are purely grammatical due to imperfections in the software program and should not be construed in any way to compromise the substance of the patient's medical care during this visit.
[2025-02-17] MEDS: SCOPOLAMINE 1 MG TDSY TOP (15:11)
[2025-02-18] MEDS: LORazepam 2 MG/ML VIAL 1 MG IVP ×2 (00:12→08:29)
[2025-02-18] MEDS: MORPHINE SULF INJ 10 MG/ML VIAL 2 MG IVP ×2 (08:38→09:46)
--- NOTE | 2025-02-18 16:27 | DES_ITS ---
Documentation for date of: 02/18/25 Summary Date and Time Date of admission: 02/14/25 20:47 Date of : 02/18/25 Time of : 10:30 Summary Hospital Course: 84 y/o female with PMHx of chronic respiratory failure on 4L home O2, pulmonary fibrosis, hypertension, and hyperlipidemia, and dementia who comes in for an evaluation of shortness of breath while at home using the restroom. Patient recently been hospitalized for chronic respiratory failure. Patient was initially treated with antibiotics, prednisone, DuoNebs for pneumonia and chronic respiratory failure due to pulmonary fibrosis. Goals of care discussion held with patient's son and daughter on 02/15/2025, after which decision was made to place patient on comfort care in line with patient's values and wishes. Patient remained on morphine drip comfort care measures. Physician was called to room at 10:25 on 02/18/2025 to pronounce that Gillian Morocho, 84 y/o F has . No spontaneous movements, no response to tactile or noxious stimuli. Listened for heart and lung sounds, none were found. Pupils were fixed, nonreactive to light, oculocephalic reflex absent. Patient declared by physician at 10:30 pm. Confirmed and witnessed by senior resident. Patient's case was discussed with senior resident Dr. Caldera PGY?[address] Ferguson. Casa Moy MD PGY?1 Senior resident attestation: Patient evaluated and examined at the bedside, plan of care discussed with rest of the team including my attending physician, except as noted. Verenice PGY2 Additional Data Confirmation of as documented by pronouncing clinician: no pulse, no respirations, no heart sounds, pupils fixed and dilated and other Family: at bedside Attending/PCP notified?: Yes Attending physician: Luis Miguel Ferguson, DO Was code activated?: No Autopsy requested?: No claims examiner notified?: No Organ bank notified?: No Advance directives: Yes Hospice patient?: Yes (Comfort care) Visit Providers Provider Primary care physician: Eunice Monroy([facility]), MARIANA Consults: 02/14/25 23:19 Referral Respiratory Therapy Routine Comment: 02/15/25 15:28 Referral Hospice Routine Comment: 02/17/25 09:22 Referral Hospice Routine Comment: Diagnosis PCOD Cause of : Respiratory failure Discharge Plan Plan Patient Disposition: Prescriptions/Referrals Referrals: Papi)Eunice PA-C [Primary Care Provider] - Patient/Caregiver Discharge Instructions Print Language: Turkmen
--- NOTE | 2025-02-18 16:27 | PD.DPN ---
Documentation for date of: 02/18/25 Pronouncement Note Date and Time of Date of : 02/18/25 Time of : 10:30 PCOD Preliminary cause of : Respiratory failure Summary Additional details: I was called to room at 10:25 to pronounce that Gillian Morocho, 84 y/o F has . No spontaneous movements, o response to tactile or noxious stimuli. Listened for heart and lung sounds, none were found. Pupils were fixed, nonreactive to light, oculocephalic reflex absent. Patient declared by physician at 10:30 pm. Confirmed and witnessed by senior resident. Casa Moy MD PGY-1 Additional Data Confirmation of : no pulse, no respirations, no heart sounds, pupils fixed and dilated and other Family: at bedside Attending/PCP notified?: Yes Attending physician: Luis Miguel Ferguson, DO Was code activated?: No Autopsy requested?: No district medical examiner notified?: No Organ bank notified?: No Advance directives: Yes
== END 2025-02-18 13:48 | disposition expired | DRG 189 ==
LOC: SERX 21:07 → SERHOLD 21:13 → S2NX 02-15 00:29 → S2SX 02-17 05:48 → S3NX 02-17 05:48 → S3SX 02-17 10:25
PROVIDERS: Emergency Medicine; Admitting Provider Internal Medicine; Emergency Provider Emergency Medicine; PCP Nurse Practitioner Family; Visit Provider Student in an Organized Health Care Education/Training Program
DX: J96.22 Acute and chronic respiratory failure with hypercapnia (principal); J18.9 Pneumonia, unspecified organism; G93.40 Encephalopathy, unspecified; J44.0 Chronic obstructive pulmonary disease with (acute) lower respiratory infection; J44.1 Chronic obstructive pulmonary disease with (acute) exacerbation; J96.21 Acute and chronic respiratory failure with hypoxia; F03.90 Unspecified dementia, unspecified severity, without behavioral disturbance, psychotic disturbance, mood disturbance, and anxiety; J84.10 Pulmonary fibrosis, unspecified; I10 Essential (primary) hypertension; E78.5 Hyperlipidemia, unspecified; I95.1 Orthostatic hypotension; I11.9 Hypertensive heart disease without heart failure; E83.42 Hypomagnesemia; Z99.81 Dependence on supplemental oxygen; Z79.899 Other long term (current) drug therapy; Z66 Do not resuscitate; Z87.01 Personal history of pneumonia (recurrent); Z51.5 Encounter for palliative care; Z88.5 Allergy status to narcotic agent; Z88.0 Allergy status to penicillin; Z88.6 Allergy status to analgesic agent
CPT/HCPCS: 36415; 36600; 71045; 80048; 80053; 80061; 82803; 83036; 83690; 83735; 83880; 84443; 84484; 85025; 85610; 85730; 87081; 87811; 93005; 94640; 94660; 96365; 96366; 96368; 96372; 99285; A9270; J0456; J0696; J1643; J2060; J2270; J3475; J3490; J7030; J7050; J7512